=== PATIENT | male | born 1940 | race Caucasian/White ===

== ENCOUNTER 2017-05-19 16:13 | Inpatient (IN) | payer MEDICARE ==
[2017-05-19] MEDS ORDERED: VANCOMYCIN IV PER PHARMACY 1 EACH MISC MISCELLANE PRN (16:39)
[2017-05-19] MEDS ORDERED: VANCOMYCIN 2,000 MG in SODIUM CHLORIDE 0.9% 500 ML IVPB STA (16:46)
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
[2017-05-19 17:14] LABS: Basophils # (A) 0.1 k/uL (0-0.2); Basophils % (A) 0 %; Eosinophils # (A) 0.1 k/uL (0-0.7); Eosinophils % (A) 1 %; HCT 42.2 % (39.0-53.0); HGB 14.3 gm/dL (13.0-17.5); Lymphocytes # (A) 1.4 k/uL (1.0-4.8); Lymphocytes % (A) 8 %; MCHC 33.9 g/dL (31.0-37.0); MCV 91.4 fL (80.0-100.0); Mean Platelet Volume 9.7; Monocytes % (A) 6 %; Neutrophils # (A) 14.5 k/uL (1.3-7.7); Neutrophils % (A) 83 %; Platelet Count 127 k/uL (150-450); RBC 4.62 m/uL (4.30-5.90); RDW 13.5 % (11.5-15.5); WBC 17.4 k/uL (3.8-10.6)
[2017-05-19 17:28] LABS: Albumin 3.3 g/dL (3.5-5.0); Potassium 4.4 mmol/L (3.5-5.1); Total Bilirubin 0.9 mg/dL (0.2-1.3); Total Protein 6.7 g/dL (6.3-8.2)
[2017-05-19 18:05] LABS: INR 1.1 (<1.2); Partial Thromboplastin Time 28.4 sec (22.0-30.0); Prothrombin Time 10.8 sec (9.0-12.0)
--- NOTE | 2017-05-19 18:26 | US ---
EXAMINATION TYPE: US venous doppler duplex LE LT DATE OF EXAM: 05/19/2017 6:05 PM COMPARISON: NONE CLINICAL HISTORY: Pain. Left leg pain and edema. SIDE PERFORMED: Left TECHNIQUE: The lower extremity deep venous system is examined utilizing real time linear array sonog amelie with graded compression, doppler sonography and color-flow sonography. VESSELS IMAGED: External Iliac Vein (EIV) Common Femoral Vein Deep Femoral Vein Greater Saphenous Vein * Femoral Vein Popliteal Vein Small Saphenous Vein * Proximal Calf Veins (* superficial vessels) Left Leg: Negative for DVT No evidence of DVT left leg. IMPRESSION: Normal exam. No evidence of deep venous thrombosis in the left leg.
[2017-05-19] MEDS ORDERED: NALOXONE 0.4 MG/ML 1 ML VIAL IV PRN (18:29)
[2017-05-19] MEDS ORDERED: ONDANSETRON 4 MG/2 ML VIAL IVP PRN (18:29)
[2017-05-19] MEDS: SODIUM CHLORIDE 0.9% 1,000 ML IV SCH (19:15)
[2017-05-19 20:10] LABS: Glucose,Whole Blood 139 mg/dL (75-99)
[2017-05-19] MEDS: PROPAFENONE 150 MG TAB PO SCH (20:24)
[2017-05-19] MEDS: oxyCODONE-APAP 10-325MG 1 EACH TAB PO PRN (20:24)
[2017-05-19] MEDS: PANTOPRAZOLE 40 MG TABLET PO SCH (20:24)
[2017-05-19] MEDS: FUROSEMIDE 40 MG TAB PO SCH (20:24)
[2017-05-19] MEDS: ASPIRIN 325 MG TAB PO SCH (20:25)
[2017-05-19] MEDS ORDERED: INSULIN DETEMIR 100 UNIT/ML 10 ML VIAL SQ SCH (21:00)
[2017-05-19] MEDS: INSULIN ASPART 100 UNIT/ML 1 ML 10 ML VIAL SQ SCH (21:16)
[2017-05-20 01:18] LABS: Hemoglobin A1C 6.5 % (4.0-6.0)
[2017-05-20 05:17] LABS: Glucose,Whole Blood 31 mg/dL (75-99)
[2017-05-20] MEDS ORDERED: DEXTROSE 50%-WATER 50 ML SYRINGE IVP ONE (05:17)
[2017-05-20 05:33] LABS: Glucose,Whole Blood 107 mg/dL (75-99)
[2017-05-20 06:34] LABS: Glucose,Whole Blood 70 mg/dL (75-99)
[2017-05-20 07:14] LABS: Glucose,Whole Blood 60 mg/dL (75-99)
[2017-05-20] MEDS: SODIUM CHLORIDE 0.9% 1,000 ML IV SCH ×2 (07:25→12:37)
[2017-05-20 07:36] LABS: Glucose,Whole Blood 82 mg/dL (75-99)
[2017-05-20] MEDS: INSULIN ASPART 100 UNIT/ML 1 ML 10 ML VIAL SQ SCH ×4 (07:42→20:47)
[2017-05-20 07:50] LABS: Basophils % (A) 0 %; Eosinophils % (A) 0 %; HCT 41.5 % (39.0-53.0); HGB 13.6 gm/dL (13.0-17.5); Lymphocytes # (A) 0.8 k/uL (1.0-4.8); Lymphocytes % (A) 5 %; MCH 30.5 pg (25.0-35.0); MCHC 32.8 g/dL (31.0-37.0); MCV 93.2 fL (80.0-100.0); Mean Platelet Volume 9.7; Monocytes # (A) 0.9 k/uL (0-1.0); Monocytes % (A) 6 %; Neutrophils # (A) 12.6 k/uL (1.3-7.7); Neutrophils % (A) 87 %; Platelet Count 121 k/uL (150-450); RBC 4.46 m/uL (4.30-5.90); RDW 13.4 % (11.5-15.5); WBC 14.5 k/uL (3.8-10.6)
[2017-05-20] MEDS: LATANOPROST 0.005% OPHTH DROPS 2.5 ML BTL RIGHT EYE SCH (07:51)
[2017-05-20] MEDS: MULTIVITAMINS, THERA 1 EACH TAB PO SCH (07:51)
[2017-05-20] MEDS: PROPAFENONE 150 MG TAB PO SCH ×3 (07:52→22:17)
[2017-05-20] MEDS: BRIMONIDINE TARTRATE 0.2% DROPS 5 ML BTL RIGHT EYE SCH (07:52)
[2017-05-20] MEDS: FUROSEMIDE 40 MG TAB PO SCH ×2 (07:52→18:13)
[2017-05-20] MEDS: B COMPLEX-VIT C-VIT E-ZINC 1 EACH TAB PO SCH (07:52)
[2017-05-20] MEDS: hydrALAZINE HCL 50 MG TAB PO SCH (07:52)
[2017-05-20] MEDS: FERROUS SULFATE 325 MG TAB PO SCH (07:53)
[2017-05-20] MEDS: FOLIC ACID 1 MG TAB PO SCH (07:53)
[2017-05-20 07:58] LABS: Albumin 3.1 g/dL (3.5-5.0); Calcium 8.6 mg/dL (8.4-10.2); Potassium 3.3 mmol/L (3.5-5.1); Total Bilirubin 0.7 mg/dL (0.2-1.3); Total Protein 6.2 g/dL (6.3-8.2)
[2017-05-20] MEDS: VANCOMYCIN 2,000 MG in SODIUM CHLORIDE 0.9% 500 ML IVPB SCH (07:58)
[2017-05-20] MEDS: oxyCODONE-APAP 10-325MG 1 EACH TAB PO PRN ×3 (07:58→20:28)
[2017-05-20 08:23] LABS: Glucose,Whole Blood 88 mg/dL (75-99)
[2017-05-20 09:18] LABS: Glucose,Whole Blood 96 mg/dL (75-99)
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
[2017-05-20 11:32] LABS: Glucose,Whole Blood 132 mg/dL (75-99)
[2017-05-20] MEDS ORDERED: Potassium Replacement Protocol 1 EACH MISC MISCELLANE PRN ×2 (12:41→18:12)
[2017-05-20] MEDS: POTASSIUM CHLORIDE ER 20 MEQ TAB.ER PO SCH (14:17)
--- NOTE | 2017-05-20 14:44 | XR ---
EXAMINATION TYPE: XR chest 2V DATE OF EXAM: 05/20/2017 COMPARISON: 04/07/2014 TECHNIQUE: PA and lateral views submitted. HISTORY: Shortness of breath FINDINGS: The lungs are clear and there is no pneumothorax, pleural effusion, or focal pneumonia. There is a interstitial pattern. Arthropathy of the shoulders. Hypertrophic and degenerative change of the spine . IMPRESSION: 1. Interstitial pattern can be seen with interstitial pneumonitis, atypical pneumonia or mild venous congestion. Correlate clinically..
[2017-05-20 17:08] LABS: Glucose,Whole Blood 106 mg/dL (75-99)
[2017-05-20] MEDS ORDERED: POTASSIUM CHLORIDE ER 20 MEQ TAB.ER PO SCH (19:00)
[2017-05-20] MEDS: PANTOPRAZOLE 40 MG TABLET PO SCH (20:28)
[2017-05-20] MEDS: ASPIRIN 325 MG TAB PO SCH (20:28)
[2017-05-20 20:34] LABS: Glucose,Whole Blood 151 mg/dL (75-99)
[2017-05-20] MEDS: INSULIN DETEMIR 100 UNIT/ML 10 ML VIAL SQ SCH (20:48)
[2017-05-20] MEDS ORDERED: PREGABALIN 100 MG CAP PO SCH (21:00)
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
[2017-05-20] MEDS: AZTREONAM 2 GM in SODIUM CHLORIDE 0.9% 100 ML IVPB SCH (23:48)
[2017-05-21] MEDS: VANCOMYCIN 2,000 MG in SODIUM CHLORIDE 0.9% 500 ML IVPB SCH ×2 (01:12→17:40)
[2017-05-21 01:52] LABS: Glucose,Whole Blood 149 mg/dL (75-99)
[2017-05-21 07:30] LABS: Glucose,Whole Blood 156 mg/dL (75-99)
[2017-05-21 07:59] LABS: HCT 37.3 % (39.0-53.0); HGB 12.6 gm/dL (13.0-17.5); MCH 31.4 pg (25.0-35.0); MCHC 33.8 g/dL (31.0-37.0); Mean Platelet Volume 9.1; Platelet Count 122 k/uL (150-450); RBC 4.02 m/uL (4.30-5.90); RDW 13.3 % (11.5-15.5); WBC 11.9 k/uL (3.8-10.6)
[2017-05-21] MEDS: AZTREONAM 2 GM in SODIUM CHLORIDE 0.9% 100 ML IVPB SCH ×3 (08:06→23:23)
[2017-05-21 08:13] LABS: Calcium 8.6 mg/dL (8.4-10.2); Potassium 3.7 mmol/L (3.5-5.1)
[2017-05-21] MEDS: INSULIN ASPART 100 UNIT/ML 1 ML 10 ML VIAL SQ SCH ×4 (08:18→21:40)
[2017-05-21] MEDS: B COMPLEX-VIT C-VIT E-ZINC 1 EACH TAB PO SCH (10:07)
[2017-05-21] MEDS: FOLIC ACID 1 MG TAB PO SCH (10:08)
[2017-05-21] MEDS: MULTIVITAMINS, THERA 1 EACH TAB PO SCH (10:08)
[2017-05-21] MEDS: FERROUS SULFATE 325 MG TAB PO SCH (10:08)
[2017-05-21 10:20] LABS: Glucose,Whole Blood 192 mg/dL (75-99)
[2017-05-21] MEDS ORDERED: FUROSEMIDE 10 MG/ML 4 ML VIAL IV STA (10:20)
--- NOTE | 2017-05-21 10:38 | P.PN ---
Subjective 77-year-old gentleman admitted for sepsis secondary to left lower limb cellulitis patient is lethargic sitting on the side of the bed. Patient's chest x-ray did show some pulmonary edema along obtain a BNP probably an echocardiogram is alert in the day. I do not see any echo cardiac exam and this hospitalization patient will be the limiting monitored. Patient's pain is presently on Azetrenam and vancomycin. Objective - Vital Signs Vital signs: Vital Signs Temp 98.2 F 05/21/17 07:00 Pulse 75 05/21/17 07:00 Resp 18 05/21/17 07:00 BP 157/82 05/21/17 07:00 Pulse Ox 94 L 05/21/17 07:00 Intake & Output 05/20/17 05/21/17 05/21/17 18:59 06:59 18:59 Intake Total 500 800 Output Total 251 300 Balance 500 549 -300 Intake: Intake, IV Titration 500 680 Amount Aztreonam 2 gm In Sodium 100 Chloride 0.9% 100 ml @ 100 mls/hr IVPB Q8HR [facility] Rx#:[id number] Sodium Chloride 0.9% 1, 80 000 ml @ 100 mls/hr IV . Q10H [facility] Rx#:[id number] Vancomycin 2,000 mg In 500 500 Sodium Chloride 0.9% 500 ml @ 167 mls/hr IVPB Q16H [facility] Rx#:[id number] Oral 120 Output: Urine 251 300 Other: Voiding Method Urinal Urinal # Voids 2 - Exam GENERAL: The patient is alert and oriented x3, not in any acute distress. Well developed, well nourished. Patient is lethargic HEENT: Pupils are round and equally reacting to light. EOMI. No scleral icterus. No conjunctival pallor. Normocephalic, atraumatic. No pharyngeal erythema. No thyromegaly. CARDIOVASCULAR: S1 and S2 present. No murmurs, rubs, or gallops. PULMONARY: Chest is clear to auscultation, no wheezing or crackles. ABDOMEN: Soft, nontender, nondistended, normoactive bowel sounds. No palpable organomegaly. MUSCULOSKELETAL: No joint swelling or deformity. EXTREMITIES: No cyanosis, clubbing, she does have increased swelling of the left leg with local is of temperature redness extending up to the mid leg area circumferential patient does have Charcot foot deformity. 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 SKIN: Mentioned above - Labs CBC & Chem 7: 05/21/17 07:06 05/21/17 07:06 Labs: Abnormal Lab Results - Last 24 Hours (Table) 05/20/17 05/20/17 05/20/17 Range/Units 11:30 17:06 20:32 WBC (3.8-10.6) k/uL RBC (4.30-5.90) m/uL Hgb (13.0-17.5) gm/dL Hct (39.0-53.0) % Plt Count (150-450) k/uL Glucose (74-99) mg/dL POC Glucose (mg/dL) 132 H 106 H 151 H (75-99) mg/dL 05/21/17 05/21/17 05/21/17 Range/Units 01:50 07:05 07:06 WBC (3.8-10.6) k/uL RBC (4.30-5.90) m/uL Hgb (13.0-17.5) gm/dL Hct (39.0-53.0) % Plt Count (150-450) k/uL Glucose 159 H (74-99) mg/dL POC Glucose (mg/dL) 149 H 156 H (75-99) mg/dL 05/21/17 05/21/17 Range/Units 07:06 10:17 WBC 11.9 H (3.8-10.6) k/uL RBC 4.02 L (4.30-5.90) m/uL Hgb 12.6 L (13.0-17.5) gm/dL Hct 37.3 L (39.0-53.0) % Plt Count 122 L (150-450) k/uL Glucose (74-99) mg/dL POC Glucose (mg/dL) 192 H (75-99) mg/dL Microbiology - Last 24 Hours (Table) 05/19/17 16:55 Blood Culture - Preliminary Blood No Growth after 24 hours Assessment and Plan Plan: -Left leg cellulitis, complicated sepsis: Patient on Vanco mycin and Azetrenam to be continued infectious disease will be consulted white blood cell count has come down. -Possible congestive heart failure chronic diastolic dysfunction with acute exacerbation patient will be given a dose of IV Lasix -Leukocytosis: Secondary to cellulitis of the left leg which is improving. -Type 2 diabetes mellitus: Blood sugars are well controlled at home patient blood sugars are low here because of which was cutting down the Lantus to 45 units rest of her regimen will be continued monitor blood sugars titrate accordingly. -Hypertension -Atrial fibrillation: Rate controlled proximal atrial fibrillation not on any anticoagulation. 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
[2017-05-21] MEDS: FUROSEMIDE 40 MG TAB PO SCH ×2 (10:44→16:26)
[2017-05-21] MEDS: PROPAFENONE 150 MG TAB PO SCH ×3 (10:44→21:07)
[2017-05-21] MEDS: BRIMONIDINE TARTRATE 0.2% DROPS 5 ML BTL RIGHT EYE SCH (10:45)
[2017-05-21] MEDS: LATANOPROST 0.005% OPHTH DROPS 2.5 ML BTL RIGHT EYE SCH (10:45)
[2017-05-21] MEDS: hydrALAZINE HCL 50 MG TAB PO SCH (10:46)
[2017-05-21 11:31] LABS: Glucose,Whole Blood 209 mg/dL (75-99)
[2017-05-21 17:11] LABS: Glucose,Whole Blood 159 mg/dL (75-99)
[2017-05-21 20:17] LABS: Glucose,Whole Blood 161 mg/dL (75-99)
[2017-05-21] MEDS: PANTOPRAZOLE 40 MG TABLET PO SCH (21:07)
[2017-05-21] MEDS: ASPIRIN 325 MG TAB PO SCH (21:07)
--- NOTE | 2017-05-21 21:38 | P.PN ---
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 He's had a major improvement of his physical status after his amputation and his relates has been much more compliant with medical therapy. The patient does have known peripheral vascular disease and has now developed significant swelling and erythema the left lower extremity with what appears to be some injury to the pretibial area. He is a chronic Charcot foot and ankle. Has not noticed any significant foot or ankle lesions or ulcerations. Leg swelling however is considerably worse than its baseline. The patient himself feels very poorly. He thinks he's had a bit of fever but no chills or rigors. The patient's family convinced him to come to Hospital, the patient's son who lives out of town threaten to fly to town to bring him to Hospital and constantly he did agree and presented emergency center. There he is not evidence of significant synovitis of the left leg as well as leukocytosis and subsequently has been admitted and has vascular surgery as well as infectious disease consultation was requested. Since admission the patient weight is feeling slightly better at this time has been able to eat some of his dinner and is denying other acute new symptoms. 05/21/2017 patient is deathly more comfortable. He's had some abdominal discomfort today and a poor appetite. Has not had nausea or emesis. The patient's relates is difficult to get him to eat today because he didn't like his dinner. We discussed that there are many other options he needs to use some protein to heal and he relates that he'll accept a tuna sandwich. He is denying fever or chills. Just feels poorly. Objective - Vital Signs Vital signs: Vital Signs Temp 97.3 F L 05/21/17 19:29 Pulse 71 05/21/17 19:29 Resp 18 05/21/17 19:29 BP 177/85 05/21/17 19:29 Pulse Ox 95 05/21/17 16:02 Intake & Output 05/21/17 05/21/17 05/22/17 06:59 18:59 06:59 Intake Total 800 Output Total 251 1875 Balance 549 -1875 Intake: Intake, IV Titration 680 Amount Aztreonam 2 gm In Sodium 100 Chloride 0.9% 100 ml @ 100 mls/hr IVPB Q8HR [facility] Rx#:[id number] Sodium Chloride 0.9% 1, 80 000 ml @ 100 mls/hr IV . Q10H ASH[facility] Rx#:[id number] Vancomycin 2,000 mg In 500 Sodium Chloride 0.9% 500 ml @ 167 mls/hr IVPB Q16H [facility] Rx#:[id number] Oral 120 Output: Urine 251 1875 Other: Voiding Method Urinal Urinal # Voids 2 1 - Exam HEENT: Anicteric conjunctiva are pink and moist nasal mucosa grossly intact without significant lesions, there is no thrush. Neck: The neck is supple without significant lymphadenopathy or thyromegaly. Lungs: Good bilateral air entry few wheezes are scattered There is no significant bronchial sounds. There is no egophony or dullness. Heart: Regular rate and rhythm with an audible S1-S2, no S3 no S4. There is no significant murmur click or rub, PMI was nondisplaced. Abdomen: Positive bowel sounds soft and nontender without palpable masses or organomegaly. There was no guarding or rebound. Extremities: The upper extremities have excellent pulses they are symmetric, no significant petechiae or telangiectasia. No splinter hemorrhages were noted. The right BKA site is intact without erythema or difficulty. The left leg is evidence of some swelling that is present distally. He has the Charcot foot and ankle that is deformed. the dense erythema that goes from the base of the toes to just below the knee is now improved and most evident on the foot today. The patient has some tenderness. There is evidence of some injury to the pretibial area has no purulence. The foot is warm with capillary refill of less than 2 seconds Neuro: Awake alert oriented to person place and time. There are no acute new gross focal sensory motor deficits. - Labs CBC & Chem 7: 05/21/17 07:06 05/21/17 07:06 Labs: Abnormal Lab Results - Last 24 Hours (Table) 05/21/17 05/21/17 05/21/17 Range/Units 01:50 07:05 07:06 WBC (3.8-10.6) k/uL RBC (4.30-5.90) m/uL Hgb (13.0-17.5) gm/dL Hct (39.0-53.0) % Plt Count (150-450) k/uL Glucose 159 H (74-99) mg/dL POC Glucose (mg/dL) 149 H 156 H (75-99) mg/dL 05/21/17 05/21/17 05/21/17 Range/Units 07:06 10:17 11:28 WBC 11.9 H (3.8-10.6) k/uL RBC 4.02 L (4.30-5.90) m/uL Hgb 12.6 L (13.0-17.5) gm/dL Hct 37.3 L (39.0-53.0) % Plt Count 122 L (150-450) k/uL Glucose (74-99) mg/dL POC Glucose (mg/dL) 192 H 209 H (75-99) mg/dL 05/21/17 05/21/17 Range/Units 17:05 20:16 WBC (3.8-10.6) k/uL RBC (4.30-5.90) m/uL Hgb (13.0-17.5) gm/dL Hct (39.0-53.0) % Plt Count (150-450) k/uL Glucose (74-99) mg/dL POC Glucose (mg/dL) 159 H 161 H (75-99) mg/dL Microbiology - Last 24 Hours (Table) 05/19/17 16:55 Blood Culture - Preliminary Blood No Growth after 48 hours Laboratory Results WBC 11.9 k/uL (3.8-10.6) H 05/21/17 07:06 RBC 4.02 m/uL (4.30-5.90) L 05/21/17 07:06 Hgb 12.6 gm/dL (13.0-17.5) L 05/21/17 07:06 Hct 37.3 % (39.0-53.0) L 05/21/17 07:06 MCV 93.0 fL (80.0-100.0) 05/21/17 07:06 MCH 31.4 pg (25.0-35.0) 05/21/17 07:06 MCHC 33.8 g/dL (31.0-37.0) 05/21/17 07:06 RDW 13.3 % (11.5-15.5) 05/21/17 07:06 Plt Count 122 k/uL (150-450) L 05/21/17 07:06 Neutrophils % 87 % 05/20/17 06:59 Lymphocytes % 5 % 05/20/17 06:59 Monocytes % 6 % 05/20/17 06:59 Eosinophils % 0 % 05/20/17 06:59 Basophils % 0 % 05/20/17 06:59 Neutrophils # 12.6 k/uL (1.3-7.7) H 05/20/17 06:59 Lymphocytes # 0.8 k/uL (1.0-4.8) L 05/20/17 06:59 Monocytes # 0.9 k/uL (0-1.0) 05/20/17 06:59 Eosinophils # 0.0 k/uL (0-0.7) 05/20/17 06:59 Basophils # 0.0 k/uL (0-0.2) 05/20/17 06:59 PT 10.8 sec (9.0-12.0) 05/19/17 16:55 INR 1.1 (<1.2) 05/19/17 16:55 APTT 28.4 sec (22.0-30.0) 05/19/17 16:55 Sodium 140 mmol/L (137-145) 05/21/17 07:06 Potassium 3.7 mmol/L (3.5-5.1) 05/21/17 07:06 Chloride 104 mmol/L (98-107) 05/21/17 07:06 Carbon Dioxide 25 mmol/L (22-30) 05/21/17 07:06 Anion Gap 11 mmol/L 05/21/17 07:06 BUN 16 mg/dL (9-20) 05/21/17 07:06 Creatinine 1.01 mg/dL (0.66-1.25) 05/21/17 07:06 Est GFR (CKD-EPI)AfAm 83 (>60 ml/min/1.73 sqM) 05/21/17 07:06 Est GFR (CKD-EPI)NonAf 72 (>60 ml/min/1.73 sqM) 05/21/17 07:06 Glucose 159 mg/dL (74-99) H 05/21/17 07:06 POC Glucose (mg/dL) 161 mg/dL (75-99) H 05/21/17 20:16 POC Glu Retread Supervisor ID Maribel Akhtar 05/21/17 20:[address] Glu mg/dL 140 05/19/17 16:55 Hemoglobin A1c 6.5 % (4.0-6.0) H 05/19/17 16:55 Plasma Lactic Acid Aurelio 1.7 mmol/L (0.7-2.0) 05/19/17 16:55 Calcium 8.6 mg/dL (8.4-10.2) 05/21/17 07:06 Magnesium 2.2 mg/dL (1.6-2.3) 05/20/17 06:59 Total Bilirubin 0.7 mg/dL (0.2-1.3) 05/20/17 06:59 AST 44 U/L (17-59) 05/20/17 06:59 ALT 30 U/L (21-72) 05/20/17 06:59 Alkaline Phosphatase 124 U/L (38-126) 05/20/17 06:59 NT-Pro-B Natriuret Pep 1200 pg/mL 05/21/17 07:06 Total Protein 6.2 g/dL (6.3-8.2) L 05/20/17 06:59 Albumin 3.1 g/dL (3.5-5.0) L 05/20/17 06:59 Microbiology 05/19/17 16:55 Blood Blood Culture - Preliminary No Growth after 48 hours Assessment and Plan (1) Cellulitis of left lower extremity Narrative/Plan: 77 show male who has a history of severe peripheral vascular disease and diabetes mellitus who had a significant right lower extremity diabetic ulceration that became gangrenous resulted in the right below-knee amputation. Now presents with a significant cajoling from his family to emergency center because of the significant sialitis the left leg. The family was concerned that he was having a process similar to that of 3 years ago which resulted in the right lower extremity amputation. The patient this time does have a cellulitis of the left leg it is Complicated by his diabetes and his Charcot foot and ankle. Antibiotic therapy is challenging given his ALLERGIES however vancomycin can be utilized and Azactam will be utilized for gram-negative coverage while awaiting culture data. Multivitamin with zinc is requested to make sure he is getting adequate protein. The joint determine when his last tetanus vaccine was. Silvadene will be applied to the extremity and reset up a bit. Duplexes performed with no evidence of any deep venous thrombosis. Vascular surgery is following. Depending on the response in the next short period of time may need further imaging studies to the limb Ayana there is no deeper infection. Does not appear to have gangrene at this time. 05/21/2017 reveals the patient to be having improvement in the last day. With the antibiotic therapy of vancomycin and Azactam, elevation, and local care with Silvadene there is been improvement especially over the pretibial area down to the ankle. Still has a dense erythema on the foot but overall is improved. He does not feel very well today with some nausea but no emesis. If convinced him to at least try a sandwich, he picks tuna. will let us know how much she is willing to eat. We'll determine his course of antibiotic therapy as he has some further improvement. Current Visit: Yes Status: Acute Code(s): L03.116 - CELLULITIS OF LEFT LOWER LIMB SNOMED Code(s): 205400602 (2) Diabetes Current Visit: Yes Status: Acute Code(s): E11.9 - TYPE 2 DIABETES MELLITUS WITHOUT COMPLICATIONS SNOMED Code(s): 05936647 (3) Leukocytosis Current Visit: Yes Status: Acute Code(s): D72.829 - ELEVATED WHITE BLOOD CELL COUNT, UNSPECIFIED SNOMED Code(s): 477881156
[2017-05-21] MEDS: INSULIN DETEMIR 100 UNIT/ML 10 ML VIAL SQ SCH (21:41)
[2017-05-22 07:20] LABS: HCT 38.9 % (39.0-53.0); HGB 13.5 gm/dL (13.0-17.5); MCHC 34.7 g/dL (31.0-37.0); MCV 92.4 fL (80.0-100.0); Mean Platelet Volume 8.9; Platelet Count 157 k/uL (150-450); RBC 4.21 m/uL (4.30-5.90); RDW 13.3 % (11.5-15.5); WBC 11.6 k/uL (3.8-10.6)
[2017-05-22 07:23] LABS: Glucose,Whole Blood 53 mg/dL (75-99)
[2017-05-22 07:31] LABS: Calcium 8.8 mg/dL (8.4-10.2); Potassium 3.3 mmol/L (3.5-5.1)
[2017-05-22 07:48] LABS: Glucose,Whole Blood 65 mg/dL (75-99)
[2017-05-22 07:58] LABS: Glucose,Whole Blood 86 mg/dL (75-99)
[2017-05-22] MEDS: AZTREONAM 2 GM in SODIUM CHLORIDE 0.9% 100 ML IVPB SCH ×3 (07:59→22:59)
[2017-05-22] MEDS ORDERED: VANCOMYCIN TROUGH DUE 1 EACH MISC MISCELLANE ONE (08:00)
[2017-05-22] MEDS: INSULIN ASPART 100 UNIT/ML 1 ML 10 ML VIAL SQ SCH ×4 (08:21→21:22)
[2017-05-22] MEDS: FOLIC ACID 1 MG TAB PO SCH (08:23)
[2017-05-22] MEDS: B COMPLEX-VIT C-VIT E-ZINC 1 EACH TAB PO SCH (08:23)
[2017-05-22] MEDS: FERROUS SULFATE 325 MG TAB PO SCH (08:23)
[2017-05-22] MEDS: FUROSEMIDE 40 MG TAB PO SCH ×2 (08:24→17:13)
[2017-05-22] MEDS: MULTIVITAMINS, THERA 1 EACH TAB PO SCH (08:24)
[2017-05-22] MEDS: PROPAFENONE 150 MG TAB PO SCH ×3 (08:25→22:59)
[2017-05-22] MEDS: LATANOPROST 0.005% OPHTH DROPS 2.5 ML BTL RIGHT EYE SCH (08:35)
[2017-05-22] MEDS: BRIMONIDINE TARTRATE 0.2% DROPS 5 ML BTL RIGHT EYE SCH (08:35)
[2017-05-22] MEDS: VANCOMYCIN 2,000 MG in SODIUM CHLORIDE 0.9% 500 ML IVPB SCH (09:49)
[2017-05-22 11:38] LABS: Glucose,Whole Blood 123 mg/dL (75-99)
[2017-05-22 17:26] LABS: Glucose,Whole Blood 206 mg/dL (75-99)
[2017-05-22] MEDS ORDERED: FUROSEMIDE 10 MG/ML 4 ML VIAL IV STA (18:11)
[2017-05-22] MEDS ORDERED: Magnesium Replacement Protocol 1 EACH MISC MISCELLANE PRN (18:13)
--- NOTE | 2017-05-22 18:20 | P.PN ---
Subjective Progress Note Date: 05/22/17 Progress note being dictated for Dr. Coughlin. Interval history:77-year-old gentleman admitted for sepsis secondary to left lower limb cellulitis patient is lethargic sitting on the side of the bed. Patient's chest x-ray did show some pulmonary edema along obtain a BNP probably an echocardiogram is alert in the day. I do not see any echo cardiac exam and this hospitalization patient will be the limiting monitored. Patient's pain is presently on Azetrenam and vancomycin. 05/22/2017 no Overnight events. Received a dose of Lasix IV push yesterday and will repeat another dose today with follow-up chest x-ray in a.m. yesterday declined echo, but consented to having one today. T-max 99. Antibiotics as per infectious disease. Preliminary blood cultures negative at 48 hours. Receiving potassium supplements as per potassium replacement protocol. Magnesium level pending. Patient declined physical therapy evaluation both yesterday and today. Objective - Vital Signs Vital signs: Vital Signs Temp 99.0 F 05/22/17 15:00 Pulse 64 05/22/17 15:00 Resp 18 05/22/17 15:00 BP 142/75 05/22/17 15:00 Pulse Ox 95 05/22/17 15:00 Intake & Output 05/21/17 05/22/17 05/22/17 18:59 06:59 18:59 Intake Total 200 Output Total 1875 400 650 Balance -1875 -200 -650 Intake: Oral 200 Output: Urine 1875 400 650 Other: Voiding Method Urinal Urinal # Voids 1 2 1 # Bowel Movements 1 - Exam GENERAL: The patient is alert and oriented x3, lying in bed, no acute distress. Well developed, well nourished. HEENT: Pupils are round and equally reacting to light. EOMI. No scleral icterus. No conjunctival pallor. Normocephalic, atraumatic. CARDIOVASCULAR: S1 and S2 present. No murmurs, rubs, or gallops. PULMONARY: Chest is clear to auscultation, no wheezing or crackles. ABDOMEN: Soft, nontender, nondistended, normoactive bowel sounds. No palpable organomegaly. MUSCULOSKELETAL: No joint swelling or deformity. EXTREMITIES: No cyanosis, clubbing, she does have increased swelling of the left leg with local is of temperature redness extending up to the mid leg area circumferential patient does have Charcot foot deformity. 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 SKIN: Mentioned above - Labs CBC & Chem 7: 05/22/17 07:06 05/22/17 07:06 Labs: Abnormal Lab Results - Last 24 Hours (Table) 05/21/17 05/22/17 05/22/17 Range/Units 20:16 07:06 07:06 WBC 11.6 H (3.8-10.6) k/uL RBC 4.21 L (4.30-5.90) m/uL Hct 38.9 L (39.0-53.0) % Potassium 3.3 L (3.5-5.1) mmol/L Glucose 58 L (74-99) mg/dL POC Glucose (mg/dL) 161 H (75-99) mg/dL 05/22/17 05/22/17 05/22/17 Range/Units 07:21 07:38 11:33 WBC (3.8-10.6) k/uL RBC (4.30-5.90) m/uL Hct (39.0-53.0) % Potassium (3.5-5.1) mmol/L Glucose (74-99) mg/dL POC Glucose (mg/dL) 53 L 65 L 123 H (75-99) mg/dL 05/22/17 Range/Units 17:23 WBC (3.8-10.6) k/uL RBC (4.30-5.90) m/uL Hct (39.0-53.0) % Potassium (3.5-5.1) mmol/L Glucose (74-99) mg/dL POC Glucose (mg/dL) 206 H (75-99) mg/dL Microbiology - Last 24 Hours (Table) 05/19/17 16:55 Blood Culture - Preliminary Blood No Growth after 48 hours Assessment and Plan Assessment: -Left leg cellulitis, complicated sepsis: Patient on Vanco mycin and Azetrenam to be continued infectious disease will be consulted white blood cell count has come down. -Possible congestive heart failure chronic diastolic dysfunction with acute exacerbation patient will be given a dose of IV Lasix -Leukocytosis: Secondary to cellulitis of the left leg which is improving. -Type 2 diabetes mellitus: Blood sugars are well controlled at home patient blood sugars are low here because of which was cutting down the Lantus to 45 units rest of her regimen will be continued monitor blood sugars titrate accordingly. -Hypertension -Atrial fibrillation: Rate controlled proximal atrial fibrillation not on any anticoagulation. 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 Electrolyte supplementation with replacement protocol as ordered.Antibiotics as per infectious disease. Echo pending. Follow-up chest x-ray in a.m. PT/OT. The impression and plan of care has been dictated as directed. : I performed a history and examination of this patient, discussed the same with the dictator. I agree with the dictator's note ,documented as a scribe. Any additional findings or plans will be noted.
[2017-05-22 20:44] LABS: Glucose,Whole Blood 169 mg/dL (75-99)
[2017-05-22] MEDS: ASPIRIN 325 MG TAB PO SCH (21:21)
[2017-05-22] MEDS: PANTOPRAZOLE 40 MG TABLET PO SCH (21:21)
[2017-05-22] MEDS: INSULIN DETEMIR 100 UNIT/ML 10 ML VIAL SQ SCH (21:51)
--- NOTE | 2017-05-22 22:43 | P.PN ---
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 He's had a major improvement of his physical status after his amputation and his relates has been much more compliant with medical therapy. The patient does have known peripheral vascular disease and has now developed significant swelling and erythema the left lower extremity with what appears to be some injury to the pretibial area. He is a chronic Charcot foot and ankle. Has not noticed any significant foot or ankle lesions or ulcerations. Leg swelling however is considerably worse than its baseline. The patient himself feels very poorly. He thinks he's had a bit of fever but no chills or rigors. The patient's family convinced him to come to Hospital, the patient's son who lives out of town threaten to fly to town to bring him to Hospital and constantly he did agree and presented emergency center. There he is not evidence of significant synovitis of the left leg as well as leukocytosis and subsequently has been admitted and has vascular surgery as well as infectious disease consultation was requested. Since admission the patient weight is feeling slightly better at this time has been able to eat some of his dinner and is denying other acute new symptoms. 05/21/2017 patient is deathly more comfortable. He's had some abdominal discomfort today and a poor appetite. Has not had nausea or emesis. The patient's relates is difficult to get him to eat today because he didn't like his dinner. We discussed that there are many other options he needs to use some protein to heal and he relates that he'll accept a tuna sandwich. He is denying fever or chills. Just feels poorly. 05/22/2017 patient feeling slightly better today, eating a bit better. He is declining physical therapy and an echocardiogram. He simply relates he would like to go home. We discussed the significant infection to his left lower extremity and the need for its improvement so does not have limb loss to that site also. Objective - Vital Signs Vital signs: Vital Signs Temp 98.2 F 05/22/17 19:19 Pulse 64 05/22/17 21:11 Resp 18 05/22/17 21:11 BP 153/77 05/22/17 19:19 Pulse Ox 95 05/22/17 15:00 Intake & Output 05/22/17 05/22/17 05/23/17 06:59 18:59 06:59 Intake Total 200 100 Output Total 400 650 Balance -200 -650 100 Intake: Intake, IV Titration 100 Amount Aztreonam 2 gm In Sodium 100 Chloride 0.9% 100 ml @ 100 mls/hr IVPB Q8HR ASHLEY Rx#:[id number] Oral 200 Output: Urine 400 650 Other: Voiding Method Urinal Urinal Urinal # Voids 2 1 # Bowel Movements 1 - Exam HEENT: Anicteric conjunctiva are pink and moist nasal mucosa grossly intact without significant lesions, there is no thrush. Neck: The neck is supple without significant lymphadenopathy or thyromegaly. Lungs: Good bilateral air entry few wheezes are scattered There is no significant bronchial sounds. There is no egophony or dullness. Heart: Regular rate and rhythm with an audible S1-S2, no S3 no S4. There is no significant murmur click or rub, PMI was nondisplaced. Abdomen: Positive bowel sounds soft and nontender without palpable masses or organomegaly. There was no guarding or rebound. Extremities: The upper extremities have excellent pulses they are symmetric, no significant petechiae or telangiectasia. No splinter hemorrhages were noted. The right BKA site is intact without erythema or difficulty. The left leg is evidence of some swelling that is present distally. He has the Charcot foot and ankle that is deformed. the dense erythema that goes from the base of the toes to just below the knee is improved and most evident on the foot today. The patient has some tenderness. There is evidence of some injury to the pretibial area has no purulence. The foot is warm with capillary refill of less than 2 seconds Neuro: Awake alert oriented to person place and time. There are no acute new gross focal sensory motor deficits. - Labs CBC & Chem 7: 05/22/17 07:06 05/22/17 07:06 Labs: Abnormal Lab Results - Last 24 Hours (Table) 05/22/17 05/22/17 05/22/17 Range/Units 07:06 07:06 07:21 WBC 11.6 H (3.8-10.6) k/uL RBC 4.21 L (4.30-5.90) m/uL Hct 38.9 L (39.0-53.0) % Potassium 3.3 L (3.5-5.1) mmol/L Glucose 58 L (74-99) mg/dL POC Glucose (mg/dL) 53 L (75-99) mg/dL 05/22/17 05/22/17 05/22/17 Range/Units 07:38 11:33 17:23 WBC (3.8-10.6) k/uL RBC (4.30-5.90) m/uL Hct (39.0-53.0) % Potassium (3.5-5.1) mmol/L Glucose (74-99) mg/dL POC Glucose (mg/dL) 65 L 123 H 206 H (75-99) mg/dL 05/22/17 Range/Units 20:43 WBC (3.8-10.6) k/uL RBC (4.30-5.90) m/uL Hct (39.0-53.0) % Potassium (3.5-5.1) mmol/L Glucose (74-99) mg/dL POC Glucose (mg/dL) 169 H (75-99) mg/dL Microbiology - Last 24 Hours (Table) 05/19/17 16:55 Blood Culture - Preliminary Blood No Growth after 72 hours Laboratory Results WBC 11.6 k/uL (3.8-10.6) H 05/22/17 07:06 RBC 4.21 m/uL (4.30-5.90) L 05/22/17 07:06 Hgb 13.5 gm/dL (13.0-17.5) 05/22/17 07:06 Hct 38.9 % (39.0-53.0) L 05/22/17 07:06 MCV 92.4 fL (80.0-100.0) 05/22/17 07:06 MCH 32.0 pg (25.0-35.0) 05/22/17 07:06 MCHC 34.7 g/dL (31.0-37.0) 05/22/17 07:06 RDW 13.3 % (11.5-15.5) 05/22/17 07:06 Plt Count 157 k/uL (150-450) 05/22/17 07:06 Neutrophils % 87 % 05/20/17 06:59 Lymphocytes % 5 % 05/20/17 06:59 Monocytes % 6 % 05/20/17 06:59 Eosinophils % 0 % 05/20/17 06:59 Basophils % 0 % 05/20/17 06:59 Neutrophils # 12.6 k/uL (1.3-7.7) H 05/20/17 06:59 Lymphocytes # 0.8 k/uL (1.0-4.8) L 05/20/17 06:59 Monocytes # 0.9 k/uL (0-1.0) 05/20/17 06:59 Eosinophils # 0.0 k/uL (0-0.7) 05/20/17 06:59 Basophils # 0.0 k/uL (0-0.2) 05/20/17 06:59 PT 10.8 sec (9.0-12.0) 05/19/17 16:55 INR 1.1 (<1.2) 05/19/17 16:55 APTT 28.4 sec (22.0-30.0) 05/19/17 16:55 Sodium 142 mmol/L (137-145) 05/22/17 07:06 Potassium 3.3 mmol/L (3.5-5.1) L 05/22/17 07:06 Chloride 102 mmol/L (98-107) 05/22/17 07:06 Carbon Dioxide 29 mmol/L (22-30) 05/22/17 07:06 Anion Gap 11 mmol/L 05/22/17 07:06 BUN 18 mg/dL (9-20) 05/22/17 07:06 Creatinine 1.00 mg/dL (0.66-1.25) 05/22/17 07:06 Est GFR (CKD-EPI)AfAm 84 (>60 ml/min/1.73 sqM) 05/22/17 07:06 Est GFR (CKD-EPI)NonAf 73 (>60 ml/min/1.73 sqM) 05/22/17 07:06 Glucose 58 mg/dL (74-99) L 05/22/17 07:06 POC Glucose (mg/dL) 169 mg/dL (75-99) H 05/22/17 20:43 POC Glu [employer] ID Maribel Akhtar 05/22/17 20:[address] Glu mg/dL 140 05/19/17 16:55 Hemoglobin A1c 6.5 % (4.0-6.0) H 05/19/17 16:55 Plasma Lactic Acid Aurelio 1.7 mmol/L (0.7-2.0) 05/19/17 16:55 Calcium 8.8 mg/dL (8.4-10.2) 05/22/17 07:06 Magnesium 2.0 mg/dL (1.6-2.3) 05/22/17 07:06 Total Bilirubin 0.7 mg/dL (0.2-1.3) 05/20/17 06:59 AST 44 U/L (17-59) 05/20/17 06:59 ALT 30 U/L (21-72) 05/20/17 06:59 Alkaline Phosphatase 124 U/L (38-126) 05/20/17 06:59 NT-Pro-B Natriuret Pep 1200 pg/mL 05/21/17 07:06 Total Protein 6.2 g/dL (6.3-8.2) L 05/20/17 06:59 Albumin 3.1 g/dL (3.5-5.0) L 05/20/17 06:59 Vancomycin Trough 21.4 ug/mL 05/22/17 07:06 Microbiology 05/19/17 16:55 Blood Blood Culture - Preliminary No Growth after 72 hours Assessment and Plan (1) Cellulitis of left lower extremity Narrative/Plan: 77 show male who has a history of severe peripheral vascular disease and diabetes mellitus who had a significant right lower extremity diabetic ulceration that became gangrenous resulted in the right below-knee amputation. Now presents with a significant cajoling from his family to emergency center because of the significant sialitis the left leg. The family was concerned that he was having a process similar to that of 3 years ago which resulted in the right lower extremity amputation. The patient this time does have a cellulitis of the left leg it is Complicated by his diabetes and his Charcot foot and ankle. Antibiotic therapy is challenging given his ALLERGIES however vancomycin can be utilized and Azactam will be utilized for gram-negative coverage while awaiting culture data. Multivitamin with zinc is requested to make sure he is getting adequate protein. The joint determine when his last tetanus vaccine was. Silvadene will be applied to the extremity and reset up a bit. Duplexes performed with no evidence of any deep venous thrombosis. Vascular surgery is following. Depending on the response in the next short period of time may need further imaging studies to the limb Ayana there is no deeper infection. Does not appear to have gangrene at this time. 05/21/2017 reveals the patient to be having improvement in the last day. With the antibiotic therapy of vancomycin and Azactam, elevation, and local care with Silvadene there is been improvement especially over the pretibial area down to the ankle. Still has a dense erythema on the foot but overall is improved. He does not feel very well today with some nausea but no emesis. If convinced him to at least try a sandwich, he picks tuna. will let us know how much she is willing to eat. We'll determine his course of antibiotic therapy as he has some further improvement. 05/22/2017 patient's mentation is somewhat improved again today. 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 He relates his pain is not a significant issue. He is taking in a little more fluid today. He is denying fevers or chills and is tolerating the wrap without discomfort. Leukocytosis is improving and hyperglycemia is well controlled with some hypoglycemia earlier today. There is some improvement with the current intravenous antibiotic therapy of vancomycin and Azactam. This will continue and unclear at this point in time the overall discharge plan, the goal is for leg salvage and may require outpatient antibiotic therapy. Current Visit: Yes Status: Acute Code(s): L03.116 - CELLULITIS OF LEFT LOWER LIMB SNOMED Code(s): 682478498 (2) Diabetes Current Visit: Yes Status: Acute Code(s): E11.9 - TYPE 2 DIABETES MELLITUS WITHOUT COMPLICATIONS SNOMED Code(s): 80479618 (3) Leukocytosis Current Visit: Yes Status: Acute Code(s): D72.829 - ELEVATED WHITE BLOOD CELL COUNT, UNSPECIFIED SNOMED Code(s): 247910098
[2017-05-23] MEDS: AZTREONAM 2 GM in SODIUM CHLORIDE 0.9% 100 ML IVPB SCH ×2 (07:13→17:05)
[2017-05-23 07:22] VITALS: PULSE 64
[2017-05-23 07:33] LABS: Glucose,Whole Blood 190 mg/dL (75-99)
[2017-05-23] MEDS: INSULIN ASPART 100 UNIT/ML 1 ML 10 ML VIAL SQ SCH ×3 (07:41→17:43)
[2017-05-23 08:19] LABS: Calcium 8.6 mg/dL (8.4-10.2); Magnesium 1.8 mg/dL (1.6-2.3); Potassium 3.2 mmol/L (3.5-5.1)
[2017-05-23] MEDS ORDERED: VANCOMYCIN 2,000 MG in SODIUM CHLORIDE 0.9% 500 ML IVPB SCH (09:00)
[2017-05-23] MEDS: B COMPLEX-VIT C-VIT E-ZINC 1 EACH TAB PO SCH (09:02)
[2017-05-23] MEDS: FOLIC ACID 1 MG TAB PO SCH (09:02)
[2017-05-23] MEDS: FERROUS SULFATE 325 MG TAB PO SCH (09:02)
[2017-05-23] MEDS: MULTIVITAMINS, THERA 1 EACH TAB PO SCH (09:03)
[2017-05-23] MEDS: FUROSEMIDE 40 MG TAB PO SCH ×2 (09:03→16:48)
[2017-05-23] MEDS: PROPAFENONE 150 MG TAB PO SCH ×2 (09:03→16:48)
[2017-05-23] MEDS: LATANOPROST 0.005% OPHTH DROPS 2.5 ML BTL RIGHT EYE SCH (09:05)
[2017-05-23] MEDS: BRIMONIDINE TARTRATE 0.2% DROPS 5 ML BTL RIGHT EYE SCH (09:05)
[2017-05-23] MEDS ORDERED: Magnesium Replacement Protocol 1 EACH MISC MISCELLANE PRN (09:49)
--- NOTE | 2017-05-23 11:45 | ECHOF ---
Referral Reason:LV function MEASUREMENTS -------- HEIGHT: 180.3 cm WEIGHT: 122.5 kg BP: 153/77 RVIDd: 3.4 cm (< 3.3) IVSd: 1.2 cm (0.6 - 1.1) LVIDd: 5.7 cm (3.9 - 5.3) LVPWd: 0.9 cm (0.6 - 1.1) IVSs: 1.4 cm LVIDs: 4.2 cm LVPWs: 1.6 cm LA Diam: 3.6 cm (2.7 - 3.8) Ao Diam: 3.5 cm (2.0 - 3.7) AV Cusp: 2.7 cm (1.5 - 2.6) MV EXCURSION: 16.594 mm (> 18.000) MV EF SLOPE: 41 mm/s (70 - 150) EPSS: 0.6 cm MV E Jose: 0.57 m/s MV DecT: 394 ms MV A Jose: 0.66 m/s MV E/A Ratio: 0.85 RAP: 5.00 mmHg RVSP: 33.76 mmHg FINDINGS -------- Sinus rhythm. This was a technically difficult study with suboptimal apical views. The left ventricular size is normal. There is borderline concentric left ventricular hypertrophy. Overall left ventricular systolic function is normal with, an EF between 60 - 65 %. The right ventricle is mildly enlarged. The left atrial size is normal. The right atrium is normal in size. 5 ml of Lumason was utilized for enhancement of images. The aortic valve is trileaflet and appears structurally normal. Mild mitral annular calcification present. Mild tricuspid regurgitation present. Right ventricular systolic pressure is normal at < 35 mmHg. Trace/mild (physiologic) pulmonic regurgitation. The aortic root size is normal. Normal inferior vena cava with normal inspiratory collapse consistent with estimated right atrial pre ssure of 5 mmHg. There is no pericardial effusion. CONCLUSIONS -------- 1. Sinus rhythm. 2. This was a technically difficult study with suboptimal apical views. 3. The left ventricular size is normal. 4. There is borderline concentric left ventricular hypertrophy. 5. Overall left ventricular systolic function is normal with, an EF between 60 - 65 %. 6. The right ventricle is mildly enlarged. 7. The left atrial size is normal. 8. The right atrium is normal in size. 9. 5 ml of Lumason was utilized for enhancement of images. 10. The aortic valve is trileaflet and appears structurally normal. 11. Mild mitral annular calcification present. 12. Mild tricuspid regurgitation present. 13. Right ventricular systolic pressure is normal at < 35 mmHg. 14. Trace/mild (physiologic) pulmonic regurgitation. 15. The aortic root size is normal. 16. Normal inferior vena cava with normal inspiratory collapse consistent with estimated right atrial pressure of 5 mmHg. 17. There is no pericardial effusion. BRAZER RESISTANCE: Kimberly Foss RDCS
[2017-05-23 11:52] LABS: Glucose,Whole Blood 195 mg/dL (75-99)
[2017-05-23 15:54] VITALS: BP 140/75; RESP 16; TEMP 98.3
[2017-05-23] MEDS ORDERED: SILVER sulfADIAZINE Cream 400 GM 1 APPLIC APPLIC TOPICAL SCH (16:49)
--- NOTE | 2017-05-23 16:57 | P.DS ---
Providers Date of admission: 05/19/17 18:39 Expected date of discharge: 05/23/17 Attending physician: Kathy Coughlin Consults: 05/20/17 10:40 Consult Physician Routine Consulting Provider: Rex Govea Reason/Comments: Cellulitis Do you want consulting provider notified?: Yes Primary care physician: Rosemray Gandara Hospital Course: Final DIagnoses: -Left leg cellulitis, complicated sepsis -congestive heart failure chronic diastolic dysfunction with acute exacerbation -Leukocytosis: Secondary to cellulitis of the left leg which is improving. -Type 2 diabetes mellitus: Home Lantus dose decreased -Hypertension -Atrial fibrillation: Rate controlled proximal atrial fibrillation not on any anticoagulation. 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 Maintained on Aztreonam and vancomycin. Chest x- ray did show some pulmonary edema. Received IVP Lasix. Declined follow-up chest x-ray. Echo suboptimal, reporting borderline concentric left ventricular hypertrophy, normal LV function with EF 60-65%. Evaluated by infectious disease. Declined physical therapy evaluation until today. Significant clinical improvement. Patient has been cleared by infectious disease for discharge. Patient is being discharged home in a stable condition with guarded prognosis. Microbiology 05/19/17 16:55 Blood Blood Culture - Preliminary No Growth after 72 hours GENERAL: VSS,alert and oriented x3, lying in bed, no acute distress. CARDIOVASCULAR: S1 and S2 present. No murmurs, rubs, or gallops. PULMONARY: Chest is clear to auscultation, no wheezing or crackles. ABDOMEN: Soft, nontender, nondistended, normoactive bowel sounds. No palpable organomegaly. EXTREMITIES: No cyanosis, clubbing, she does have increased swelling of the left leg with local is of temperature redness extending up to the mid leg area circumferential patient does have Charcot foot deformity. 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 The impression and plan of care has been dictated as directed. : I performed a history and examination of this patient, discussed the same with the dictator. I agree with the dictator's note ,documented as a scribe. Any additional findings or plans will be noted. Time taken: 35 minutes Patient Condition at Discharge: Stable Plan - Discharge Summary Discharge Rx Participant: No New Discharge Prescriptions: New Linezolid [Zyvox] 600 mg PO Q12H #14 tab Potassium Chloride [K-Tab ER] 20 meq PO DAILY #30 tablet.er Continue Propafenone Sr [Rythmol Sr] 225 mg PO Q12HR Omeprazole [PriLOSEC] 20 mg PO HS Garlic 1 tab PO DAILY Folic Acid 1 mg PO DAILY Fish Oil/Dha/Epa [Fish Oil 1,200 mg Fish Oil] 1,000 mg PO DAILY Aspirin 325 mg PO HS Brimonidine Tartrate [Alphagan P 0.1% Ophth Soln] 1 drops RIGHT EYE DAILY Travoprost [Travatan Z 0.004%] 1 drop RIGHT EYE DAILY oxyCODONE HCL/ACETAMINOPHEN [Percocet 10-325 mg] 1 tab PO Q6HR PRN PRN Reason: Pain SILVER sulfADIAZINE Cream [Silvadene 1% Cream] 1 applic TOPICAL DAILY Multivitamins, Thera [Multivitamin (formulary)] 1 tab PO DAILY Ferrous Sulfate [Iron (65 MG Elemental)] 325 mg PO DAILY INSULIN LISPRO (HumaLOG) [humaLOG] See Protocol SQ AC-TID Vitamin B Complex 1 cap PO DAILY Changed Furosemide [Lasix] 40 mg PO DAILY #0 Insulin Glargine [Lantus] 40 unit SQ HS #0 Discontinued Tumeric Root Extract 500 mg PO DAILY Cinnamon 1,000 mg PO DAILY Apple Cider Vinegar 600 mg PO DAILY Discharge Medication List Aspirin 325 mg PO HS 06/17/13 [History] Brimonidine Tartrate [Alphagan P 0.1% Ophth Soln] 1 drops RIGHT EYE DAILY [History] Fish Oil/Dha/Epa [Fish Oil 1,200 mg Fish Oil] 1,000 mg PO DAILY 06/17/13 [ History] Folic Acid 1 mg PO DAILY 06/17/13 [History] Garlic 1 tab PO DAILY 06/17/13 [History] Omeprazole [PriLOSEC] 20 mg PO HS 06/17/13 [History] Propafenone Sr [Rythmol Sr] 225 mg PO Q12HR 06/17/13 [History] Travoprost [Travatan Z 0.004%] 1 drop RIGHT EYE DAILY 06/30/14 [History] Ferrous Sulfate [Iron (65 MG Elemental)] 325 mg PO DAILY 05/19/17 [History] INSULIN LISPRO (HumaLOG) [humaLOG] See Protocol SQ AC-TID 05/19/17 [History] Multivitamins, Thera [Multivitamin (formulary)] 1 tab PO DAILY 05/19/17 [History ] SILVER sulfADIAZINE Cream [Silvadene 1% Cream] 1 applic TOPICAL DAILY 05/19/17 [ History] Vitamin B Complex 1 cap PO DAILY 05/19/17 [History] oxyCODONE HCL/ACETAMINOPHEN [Percocet 10-325 mg] 1 tab PO Q6HR PRN 05/19/17 [ History] Furosemide [Lasix] 40 mg PO DAILY #0 05/23/17 [Rx] Insulin Glargine [Lantus] 40 unit SQ HS #0 05/23/17 [Rx] Linezolid [Zyvox] 600 mg PO Q12H #14 tab 05/23/17 [Rx] Potassium Chloride [K-Tab ER] 20 meq PO DAILY #30 tablet.er 05/23/17 [Rx] Follow up Appointment(s)/Referral(s): Rex Govea MD [STAFF PHYSICIAN] - 2 Weeks (Patient to call Dr. Woo's office Friday to schedule follow up appointment. The office is closed at time of discharge. ) Rosemary Gandara DO [Primary Care Provider] - 3 Days (Patient to call Dr. Gandara's office Friday morning to schedule follow up appointment. The office is closed at time of discharge. ) Ambulatory/Diagnostic Orders: Complete Blood Count w/diff [LAB.AMB] Time Frame: 3 Days, Location: Determined By Patient Patient Instructions/Handouts: Linezolid (By mouth), Cellulitis (DC) Activity/Diet/Wound Care/Special Instructions: [facility]Wound care as per ID
[2017-05-23 17:40] LABS: Glucose,Whole Blood 224 mg/dL (75-99)
--- NOTE | 2017-05-23 23:23 | P.PN ---
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 He's had a major improvement of his physical status after his amputation and his relates has been much more compliant with medical therapy. The patient does have known peripheral vascular disease and has now developed significant swelling and erythema the left lower extremity with what appears to be some injury to the pretibial area. He is a chronic Charcot foot and ankle. Has not noticed any significant foot or ankle lesions or ulcerations. Leg swelling however is considerably worse than its baseline. The patient himself feels very poorly. He thinks he's had a bit of fever but no chills or rigors. The patient's family convinced him to come to Hospital, the patient's son who lives out of town threaten to fly to town to bring him to Hospital and constantly he did agree and presented emergency center. There he is not evidence of significant synovitis of the left leg as well as leukocytosis and subsequently has been admitted and has vascular surgery as well as infectious disease consultation was requested. Since admission the patient weight is feeling slightly better at this time has been able to eat some of his dinner and is denying other acute new symptoms. 05/21/2017 patient is deathly more comfortable. He's had some abdominal discomfort today and a poor appetite. Has not had nausea or emesis. The patient's relates is difficult to get him to eat today because he didn't like his dinner. We discussed that there are many other options he needs to use some protein to heal and he relates that he'll accept a tuna sandwich. He is denying fever or chills. Just feels poorly. 05/22/2017 patient feeling slightly better today, eating a bit better. He is declining physical therapy and an echocardiogram. He simply relates he would like to go home. We discussed the significant infection to his left lower extremity and the need for its improvement so does not have limb loss to that site also. 05/23/2017 patient is feeling better and eating well. He has been somewhat uncooperative but did allow an echocardiogram. He relates he just wants to go home. He is feeling better and is denying fevers or chills. He is no longer concerned about loss of his left limb. In general he has no other new complaints. No nausea or emesis and no fevers. Objective - Vital Signs Vital signs: Vital Signs Temp 98.3 F 05/23/17 15:00 Pulse 64 05/23/17 16:00 Resp 16 05/23/17 16:00 BP 140/75 05/23/17 15:00 Pulse Ox 94 L 05/23/17 15:00 Intake & Output 05/23/17 05/23/17 05/24/17 06:59 18:59 06:59 Intake Total 200 1800 Output Total 1051 203 Balance -851 1597 Intake: Intake, IV Titration 200 600 Amount Aztreonam 2 gm In Sodium 200 100 Chloride 0.9% 100 ml @ 100 mls/hr IVPB Q8HR [facility] Rx#:[id number] Vancomycin 2,000 mg In 500 Sodium Chloride 0.9% 500 ml @ 167 mls/hr IVPB Q24HR [facility] Rx#:[id number] Oral 1200 Output: Urine 1050 200 Stool 1 3 Other: Voiding Method Urinal Urinal # Voids 4 # Bowel Movements 1 - Exam HEENT: Anicteric conjunctiva are pink and moist nasal mucosa grossly intact without significant lesions, there is no thrush. Neck: The neck is supple without significant lymphadenopathy or thyromegaly. Lungs: Good bilateral air entry few wheezes are scattered There is no significant bronchial sounds. There is no egophony or dullness. Heart: Regular rate and rhythm with an audible S1-S2, no S3 no S4. There is no significant murmur click or rub, PMI was nondisplaced. Abdomen: Positive bowel sounds soft and nontender without palpable masses or organomegaly. There was no guarding or rebound. Extremities: The upper extremities have excellent pulses they are symmetric, no significant petechiae or telangiectasia. No splinter hemorrhages were noted. The right BKA site is intact without erythema or difficulty. The left leg is evidence of some swelling that is present distally. He has the Charcot foot and ankle that is deformed. the dense erythema and one from the foot to below the knee is now much improved The patient has little tenderness. There is evidence of some injury to the pretibial area has no purulence and is improving. The foot is warm with capillary refill of less than 2 seconds Neuro: Awake alert oriented to person place and time. There are no acute new gross focal sensory motor deficits. - Labs CBC & Chem 7: 05/22/17 07:06 05/23/17 07:27 Labs: Abnormal Lab Results - Last 24 Hours (Table) 05/23/17 05/23/17 05/23/17 Range/Units 07:11 07:27 11:31 Potassium 3.2 L (3.5-5.1) mmol/L Glucose 191 H (74-99) mg/dL POC Glucose (mg/dL) 190 H 195 H (75-99) mg/dL 05/23/17 Range/Units 17:29 Potassium (3.5-5.1) mmol/L Glucose (74-99) mg/dL POC Glucose (mg/dL) 224 H (75-99) mg/dL Microbiology - Last 24 Hours (Table) 05/19/17 16:55 Blood Culture - Preliminary Blood No Growth after 96 hours Laboratory Results WBC 11.6 k/uL (3.8-10.6) H 05/22/17 07:06 RBC 4.21 m/uL (4.30-5.90) L 05/22/17 07:06 Hgb 13.5 gm/dL (13.0-17.5) 05/22/17 07:06 Hct 38.9 % (39.0-53.0) L 05/22/17 07:06 MCV 92.4 fL (80.0-100.0) 05/22/17 07:06 MCH 32.0 pg (25.0-35.0) 05/22/17 07:06 MCHC 34.7 g/dL (31.0-37.0) 05/22/17 07:06 RDW 13.3 % (11.5-15.5) 05/22/17 07:06 Plt Count 157 k/uL (150-450) 05/22/17 07:06 Neutrophils % 87 % 05/20/17 06:59 Lymphocytes % 5 % 05/20/17 06:59 Monocytes % 6 % 05/20/17 06:59 Eosinophils % 0 % 05/20/17 06:59 Basophils % 0 % 05/20/17 06:59 Neutrophils # 12.6 k/uL (1.3-7.7) H 05/20/17 06:59 Lymphocytes # 0.8 k/uL (1.0-4.8) L 05/20/17 06:59 Monocytes # 0.9 k/uL (0-1.0) 05/20/17 06:59 Eosinophils # 0.0 k/uL (0-0.7) 05/20/17 06:59 Basophils # 0.0 k/uL (0-0.2) 05/20/17 06:59 PT 10.8 sec (9.0-12.0) 05/19/17 16:55 INR 1.1 (<1.2) 05/19/17 16:55 APTT 28.4 sec (22.0-30.0) 05/19/17 16:55 Sodium 141 mmol/L (137-145) 05/23/17 07:27 Potassium 3.2 mmol/L (3.5-5.1) L 05/23/17 07:27 Chloride 102 mmol/L (98-107) 05/23/17 07:27 Carbon Dioxide 28 mmol/L (22-30) 05/23/17 07:27 Anion Gap 11 mmol/L 05/23/17 07:27 BUN 17 mg/dL (9-20) 05/23/17 07:27 Creatinine 1.01 mg/dL (0.66-1.25) 05/23/17 07:27 Est GFR (CKD-EPI)AfAm 83 (>60 ml/min/1.73 sqM) 05/23/17 07:27 Est GFR (CKD-EPI)NonAf 72 (>60 ml/min/1.73 sqM) 05/23/17 07:27 Glucose 191 mg/dL (74-99) H 05/23/17 07:27 POC Glucose (mg/dL) 224 mg/dL (75-99) H 05/23/17 17:29 POC Glu Clam Shucker NAT Ileana Upton 05/23/17 17:[address] Glu mg/dL 140 05/19/17 16:55 Hemoglobin A1c 6.5 % (4.0-6.0) H 05/19/17 16:55 Plasma Lactic Acid Aurelio 1.7 mmol/L (0.7-2.0) 05/19/17 16:55 Calcium 8.6 mg/dL (8.4-10.2) 05/23/17 07:27 Magnesium 1.8 mg/dL (1.6-2.3) 05/23/17 07:27 Total Bilirubin 0.7 mg/dL (0.2-1.3) 05/20/17 06:59 AST 44 U/L (17-59) 05/20/17 06:59 ALT 30 U/L (21-72) 05/20/17 06:59 Alkaline Phosphatase 124 U/L (38-126) 05/20/17 06:59 NT-Pro-B Natriuret Pep 1200 pg/mL 05/21/17 07:06 Total Protein 6.2 g/dL (6.3-8.2) L 05/20/17 06:59 Albumin 3.1 g/dL (3.5-5.0) L 05/20/17 06:59 Vancomycin Trough 21.4 ug/mL 05/22/17 07:06 Microbiology 05/19/17 16:55 Blood Blood Culture - Preliminary No Growth after 96 hours Assessment and Plan (1) Cellulitis of left lower extremity Narrative/Plan: 77 show male who has a history of severe peripheral vascular disease and diabetes mellitus who had a significant right lower extremity diabetic ulceration that became gangrenous resulted in the right below-knee amputation. Now presents with a significant cajoling from his family to emergency center because of the significant sialitis the left leg. The family was concerned that he was having a process similar to that of 3 years ago which resulted in the right lower extremity amputation. The patient this time does have a cellulitis of the left leg it is Complicated by his diabetes and his Charcot foot and ankle. Antibiotic therapy is challenging given his ALLERGIES however vancomycin can be utilized and Azactam will be utilized for gram-negative coverage while awaiting culture data. Multivitamin with zinc is requested to make sure he is getting adequate protein. The joint determine when his last tetanus vaccine was. Silvadene will be applied to the extremity and reset up a bit. Duplexes performed with no evidence of any deep venous thrombosis. Vascular surgery is following. Depending on the response in the next short period of time may need further imaging studies to the limb Ayana there is no deeper infection. Does not appear to have gangrene at this time. 05/21/2017 reveals the patient to be having improvement in the last day. With the antibiotic therapy of vancomycin and Azactam, elevation, and local care with Silvadene there is been improvement especially over the pretibial area down to the ankle. Still has a dense erythema on the foot but overall is improved. He does not feel very well today with some nausea but no emesis. If convinced him to at least try a sandwich, he picks tuna. will let us know how much she is willing to eat. We'll determine his course of antibiotic therapy as he has some further improvement. 05/22/2017 patient's mentation is somewhat improved again today. 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 He relates his pain is not a significant issue. He is taking in a little more fluid today. He is denying fevers or chills and is tolerating the wrap without discomfort. Leukocytosis is improving and hyperglycemia is well controlled with some hypoglycemia earlier today. There is some improvement with the current intravenous antibiotic therapy of vancomycin and Azactam. This will continue and unclear at this point in time the overall discharge plan, the goal is for leg salvage and may require outpatient antibiotic therapy. 05/23/2017 reveals the patient is now improved. His mentation is at his baseline. He is anxious and quite adamant about going home. It is noted the patient has a prior history of gangrene to the right lower extremity with resultant [id number] amputation. It this time does not appear to be having significant gangrenous changes in the cellulitis is showing marked improvement as the swelling to the foot. The patient will be transitioned to oral Zyvox 600 mg early every 12 hours for the next 7 days for the significant cellulitis of the left leg. It is reinforced on multiple occasions that when he gets to home he needs to elevate his lower extremities until his edema has resolved. He is aware of his edema and that is easily visualized in the left leg but also because the prosthesis the right leg is not fitting well because of the edema. He'll need to wear his test borer and very cautiously restart wearing his prosthesis when the edema is improved. The inability to get the prosthesis on readily has because of the lower extremity edema. Patient is treated with diuretic therapy this should continue. The patient understands that he should limit his fluid intake so that is not excessive and elevate his limbs which will help reduce the edema to the lower extremities and assist in his recovery and allow him to get up and moving again. He may follow the office if he desires. Status: Acute Code(s): L03.116 - CELLULITIS OF LEFT LOWER LIMB SNOMED Code(s ): 390063577 (2) Diabetes Status: Acute Code(s): E11.9 - TYPE 2 DIABETES MELLITUS WITHOUT COMPLICATIONS SNOMED Code(s): 89426420 (3) Leukocytosis Status: Acute Code(s): D72.829 - ELEVATED WHITE BLOOD CELL COUNT, UNSPECIFIED SNOMED Code(s): 030012118
[2017-05-26] MEDS ORDERED: VANCOMYCIN TROUGH DUE 1 EACH MISC MISCELLANE ONE (08:00)
== END 2017-05-23 18:14 | disposition home or self-care (01) | DRG 871 ==
LOC: EC 16:13 → 5MS5E 18:39 → OBSVTOIN 18:39 → INTOOBSV 18:39 → 5MS5E 05-20 22:34
PROVIDERS: ADMIT Internal Medicine; ATTEND Internal Medicine
DX: A41.9 Sepsis, unspecified organism (principal); I50.33 Acute on chronic diastolic (congestive) heart failure; E11.21 Type 2 diabetes mellitus with diabetic nephropathy; E11.42 Type 2 diabetes mellitus with diabetic polyneuropathy; E11.51 Type 2 diabetes mellitus with diabetic peripheral angiopathy without gangrene; E11.649 Type 2 diabetes mellitus with hypoglycemia without coma; E11.65 Type 2 diabetes mellitus with hyperglycemia; I48.91 Unspecified atrial fibrillation; G25.81 Restless legs syndrome; E87.1 Hypo-osmolality and hyponatremia; I13.0 Hypertensive heart and chronic kidney disease with heart failure and stage 1 through stage 4 chronic kidney disease, or unspecified chronic kidney disease; L03.116 Cellulitis of left lower limb; E11.22 Type 2 diabetes mellitus with diabetic chronic kidney disease; E11.610 Type 2 diabetes mellitus with diabetic neuropathic arthropathy; E78.5 Hyperlipidemia, unspecified; E87.6 Hypokalemia; G47.30 Sleep apnea, unspecified; H40.9 Unspecified glaucoma; H54.61 Unqualified visual loss, right eye, normal vision left eye; H91.90 Unspecified hearing loss, unspecified ear; M14.679 Charcot's joint, unspecified ankle and foot; N18.2 Chronic kidney disease, stage 2 (mild); Z79.4 Long term (current) use of insulin; Z79.82 Long term (current) use of aspirin; Z82.49 Family history of ischemic heart disease and other diseases of the circulatory system; Z83.3 Family history of diabetes mellitus; Z87.891 Personal history of nicotine dependence; Z89.511 Acquired absence of right leg below knee; Z79.891 Long term (current) use of opiate analgesic; Z79.899 Other long term (current) drug therapy; Z88.8 Allergy status to other drugs, medicaments and biological substances; Z88.2 Allergy status to sulfonamides; Z91.018 Allergy to other foods; Z98.42 Cataract extraction status, left eye; Z86.14 Personal history of Methicillin resistant Staphylococcus aureus infection; Z83.49 Family history of other endocrine, nutritional and metabolic diseases
CPT/HCPCS: 36415; 71046; 80048; 80053; 80202; 83036; 83605; 83735; 83880; 84132; 85025; 85027; 85610; 85730; 87040; 93306; 96365; 96366; 99284

== ENCOUNTER 2018-04-10 14:56 | Inpatient (IN) | payer MEDICARE ==
[2018-04-10] MEDS ORDERED: VANCOMYCIN IV PER PHARMACY 1 EACH MISC MISCELLANE PRN (15:18)
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
[2018-04-10] MEDS ORDERED: ACETAMINOPHEN TAB 325 MG TAB PO STA (15:38)
[2018-04-10] MEDS ORDERED: RX INFO: IV CONTRAST WAS GIVEN 1 EACH MISC MISCELLANE PRN (15:40)
[2018-04-10] MEDS ORDERED: VANCOMYCIN 1,750 MG in SODIUM CHLORIDE 0.9% 500 ML 500 ML IVPB ONE (16:00)
[2018-04-10 17:10] LABS: Basophils # (A) 0.1 k/uL (0-0.2); Basophils % (A) 1 %; Eosinophils # (A) 0.4 k/uL (0-0.7); Eosinophils % (A) 3 %; HCT 39.8 % (39.0-53.0); Lymphocytes # (A) 2.1 k/uL (1.0-4.8); Lymphocytes % (A) 17 %; MCH 32.2 pg (25.0-35.0); MCHC 32.7 g/dL (31.0-37.0); MCV 98.6 fL (80.0-100.0); Mean Platelet Volume 9.1; Monocytes # (A) 0.7 k/uL (0-1.0); Monocytes % (A) 6 %; Neutrophils # (A) 8.5 k/uL (1.3-7.7); Neutrophils % (A) 71 %; Platelet Count 197 k/uL (150-450); RBC 4.04 m/uL (4.30-5.90); RDW 13.4 % (11.5-15.5); WBC 11.9 k/uL (3.8-10.6)
[2018-04-10 17:18] LABS: Partial Thromboplastin Time 27.1 sec (22.0-30.0); Prothrombin Time 10.5 sec (9.0-12.0)
[2018-04-10 17:19] LABS: Albumin 3.2 g/dL (3.5-5.0); Calcium 8.9 mg/dL (8.4-10.2); Potassium 4.1 mmol/L (3.5-5.1); Total Protein 6.5 g/dL (6.3-8.2)
--- NOTE | 2018-04-10 18:20 | US ---
EXAMINATION TYPE: US venous doppler duplex LE LT DATE OF EXAM: 04/10/2018 6:06 PM COMPARISON: US CLINICAL HISTORY: L leg swelling. Lt leg swelling/ cellulitis SIDE PERFORMED: Left TECHNIQUE: The lower extremity deep venous system is examined utilizing real time linear array sonog amelie with graded compression, doppler sonography and color-flow sonography. VESSELS IMAGED: External Iliac Vein (EIV) Common Femoral Vein Deep Femoral Vein Greater Saphenous Vein * Femoral Vein Popliteal Vein Small Saphenous Vein * Proximal Calf Veins (* superficial vessels) Left Leg: Negative for DVT, probable complex Power's Cyst left pop fossa= 2.7 x 1.9 x 2.1 cm IMPRESSION: No evidence of deep venous thrombosis in the left leg. There is a popliteal cyst. There i s some internal debris.
[2018-04-10] MEDS ORDERED: NALOXONE 0.4 MG/ML 1 ML VIAL IV PRN (18:31)
[2018-04-10] MEDS ORDERED: HYDROcodone/APAP 5-325MG 1 EACH TAB PO PRN (18:31)
[2018-04-10] MEDS ORDERED: oxyCODONE-APAP 10-325MG 1 EACH TAB PO PRN (20:00)
[2018-04-10] MEDS ORDERED: ACETAMINOPHEN TAB 500 MG TAB PO PRN (20:03)
[2018-04-10] MEDS ORDERED: TEMAZEPAM 15 MG CAP PO PRN (20:03)
[2018-04-10] MEDS ORDERED: ALPRAZolam 0.25 MG TAB PO PRN (20:03)
[2018-04-10] MEDS ORDERED: NON-FORMULARY DRUG (Omeprazole 20 MG) PO SCH (21:00)
[2018-04-10 21:11] VITALS: BMI 36.7
[2018-04-10] MEDS: ASPIRIN 325 MG TAB PO SCH (21:16)
[2018-04-10] MEDS: INSULIN DETEMIR (LEVEMIR) 100 UNIT/ML SYR SQ SCH (21:16)
[2018-04-10] MEDS: GABAPENTIN 300 MG CAP PO SCH (21:16)
[2018-04-10] MEDS: PROPAFENONE 150 MG TAB PO SCH (21:16)
[2018-04-10] MEDS: HEPARIN SODIUM,PORCINE 5,000 UNIT/ML 1 ML VIAL SQ SCH (21:17)
[2018-04-10] MEDS: SODIUM CHLORIDE 0.9% 1,000 ML IV SCH (21:17)
[2018-04-10 21:22] LABS: Glucose,Whole Blood 133 mg/dL (75-99)
--- NOTE | 2018-04-10 22:40 | HP ---
HISTORY AND PHYSICAL DATE OF SERVICE: 04/10/2018 CHIEF COMPLAINTS: Pain and swelling of the left foot. HISTORY OF PRESENT ILLNESS: This 78-year-old gentleman with a past medical history of atrial fibrillation, history of diabetes, history GI bleed, hypertension, hyperlipidemia, history of pneumonia, history of past wound MRSA, osteomyelitis of the right leg and amputation, being followed by Dr. Gandara in the outpatient setting, was noted to have pain and swelling of the left leg for the last 2 to 3 days. The patient was started by his PCP on oral antibiotics, and IM Rocephin also was given. Because of lack of improvement, the patient was taken to [facility] and was admitted for further evaluation and treatment. There is no history of any fever, rigor or chills. No history of headache, loss of consciousness, seizures at this time. PAST MEDICAL HISTORY: 1. History of atrial fibrillation. 2. History of GI bleed. 3. Hypertension. 4. Hyperlipidemia. 5. History of musculoskeletal disorder. 6. History of sleep apnea. 7. History of previous MRSA and osteomyelitis. HOME MEDICATIONS: Home medications prior to admission include: 1. Humalog 60 units before meals t.i.d. 2. Lantus 60 units subcutaneously at bedtime. 3. Colace 100 mg p.o. daily. 4. Zestril 2.5 mg daily. 5. Glucagon Emergency Kit. 6. Neurontin 600 mg p.o. t.i.d. 7. Flomax 0.4 daily. 8. Cefdinir 300 mg daily. 9. Lipitor 20 mg p.o. daily. 10.Alphagan eyedrops 1 drop daily. 11.Aspirin 325 mg at bedtime. 12.Garlic 1 p.o. daily. 13.Lasix 40 mg p.o. daily. 14.Folic acid 1 mg daily. 15.Fish oil 1 gram daily. 16.Iron 320 mg p.o. daily. 17.Rythmol 225 mg p.o. b.i.d. 18.K-Tab ER 20 mEq p.o. daily. 19.Prilosec 20 mg at bedtime. 20.Percocet 10/325 one p.o. q.6 p.r.n. 21.Vitamin B complex 1 p.o. daily. 22.Travatan 1 drop right eye daily. 23.Apresoline 100 mg p.o. daily. ALLERGIES: 1. CEFTAROLINE. 2. BACTRIM. 3. PINEAPPLE. FAMILY HISTORY: History of diabetes and neuropathy in the family. SOCIAL HISTORY: Previous history of smoking. No current smoking. No history of alcohol intake. REVIEW OF SYSTEMS: ENT: Diminished hearing. Diminished vision. CARDIOVASCULAR SYSTEM: No angina, palpitations. RESPIRATORY SYSTEM: No cough, hemoptysis. GI: As mentioned earlier. : No dysuria or retention. NERVOUS SYSTEM: No numbness, weakness. ALLERGY/IMMUNOLOGY: No asthma, hayfever. MUSCULOSKELETAL: As mentioned earlier. HEMATOLOGY/ONCOLOGY: No history of anemia. ENDOCRINE: Diabetes mellitus. CONSTITUTIONAL: As mentioned earlier. DERMATOLOGY: Negative. RHEUMATOLOGY: Negative. PSYCHIATRY: As mentioned earlier. PHYSICAL EXAMINATION: Patient is alert, oriented x3. Pulse 58, blood pressure 130/72, respiration 20, temperature 97.6, pulse ox 97% on room air. HEENT: Conjunctivae normal. NECK: No jugular venous distention. CARDIOVASCULAR SYSTEM: S1, S2 muffled. RESPIRATORY SYSTEM: Breath sounds diminished at the bases. A few rhonchi. No crackles. ABDOMEN: Soft, non-tender. No mass palpable. Obese. LEGS: Status post right leg amputation. Otherwise, left leg has significant erythema, swelling and tenderness in the left foot present. Sensation diminished. NERVOUS SYSTEM: Higher functions as mentioned earlier. Moves all 4 limbs. No focal motor or sensory deficit. LYMPHATICS: No lymph node palpable in neck, axillae or groin. SKIN: As mentioned earlier. JOINTS: No active deforming arthropathy. LABS: WBC 11.9, hemoglobin 13. ASSESSMENT: 1. Acute left leg cellulitis with systemic inflammatory response syndrome. 2. History of right leg osteomyelitis and amputation. 3. Diabetes mellitus, type 2. 4. Atrial fibrillation. 5. Gastrointestinal bleeding. 6. Hypertension. 7. Hyperlipidemia. 8. History of degenerative joint disease. 9. History of pneumonia. 10.History of sleep apnea. 11.History of methicillin-resistant Staphylococcus aeruginosa. 12.History of right below-knee amputation. 13.Obesity with a body mass index of 36.6. 14.FULL CODE. RECOMMENDATIONS AND DISCUSSION: In this 78-year-old gentleman who presented with multiple complex medical issues, we will monitor the patient closely, continue the current medications. Will initiate broad- spectrum antibiotics, vancomycin, and consult Dr. Govea. Continue to monitor. Resume the home medications. Prognosis guarded because of multiple complex medical issues.. Further recommendations to follow. A copy of this dictation is being forwarded to Dr. Gandara, who is the primary physician. Will monitor blood sugars closely as well. See orders for further details. DVT prophylaxis. MMODL / IJN: [id number] /
[2018-04-11] MEDS: VANCOMYCIN 2,000 MG in SODIUM CHLORIDE 0.9% 500 ML 500 ML IVPB SCH ×2 (00:53→15:51)
[2018-04-11 05:05] LABS: Appearance,Urine Clear (Clear); Bilirubin,Urine Negative (Negative); Blood,Urine Negative (Negative); Color,Urine Light Yellow; Glucose,Urine (UA) Negative (Negative); Ketones,Urine Negative (Negative); Leukocyte Esterase,Urine Negative (Negative); Nitrite,Urine Negative (Negative); Protein,Urine Negative (Negative); Specific Gravity,Urine 1.006 (1.001-1.035); Urobilinogen,Urine <2.0 mg/dL (<2.0)
[2018-04-11 07:33] LABS: Glucose,Whole Blood 149 mg/dL (75-99)
[2018-04-11 07:35] LABS: Basophils # (A) 0.1 k/uL (0-0.2); Basophils % (A) 1 %; Eosinophils # (A) 0.4 k/uL (0-0.7); Eosinophils % (A) 4 %; HCT 39.1 % (39.0-53.0); HGB 12.8 gm/dL (13.0-17.5); Lymphocytes # (A) 1.7 k/uL (1.0-4.8); Lymphocytes % (A) 17 %; MCH 32.3 pg (25.0-35.0); MCHC 32.6 g/dL (31.0-37.0); MCV 98.9 fL (80.0-100.0); Mean Platelet Volume 8.7; Monocytes # (A) 0.7 k/uL (0-1.0); Monocytes % (A) 7 %; Neutrophils # (A) 6.8 k/uL (1.3-7.7); Neutrophils % (A) 69 %; Platelet Count 194 k/uL (150-450); RBC 3.95 m/uL (4.30-5.90); RDW 13.6 % (11.5-15.5); WBC 9.9 k/uL (3.8-10.6)
[2018-04-11 07:54] LABS: Anion Gap 7 mmol/L; Blood Urea Nitrogen 16 mg/dL (9-20); Calcium 8.6 mg/dL (8.4-10.2); Carbon Dioxide 28 mmol/L (22-30); Chloride 104 mmol/L (98-107); Glucose 149 mg/dL (74-99); Potassium 3.9 mmol/L (3.5-5.1); Sodium 139 mmol/L (137-145)
[2018-04-11] MEDS ORDERED: NON-FORMULARY DRUG (Fish Oil/Dha/Epa [Fish Oil 1,200 Mg Fish Oil] 1,000 MG) PO SCH (09:00)
[2018-04-11] MEDS ORDERED: NON-FORMULARY DRUG (Vitamin B Complex [Vitamin B Complex] 1 CAP) PO SCH (09:00)
[2018-04-11] MEDS: FUROSEMIDE 10 MG/ML 4 ML VIAL IV SCH (09:23)
[2018-04-11] MEDS: PANTOPRAZOLE 40 MG TABLET PO SCH (09:26)
[2018-04-11] MEDS: DOCUSATE 100 MG CAP PO SCH (09:26)
[2018-04-11] MEDS: BRIMONIDINE TARTRATE 0.2% DROPS 5 ML BTL RIGHT EYE SCH (09:26)
[2018-04-11] MEDS: ATORVASTATIN 20 MG TAB PO SCH (09:26)
[2018-04-11] MEDS: GABAPENTIN 300 MG CAP PO SCH ×3 (09:26→20:29)
[2018-04-11] MEDS: LATANOPROST 0.005% OPHTH DROPS 2.5 ML BTL RIGHT EYE SCH (09:27)
[2018-04-11] MEDS: POTASSIUM CHLORIDE ER 20 MEQ TAB.ER PO SCH (09:27)
[2018-04-11] MEDS: LISINOPRIL 2.5 MG TAB PO SCH (09:27)
[2018-04-11] MEDS: HEPARIN SODIUM,PORCINE 5,000 UNIT/ML 1 ML VIAL SQ SCH ×2 (09:27→20:17)
[2018-04-11] MEDS: PROPAFENONE 150 MG TAB PO SCH ×3 (09:37→20:18)
[2018-04-11] MEDS: TAMSULOSIN 0.4 MG CAP.ER.24H PO SCH (09:38)
[2018-04-11 12:19] LABS: Glucose,Whole Blood 196 mg/dL (75-99)
[2018-04-11] MEDS: FERROUS SULFATE 325 MG TAB PO SCH (12:28)
[2018-04-11] MEDS: FOLIC ACID 1 MG TAB PO SCH (12:28)
[2018-04-11 16:51] LABS: Glucose,Whole Blood 222 mg/dL (75-99)
--- NOTE | 2018-04-11 17:41 | PN ---
PROGRESS NOTE DATE OF SERVICE: 04/11/2018 This 78-year-old gentleman who was admitted with acute left leg cellulitis and SIRS, is being closely monitored. No chest pain. No palpitations. No fever. The patient also has history of right leg cellulitis and osteomyelitis also. PHYSICAL EXAM: Alert and oriented, pulse 72, blood pressure 160/82, respiration 14, temperature 98.1, pulse ox 98% on room air. HEENT: Conjunctivae normal. Oral mucosa moist. NECK: No jugular venous distention. No lymph node enlargement. CARDIOVASCULAR: S1, S2. RESPIRATORY: Diminished breath sounds at the bases. No rhonchi, no crackles. ABDOMEN: Soft, nontender. LEGS: Status post right below knee amputation. Left leg has significant swelling and tenderness, erythema of the right foot; minimally better compared to yesterday. NERVOUS SYSTEM: No focal deficits. LABS: WBC 9.9, hemoglobin 12.8, platelets 149. Hemoglobin A1c is not available. ASSESSMENT: 1. Acute left leg cellulitis with systemic inflammatory response syndrome, present on admission. 2. History of right leg osteomyelitis and as well as right below-knee amputation. 3. Diabetes mellitus type 2. 4. Atrial fibrillation, paroxysmal. 5. History of gastrointestinal bleed. 6. Hypertension. 7. History of hyperlipidemia. 8. History of degenerative joint disease. 9. History of pneumonia. 10.History of sleep apnea. 11.History of MRSA. 12.History of right below-knee amputation. 13.Obesity with body mass index of 36.6. 14.FULL CODE. RECOMMENDATIONS AND DISCUSSION: I recommend to continue current medications, continue to monitor and symptomatic treatment. Otherwise at this time I recommend continue with current medications. Continue with antibiotics. Infectious disease evaluation with Dr. Govea and will follow the cultures. Prognosis guarded. Further recommendations to follow. Will monitor blood sugars closely. Blood sugars appear to be under fair control currently. MMODL / IJN: [id number] /
[2018-04-11] MEDS: INSULIN DETEMIR (LEVEMIR) 100 UNIT/ML SYR SQ SCH (20:18)
[2018-04-11 20:25] LABS: Glucose,Whole Blood 251 mg/dL (75-99)
[2018-04-11] MEDS: ASPIRIN 325 MG TAB PO SCH (20:29)
[2018-04-11] MEDS: SODIUM CHLORIDE 0.9% 1,000 ML IV SCH (20:29)
--- NOTE | 2018-04-12 06:33 | CONS ---
CONSULTATION DATE OF SERVICE: 04/11/2018 REASON FOR CONSULTATION: Left lower extremity cellulitis. HISTORY OF PRESENT ILLNESS: The patient is a 78-year-old male with past medical history significant for left . The patient did have a history of recurrent left lower extremity cellulitis. The patient recently did develop left leg swelling and redness with no history of any trauma. The patient did have mild dull aching pain to the left leg area. Intensity about 2-3 out of 10 and no radiation. The swelling and redness has been mostly diffuse with no skin breakdown or any drainage. The patient has been evaluated in the outpatient setting by his primary care physician the patient being started on oral for 2 days. The patient was reevaluated in the office yesterday when he was noticed to have further worsening of his cellulitis. Hence, the patient has been sent to the ER for further evaluation of the same. The patient did have lower extremity Dopplers that were negative for DVT. The patient was afebrile on presentation. His white count was significantly elevated. The patient was started on vancomycin, pharmacy to dose and admitted to the hospital. Infectious disease was consulted for further recommendations of antibiotic therapy, because of his multiple antibiotic allergies. REVIEW OF SYSTEMS: Positive points have been mentioned in HPI. Review of systems has been negative. PAST MEDICAL HISTORY: Atrial fibrillation, diabetes mellitus, hyperlipidemia, hypertension, Charcot joint, cellulitis, PAD. PAST SURGICAL HISTORY: PTCA and stenting, right BKA, polypectomy, rotator cuff repair. SOCIAL HISTORY: Remote history of smoking. No drinking or drug use. FAMILY HISTORY: Mother with history of diabetes. Daughter with history of hypertension and thyroid disorder. ALLERGIES: TO . However, the patient tolerates Ceftin without any problem. MEDICATION: Medications include the patient is currently on Tylenol, Xanax, aspirin, Lipitor, Colace, iron sulfate, folic acid, Lasix, Neurontin, heparin, Levemir, Zestril, Narcan, Percocet, Protonix, Rythmol, vancomycin 2 g to 16 hours. PHYSICAL EXAMINATION: Blood pressure 155/80 with a pulse of 67, temperature 98.3. He is 95% on room air. General description is an elderly male lying in bed in no distress. No tachypnea or accessory muscles of respiration use. HEENT: Shows slight pallor. No scleral icterus. Oral mucous membranes dry. No pharyngeal erythema or thrush. Neck trachea central. No thyromegaly. Lungs unlabored breathing. Clear to auscultation anteriorly. No wheeze or crackles. Heart S1, S2. Regular rate and rhythm. ABDOMEN: Soft. No tenderness. No guarding or rigidity. Left leg is swollen and red, mildly warm to touch. No blister formation. No skin breakdown or any drainage. Neurological: Patient is awake, alert, oriented times three. Mood and affect normal. LABS: Hemoglobin is 12.8, white count 9.9, BUN of 16, creatinine 0.94. Blood culture so far pending. DIAGNOSTIC IMPRESSION AND PLAN: 1. Patient with acute left lower extremity cellulitis that has failed to respond to the outpatient therapy with concern for possible MRSA infection. 2. The patient does have multiple antibiotic allergies limiting the number of antibiotics that can be safely used. PLAN: 1. The patient has been advised to stay in the hospital 48 hours and to continue with IV vancomycin, pharmacy to dose while watching the vanco trough and kidney function closely. If the patient did show overall improvement in the next 24 to 48 hours, he may be transitioned to oral Amoxicillin twice a day for another week. 2. We will follow up on clinical condition and culture to further adjust medication if needed. Thank you for this consultation. We will follow this patient along with you. MMODL / IJN: [id number] /
[2018-04-12 06:57] LABS: Basophils # (A) 0.1 k/uL (0-0.2); Basophils % (A) 1 %; Eosinophils # (A) 0.4 k/uL (0-0.7); Eosinophils % (A) 5 %; HCT 39.4 % (39.0-53.0); Lymphocytes % (A) 23 %; MCH 31.9 pg (25.0-35.0); MCV 96.6 fL (80.0-100.0); Mean Platelet Volume 7.7; Monocytes # (A) 0.6 k/uL (0-1.0); Monocytes % (A) 7 %; Neutrophils # (A) 5.5 k/uL (1.3-7.7); Neutrophils % (A) 63 %; Platelet Count 244 k/uL (150-450); RBC 4.08 m/uL (4.30-5.90); RDW 13.3 % (11.5-15.5); WBC 8.7 k/uL (3.8-10.6)
[2018-04-12] MEDS: PROPAFENONE 150 MG TAB PO SCH ×3 (07:17→20:35)
[2018-04-12 07:18] LABS: Anion Gap 7 mmol/L; Blood Urea Nitrogen 14 mg/dL (9-20); Calcium 9.1 mg/dL (8.4-10.2); Carbon Dioxide 29 mmol/L (22-30); Chloride 103 mmol/L (98-107); Glucose 112 mg/dL (74-99); Potassium 3.9 mmol/L (3.5-5.1); Sodium 139 mmol/L (137-145)
[2018-04-12] MEDS: VANCOMYCIN 2,000 MG in SODIUM CHLORIDE 0.9% 500 ML 500 ML IVPB SCH (07:18)
[2018-04-12] MEDS: HEPARIN SODIUM,PORCINE 5,000 UNIT/ML 1 ML VIAL SQ SCH ×2 (07:23→20:35)
[2018-04-12 07:24] LABS: Glucose,Whole Blood 105 mg/dL (75-99)
[2018-04-12] MEDS: DOCUSATE 100 MG CAP PO SCH (07:27)
[2018-04-12] MEDS: BRIMONIDINE TARTRATE 0.2% DROPS 5 ML BTL RIGHT EYE SCH (07:27)
[2018-04-12] MEDS: ATORVASTATIN 20 MG TAB PO SCH (07:27)
[2018-04-12] MEDS: PANTOPRAZOLE 40 MG TABLET PO SCH (07:27)
[2018-04-12] MEDS: FUROSEMIDE 10 MG/ML 4 ML VIAL IV SCH (07:28)
[2018-04-12] MEDS: LISINOPRIL 2.5 MG TAB PO SCH (07:28)
[2018-04-12] MEDS: TAMSULOSIN 0.4 MG CAP.ER.24H PO SCH (07:28)
[2018-04-12] MEDS: POTASSIUM CHLORIDE ER 20 MEQ TAB.ER PO SCH (07:28)
[2018-04-12] MEDS: LATANOPROST 0.005% OPHTH DROPS 2.5 ML BTL RIGHT EYE SCH (07:28)
[2018-04-12] MEDS: GABAPENTIN 300 MG CAP PO SCH ×3 (07:28→20:36)
[2018-04-12] MEDS: FERROUS SULFATE 325 MG TAB PO SCH (11:36)
[2018-04-12] MEDS: FOLIC ACID 1 MG TAB PO SCH (11:36)
[2018-04-12 11:58] LABS: Glucose,Whole Blood 121 mg/dL (75-99)
[2018-04-12] MEDS ORDERED: VANCOMYCIN TROUGH DUE 1 EACH MISC MISCELLANE ONE (15:00)
[2018-04-12 17:18] LABS: Glucose,Whole Blood 156 mg/dL (75-99)
--- NOTE | 2018-04-12 18:06 | PN ---
PROGRESS NOTE DATE OF SERVICE: 04/12/2018 This 78-year-old gentleman who was admitted with acute left leg cellulitis and SIRS is on IV antibiotics. Dr. Rivera is following the patient. Blood cultures are negative so far. No chest pain. No palpitations. No fever. EXAM: Alert and oriented. Pulse 70, blood pressure is 163/84, respiration 18, temperature 97.4, pulse ox 97% on room air. HEENT: Conjunctivae normal. Oral mucosa moist. NECK: No jugular venous distention. No lymph node enlargement. CARDIOVASCULAR: S1, S2. RESPIRATORY: Diminished breath sounds at the bases. Scattered rhonchi, no crackles. ABDOMEN: Soft, nontender. LEGS: Left leg swelling and cellulitis present. NERVOUS SYSTEM: No focal deficits. LABS: WBC 8.2, hemoglobin 13, and glucose 121. ASSESSMENT: 1. Acute left leg cellulitis with systemic inflammatory response syndrome, present on admission. 2. History of right leg osteomyelitis as well as right below-knee amputation. 3. Diabetes type 2. 4. Atrial fibrillation, paroxysmal. 5. History of gastrointestinal bleed. 6. History of hypertension. 7. History hyperlipidemia. 8. History of degenerative joint disease. 9. History of pneumonia. 10.Obstructive sleep apnea. 11.History of MRSA. 12.History of right below-knee amputation. 13.Obesity, body mass index of 36.6. 14.FULL CODE. RECOMMENDATIONS AND DISCUSSION: In this 78-year-old gentleman who presented with multiple complex medical issues, we will monitor the patient closely, continue the current management and symptomatic treatment. I would recommend continue with current medications. Continue with the antibiotics. Otherwise, follow closely with Dr. Rivera. Further recommendations to follow. MMODL / IJN: [id number] /
[2018-04-12 20:20] LABS: Glucose,Whole Blood 221 mg/dL (75-99)
[2018-04-12] MEDS: ASPIRIN 325 MG TAB PO SCH (20:36)
[2018-04-12 21:29] VITALS: RESP 16
[2018-04-12] MEDS: INSULIN DETEMIR (LEVEMIR) 100 UNIT/ML SYR SQ SCH (21:47)
[2018-04-13] MEDS ORDERED: VANCOMYCIN 2,000 MG in SODIUM CHLORIDE 0.9% 500 ML 500 ML IVPB SCH (02:00)
[2018-04-13] MEDS: SODIUM CHLORIDE 0.9% 1,000 ML IV SCH (02:09)
--- NOTE | 2018-04-13 06:49 | PN ---
PROGRESS NOTE DATE OF SERVICE: 04/12/2018 REASON FOR FOLLOWUP: Left leg cellulitis. INTERVAL HISTORY: The patient is currently afebrile. The patient is breathing comfortably. Denies having any chest pain, shortness of breath, or cough. No abdominal pain, no diarrhea. The left leg swelling and redness is slightly currently with no drainage. PHYSICAL EXAMINATION: On examination, blood pressure 171/89 with a pulse of 72, temperature 97.6. He is 98% on room air. General description is an elderly male lying in bed in no distress. RESPIRATORY SYSTEM: Unlabored breathing, clear to auscultation anteriorly. HEART: S1, S2. Regular rate and rhythm. ABDOMEN: Soft, no tenderness. Left leg swelling and redness have slightly decreased. LABS: Hemoglobin 13, white count 8.7, BUN 14, creatinine 0.85. DIAGNOSTIC IMPRESSION AND PLAN: Patient with acute left lower extremity cellulitis. The patient did have diffuse swelling of on therapy. Currently showing improvement on vancomycin to continue for now. getting oral Zyvox for for a week tomorrow. Continue supportive care. MMODL / IJN: [id number] /
[2018-04-13 06:51] LABS: Glucose,Whole Blood 50 mg/dL (75-99)
[2018-04-13 07:08] LABS: Glucose,Whole Blood 60 mg/dL (75-99)
[2018-04-13 07:11] VITALS: BP 157/78; PULSE 64; TEMP 97.5
[2018-04-13] MEDS: PROPAFENONE 150 MG TAB PO SCH (07:12)
[2018-04-13] MEDS: FUROSEMIDE 10 MG/ML 4 ML VIAL IV SCH (07:14)
[2018-04-13] MEDS: TAMSULOSIN 0.4 MG CAP.ER.24H PO SCH (07:14)
[2018-04-13] MEDS: LISINOPRIL 2.5 MG TAB PO SCH (07:14)
[2018-04-13] MEDS: GABAPENTIN 300 MG CAP PO SCH (07:14)
[2018-04-13] MEDS: HEPARIN SODIUM,PORCINE 5,000 UNIT/ML 1 ML VIAL SQ SCH (07:14)
[2018-04-13] MEDS: LATANOPROST 0.005% OPHTH DROPS 2.5 ML BTL RIGHT EYE SCH (07:14)
[2018-04-13] MEDS: POTASSIUM CHLORIDE ER 20 MEQ TAB.ER PO SCH (07:14)
[2018-04-13] MEDS: BRIMONIDINE TARTRATE 0.2% DROPS 5 ML BTL RIGHT EYE SCH (07:15)
[2018-04-13] MEDS: DOCUSATE 100 MG CAP PO SCH (07:15)
[2018-04-13] MEDS: PANTOPRAZOLE 40 MG TABLET PO SCH (07:15)
[2018-04-13] MEDS: ATORVASTATIN 20 MG TAB PO SCH (07:15)
[2018-04-13 07:21] LABS: Glucose,Whole Blood 78 mg/dL (75-99)
[2018-04-13 08:01] LABS: Anion Gap 8 mmol/L; Blood Urea Nitrogen 13 mg/dL (9-20); Calcium 9.2 mg/dL (8.4-10.2); Carbon Dioxide 26 mmol/L (22-30); Chloride 106 mmol/L (98-107); Potassium 4.3 mmol/L (3.5-5.1); Sodium 140 mmol/L (137-145)
[2018-04-13 08:09] LABS: Basophils # (A) 0.1 k/uL (0-0.2); Basophils % (A) 1 %; Eosinophils # (A) 0.4 k/uL (0-0.7); Eosinophils % (A) 4 %; HCT 39.5 % (39.0-53.0); HGB 13.3 gm/dL (13.0-17.5); Lymphocytes # (A) 2.8 k/uL (1.0-4.8); Lymphocytes % (A) 27 %; MCH 32.9 pg (25.0-35.0); MCHC 33.6 g/dL (31.0-37.0); MCV 97.8 fL (80.0-100.0); Mean Platelet Volume 8.2; Monocytes # (A) 0.9 k/uL (0-1.0); Monocytes % (A) 9 %; Neutrophils # (A) 6.2 k/uL (1.3-7.7); Neutrophils % (A) 59 %; Platelet Count 281 k/uL (150-450); RBC 4.03 m/uL (4.30-5.90); RDW 13.3 % (11.5-15.5); WBC 10.6 k/uL (3.8-10.6)
[2018-04-13 08:22] LABS: Glucose 42 mg/dL (74-99)
[2018-04-13] MEDS: FERROUS SULFATE 325 MG TAB PO SCH (10:29)
[2018-04-13] MEDS: FOLIC ACID 1 MG TAB PO SCH (10:29)
[2018-04-13 12:28] LABS: Glucose,Whole Blood 103 mg/dL (75-99)
--- NOTE | 2018-04-13 15:24 | PN ---
PROGRESS NOTE DATE OF SERVICE: 04/13/2018 REASON FOR FOLLOWUP: Left leg cellulitis. INTERVAL HISTORY: The patient is currently afebrile. The patient denies having any chest pain. No shortness of breath. No cough. No abdominal pain. The patient is currently dressed up and is insisting on going home. PHYSICAL EXAMINATION: Blood pressure is 157/78 with a pulse of 84, temperature 97.5. he is 96% on room air. General description is an elderly male, up in the bed in no distress. RESPIRATORY SYSTEM: Unlabored breathing, clear to auscultation anteriorly. HEART: S1, S2. Regular rate and rhythm. ABDOMEN: Soft, no tenderness. Left leg swelling and redness has much improved. Did have recent outpatient wound on the lateral side with no slough tissue. No redness. LAB: B hemoglobin is 13.8/10.3, BUN of 13, creatinine 0.6. DIAGNOSTIC IMPRESSION AND PLAN: Patient with acute left leg cellulitis. Patient seemed to have shown clinical improvement on IV Vanco and failed to respond to outpatient setting on therapy. Plan at this time for Zyvox 1.6 mg twice a day for a week. Prescription to be sent to the pharmacy. Continue supportive care. Follow wound on the left leg with no evidence of any slough tissue. Local care with Aquacel Silver dressing and benefit from a mild compression dressing. Continue supportive care. MMODL / IJN: [id number] /
[2018-04-13] MEDS ORDERED: INSULIN DETEMIR (LEVEMIR) 100 UNIT/ML SYR SQ SCH (21:00)
--- NOTE | 2018-04-14 09:09 | DS ---
DISCHARGE SUMMARY DATE OF SERVICE: 04/13/2018 FINAL DIAGNOSES: 1. Acute left leg cellulitis with SARS, present on admission. 2. History of right leg osteomyelitis as well as right below-knee amputation previously. 3. Diabetes mellitus type 2. 4. Atrial fibrillation, paroxysmal. 5. History of gastrointestinal bleed. 6. Hypertension. 7. Hyperlipidemia. 8. Degenerative joint disease. 9. History of pneumonia. 10.Sleep apnea. 11.History of MRSA. 12.History of right below-knee amputation. 13.Obesity, body mass of 36.6. 14.FULL CODE. DISCHARGE DISPOSITION: The patient will be discharged in a stable condition with guarded prognosis. HISTORY OF PRESENT ILLNESS: This is a 78-year-old gentleman with a past medical history of multiple medical problems, admitted with cellulitis infection of the left foot. Patient put on antibiotics. Cultures are negative. Dr. Rivera saw the patient. Recommended the patient to be discharged. On exam, vital signs are stable. CARDIOVASCULAR: S1, S2. ABDOMEN: Soft. LEGS: Significant swelling and the redness which is improving. The patient will be discharge in a stable condition. The patient is extremely keen on going home at this time. So discharge diet is cardiac diet. FOLLOWUP: Follow up with Dr. Gandara in 2-3 days. Follow up with Infectious Disease as recommended. MEDICATIONS: 1. Aspirin 325 mg p.o. q.h.s. 2. Lipitor 20 mg p.o. daily. 3. Alphagan eyedrops 1 daily. 4. Colace 100 mg daily. 5. Iron 320 mg daily. 7. Folic acid 1 mg. 8. Neurontin 600 mg t.i.d. 9. Garlic 1 tablet p.o. daily. 10.Glucagon. 11.Apresoline 100 mg p.o. daily. 12.Lantus 60 units subcu q.h.s. 13.Humalog 60 t.i.d. 14.Zestril 2.5 mg daily. 15.Prilosec 20 mg q.h.s. 16.Oxycodone p.r.n. 17.Rythmol SR 225 mg p.o. b.i.d. 18.Flomax 0.4 daily. 19.Travatan 1 drop daily. 20.Vitamin B complex p.o. daily. 21.Tylenol p.r.n. 22.Lasix 40 mg p.o. daily. 23.Zyvox 600 mg p.o. b.i.d. for 1 week. 24.K-Tab ER 20 mg p.o. daily. Followup labs, CBC, BMP with Dr. Gandara. Once again the patient will be discharged in stable condition with guarded prognosis. Once again the patient is discharge in stable condition with guarded prognosis. MMODL / IJN: [id number] / [facility] CENTERChristy
--- NOTE | 2018-04-15 11:47 | CDI ---
Documentation Clarification Form Date: 04/15/18 From: Sola Nicholas Phone: If you have a question regarding this query, please contact Rocio Castillo at [phone] between 8am and 5pm. Admit Date: 04/10/2018 6:31:00 PM Patient Name: Sanjiv Bull Visit Number: [id number] Discharge Date: 04/13/2018 3:53:00 PM ATTENTION: The Clinical Documentation Specialists (CDI) and [facility] Coding Staff appreciate your assistance in clarifying documentation. Please respond to the clarification below the line at the bottom and electronically sign. The CDI & [facility] Coding staff will review the response and follow-up if needed. Please note: Queries are made part of the Legal Health Record. If you have any questions, please contact the author of this message via ITS. Dr. Harman Nichole The patient presented with cellulitis of the left leg and also has diabetes. History/Risk Factors: The patient was admitted for pain and swelling of the left foot. The patient also has diabetes, hypertension and had a previous right BKA. Clinical Indicators: Pain and swelling Vital Signs: T. 97.6, P. 58, R. 20, Bp 135/72 Treatment: IV Vancomycin In your professional opinion, can you please clarify if the cellulitis was? Associated with Diabetes Mellitus Not associated with Diabetes Mellitus Other, please specify Unable to determine Associated with Diabetes Mellitus MTDD
== END 2018-04-13 15:53 | disposition home or self-care (01) | DRG 638 ==
LOC: EC 14:56 → 4SSUR 18:31
PROVIDERS: ADMIT Hospitalist; ATTEND Hospitalist
DX: E11.628 Type 2 diabetes mellitus with other skin complications (principal); L03.116 Cellulitis of left lower limb; R65.10 Systemic inflammatory response syndrome (SIRS) of non-infectious origin without acute organ dysfunction; I48.0 Paroxysmal atrial fibrillation; E11.9 Type 2 diabetes mellitus without complications; E66.9 Obesity, unspecified; E78.5 Hyperlipidemia, unspecified; G25.81 Restless legs syndrome; G47.33 Obstructive sleep apnea (adult) (pediatric); H40.9 Unspecified glaucoma; H54.61 Unqualified visual loss, right eye, normal vision left eye; H91.90 Unspecified hearing loss, unspecified ear; I10 Essential (primary) hypertension; M19.90 Unspecified osteoarthritis, unspecified site; K57.90 Diverticulosis of intestine, part unspecified, without perforation or abscess without bleeding; Z68.36 Body mass index [BMI] 36.0-36.9, adult; Z79.4 Long term (current) use of insulin; Z79.82 Long term (current) use of aspirin; Z79.899 Other long term (current) drug therapy; Z86.14 Personal history of Methicillin resistant Staphylococcus aureus infection; Z87.01 Personal history of pneumonia (recurrent); Z87.891 Personal history of nicotine dependence; Z89.511 Acquired absence of right leg below knee; Z88.1 Allergy status to other antibiotic agents; Z88.2 Allergy status to sulfonamides; Z88.8 Allergy status to other drugs, medicaments and biological substances; Z91.018 Allergy to other foods; Z98.42 Cataract extraction status, left eye; Z82.49 Family history of ischemic heart disease and other diseases of the circulatory system; Z83.3 Family history of diabetes mellitus; Z83.49 Family history of other endocrine, nutritional and metabolic diseases
CPT/HCPCS: 36415; 80048; 80053; 81003; 83605; 85025; 85610; 85730; 86850; 86900; 86901; 87040; 96365; 96366; 99284

== ENCOUNTER 2019-10-01 01:28 | Inpatient (IN) | payer MEDICARE ==
[2019-10-01] MEDS ORDERED: DEXTROSE 50% SYRINGE 50 ML IVP STA (01:51)
[2019-10-01 01:53] LABS: Glucose,Whole Blood 77 mg/dL (75-99)
[2019-10-01 01:58] LABS: Glucose,Whole Blood 54 mg/dL (75-99)
[2019-10-01] MEDS ORDERED: HYDROmorphone 0.5 MG/0.5 ML SYRINGE IVP STA (02:00)
[2019-10-01] MEDS ORDERED: KETOROLAC 15 MG/ML 1 ML VIAL IVP STA (02:00)
[2019-10-01 02:03] LABS: Basophils # (A) 0.1 k/uL (0-0.2); Basophils % (A) 0 %; Eosinophils # (A) 0.7 k/uL (0-0.7); Eosinophils % (A) 4 %; HCT 41.9 % (39.0-53.0); HGB 13.7 gm/dL (13.0-17.5); Lymphocytes # (A) 3.7 k/uL (1.0-4.8); Lymphocytes % (A) 22 %; MCHC 32.8 g/dL (31.0-37.0); MCV 97.4 fL (80.0-100.0); Mean Platelet Volume 9.2; Monocytes # (A) 1.4 k/uL (0-1.0); Monocytes % (A) 8 %; Neutrophils # (A) 10.5 k/uL (1.3-7.7); Neutrophils % (A) 63 %; Platelet Count 201 k/uL (150-450); WBC 16.7 k/uL (3.8-10.6)
[2019-10-01 02:13] LABS: Glucose,Whole Blood 117 mg/dL (75-99)
[2019-10-01 02:14] LABS: Partial Thromboplastin Time 26.6 sec (22.0-30.0); Prothrombin Time 10.7 sec (9.0-12.0)
[2019-10-01 02:17] LABS: Potassium 3.7 mmol/L (3.5-5.1); Total Bilirubin 0.7 mg/dL (0.2-1.3)
[2019-10-01] MEDS ORDERED: HYDROmorphone 1 MG/ML 1 ML SYRINGE IVP STA (02:42)
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
[2019-10-01] MEDS ORDERED: MORPHINE SULFATE 4 MG/ML SYRINGE IVP STA (03:41)
[2019-10-01] MEDS ORDERED: fentaNYL (PF) 50 MCG/ML 2 ML AMP IVP STA (03:42)
[2019-10-01 04:20] LABS: Glucose,Whole Blood 77 mg/dL (75-99)
[2019-10-01 05:21] LABS: Glucose,Whole Blood 97 mg/dL (75-99)
[2019-10-01 06:14] LABS: Glucose,Whole Blood 83 mg/dL (75-99)
[2019-10-01] MEDS ORDERED: NALOXONE 0.4 MG/ML 1 ML VIAL IV PRN (07:41)
[2019-10-01] MEDS ORDERED: DEXTROSE 5%-0.45% NACL 1,000 ML IV ONE ×3 (07:44→21:18)
[2019-10-01 07:45] LABS: Glucose,Whole Blood 66 mg/dL (75-99)
[2019-10-01] MEDS: HYDROmorphone 0.5 MG/0.5 ML SYRINGE IVP PRN ×2 (08:28→11:25)
[2019-10-01 09:17] LABS: Glucose,Whole Blood 96 mg/dL (75-99)
[2019-10-01 11:27] LABS: Glucose,Whole Blood 98 mg/dL (75-99)
[2019-10-01] MEDS ORDERED: VANCOMYCIN IV PER PHARMACY 1 EACH MISC MISCELLANE PRN (12:04)
[2019-10-01] MEDS ORDERED: VANCOMYCIN 2,000 MG in SODIUM CHLORIDE 0.9% 500 ML 500 ML IVPB SCH ×2 (12:30→22:30)
[2019-10-01 13:10] LABS: Glucose,Whole Blood 82 mg/dL (75-99)
[2019-10-01] MEDS ORDERED: IV FLUID CONTINUATION 1,000 ML IV ONE (13:12)
[2019-10-01] MEDS ORDERED: LACTATED RINGERS 1,000 ML IV ONE ×2 (13:37→18:20)
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
[2019-10-01] MEDS ORDERED: MIDAZOLAM 2 MG/2 ML VIAL IV ONE (14:04)
[2019-10-01] MEDS ORDERED: PHENYLEPHRINE-0.9% NACL SYG 1 MG/10 ML SYRINGE ONE (14:14)
[2019-10-01] MEDS ORDERED: PROPOFOL 10 MG/ML 20 ML VIAL IV ONE (14:14)
[2019-10-01] MEDS ORDERED: NEOSTIGMINE 1 MG/ML 10 ML VIAL ONE (14:14)
[2019-10-01] MEDS ORDERED: ePHEDrine SULFATE/0.9% NACL/PF 50 MG/5 ML SYRINGE IV ONE (14:14)
[2019-10-01] MEDS ORDERED: ROCURONIUM 10 MG/ML (5 ML VIAL) IV ONE (14:14)
[2019-10-01] MEDS ORDERED: SUCCINYLCHOLINE CHLORIDE 100 MG/5 ML SYR IV ONE (14:14)
[2019-10-01] MEDS ORDERED: ROPIVACAINE 5 MG/ML 30 ML VIAL ONE (14:14)
[2019-10-01] MEDS ORDERED: GLYCOPYRROLATE 0.2 MG/ML 2 ML VIAL ONE (14:14)
[2019-10-01 16:33] LABS: Glucose,Whole Blood 86 mg/dL (75-99)
[2019-10-01 19:45] LABS: Glucose,Whole Blood 34 mg/dL (75-99)
[2019-10-01 19:45] LABS: Glucose,Whole Blood 33 mg/dL (75-99)
[2019-10-01 20:02] LABS: Glucose,Whole Blood 100 mg/dL (75-99)
[2019-10-01] MEDS ORDERED: LIDOCAINE 2%-EPI 1:100,000 20 ML VIAL SQ ONE (20:32)
[2019-10-01 21:02] LABS: Glucose,Whole Blood 55 mg/dL (75-99)
[2019-10-01 21:41] LABS: Glucose,Whole Blood 91 mg/dL (75-99)
[2019-10-01] MEDS ORDERED: MORPHINE SULFATE 4 MG/ML SYRINGE IV PRN (22:03)
[2019-10-01] MEDS ORDERED: ONDANSETRON 4 MG/2 ML VIAL IVP PRN (22:03)
[2019-10-01] MEDS ORDERED: oxyCODONE ER 20 MG TAB.ER.12H PO PRN (22:11)
[2019-10-02] MEDS: hydrALAZINE HCL 50 MG TAB PO SCH ×2 (00:49→07:55)
[2019-10-02] MEDS ORDERED: VANCOMYCIN 1,000 MG in SODIUM CHLORIDE 0.9% 250 ML IVPB ONE (02:00)
[2019-10-02] MEDS: PROPAFENONE PO SCH ×2 (03:19→07:51)
[2019-10-02] MEDS: HYDROmorphone 0.5 MG/0.5 ML SYRINGE IVP PRN (03:22)
[2019-10-02 05:03] LABS: Color,Urine Yellow
[2019-10-02 05:04] LABS: Appearance,Urine Clear (Clear); Bilirubin,Urine Negative (Negative); Blood,Urine Negative (Negative); Glucose,Urine (UA) Negative (Negative); Ketones,Urine Negative (Negative); Leukocyte Esterase,Urine Negative (Negative); Nitrite,Urine Negative (Negative); Protein,Urine Negative (Negative); Specific Gravity,Urine 1.005 (1.001-1.035)
--- NOTE | 2019-10-02 05:53 | FL ---
EXAMINATION TYPE: FL fluoroscopy <1hr, XR wrist limited LT DATE OF EXAM: 10/01/2019 CLINICAL HISTORY: Left wrist fracture. TECHNIQUE: Fluoroscopy. Limited intraoperative views left wrist. COMPARISON: Outside left wrist x-ray September 30, 2019. FINDINGS: Fluoroscopic guidance was provided during open reduction internal fixation procedure perfo rmed by Dr. Gaffney. A total of 85 seconds of fluoroscopic time was utilized during the procedure and four spot intraoperative images are acquired. Intraoperative images obtained show placement of the liver fixating plate and 2 external K wires thro ugh severely comminuted displaced fracture distal radial metaphysis. Improved alignment is seen on in traoperative images obtained after reduction and fixation. IMPRESSION: As Above.
[2019-10-02 07:26] LABS: Glucose,Whole Blood 104 mg/dL (75-99)
[2019-10-02] MEDS: INSULIN ASPART (NovoLOG) 100 UNIT/ML VIAL SQ SCH ×4 (07:27→22:20)
--- NOTE | 2019-10-02 11:37 | P.PN ---
Subjective Progress Note Date: 10/02/19 Seen and examined in the bedside. Interval events discussed with RN. The patient states that the pain is well-controlled. Denies nausea, vomiting or abdominal pain. No chest pain or shortness of breath. He denies any issues or concerns. Objective - Vital Signs Vital signs: Vital Signs Temp 98.8 F 10/02/19 07:00 Pulse 90 10/02/19 07:00 Resp 18 10/02/19 07:00 BP 121/64 10/02/19 07:00 Pulse Ox 93 L 10/02/19 07:00 Intake & Output 10/01/19 10/02/19 10/02/19 18:59 06:59 18:59 Intake Total 2200 100 Output Total 250 400 Balance 2200 -150 -400 Weight 122.47 kg Intake: IV 2200 100 Output: Urine 200 400 Estimated Blood Loss 50 - Exam Gen.: Lying supine in bed; initially resting comfortably with eyes closed upon entering but awakens easily. Psychiatric: Interacts and answers questions appropriately. Pulmonary: Nonlabored respiratory effort. No use of accessory muscles. Musculoskeletal: The splint is in place and appears well-fitting. Mild, appropriate digital edema. Improved active ROM with digital flexion, extension and abduction. Minimal pain with mid range passive flexion and extension of the thumb and fingers. Light touch sensation is subjectively at baseline. - Labs CBC & Chem 7: 10/01/19 01:55 10/01/19 01:55 Labs: Abnormal Lab Results - Last 24 Hours (Table) 10/01/19 10/01/19 10/01/19 Range/Units 19:40 19:43 19:58 POC Glucose (mg/dL) 34 L 33 L 100 H (75-99) mg/dL 10/01/19 10/02/19 Range/Units 21:00 07:13 POC Glucose (mg/dL) 55 L 104 H (75-99) mg/dL Assessment and Plan Assessment: 1. Postoperative day #1 status post open reduction and internal fixation of comminuted, displaced intra-articular left distal radius fracture with associated ulnar styloid base fracture status post fall on 09/30/19 2. 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 Chronic kidney disease, stage III 4. Chronic back pain with chronic opioid use 5. Morbid obesity Plan: I reviewed the clinical and intraoperative findings with the patient. His pain is currently well controlled on oral medication. Recommend discharge home and outpatient follow-up. Instructed to limit use of the hand only. Light activities of daily living. Continue PRN pain management with Percocet 10 (has at home) one PO q4H PRN pain. Continue ice and elevation. Follow up outpatient in 10 days.
--- NOTE | 2019-10-02 11:58 | P.DS ---
Providers Date of admission: 10/01/19 07:41 Expected date of discharge: 10/02/19 Attending physician: Keny Gaffney DO Consults: 10/01/19 07:30 Consult Physician Urgent Consulting Provider: Duncan Spears Reason/Comments: Distal radius fracture Do you want consulting provider notified?: Already Contacted 10/02/19 11:42 Consult Physician Urgent Consulting Provider: Harman Nichole Consult Reason/Comments: Severe hypoglycemia Do you want consulting provider notified?: Yes Primary care physician: Rosemary Gandara - Discharge Diagnosis(es) (1) Closed fracture of left distal radius and ulna Current Visit: Yes Status: Acute (2) Distal radial fracture Current Visit: Yes Status: Acute (3) Hypoglycemia Current Visit: Yes Status: Acute (4) Morbid obesity Current Visit: Yes Status: Acute Hospital Course: The patient presented to the emergency department with uncontrolled pain secondary to a displaced, comminuted left distal radius fracture sustained in a mechanical fall earlier the day before. He was evaluated in the emergency department and prompt surgical intervention was recommended. He was taken later that day for surgical stabilization of the fracture. Please see operative note for full details of the procedure. He was kept for observation and pain management. Postoperatively, he was noted to have significant hypoglycemia and the internal medicine team was consulted. Assessment: 1. Status post open reduction and internal fixation of comminuted, displaced intra-articular left distal radius fracture with associated ulnar styloid base fracture status post fall on 09/30/19 2. Acute hypoglycemia 3. 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 Chronic kidney disease, stage III 5. 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 Morbid obesity Procedures: Open reduction and internal fixation of comminuted left intra-articular distal radius fracture on 10/01/19 Patient Condition at Discharge: Stable Plan - Discharge Summary Discharge Rx Participant: Yes New Discharge Prescriptions: New Doxycycline [Vibramycin] 100 mg PO BID 7 Days #14 capsule No Action Propafenone Sr [Rythmol Sr] 450 mg PO DAILY Omeprazole [PriLOSEC] 20 mg PO HS Garlic 1 tab PO DAILY Folic Acid 1 mg PO DAILY Fish Oil/Dha/Epa [Fish Oil 1,200 mg Fish Oil] 1,000 mg PO DAILY Aspirin 325 mg PO HS Travoprost [Travatan Z 0.004%] 1 drop RIGHT EYE DAILY oxyCODONE HCL/ACETAMINOPHEN [Percocet 10-325 mg] 1 tab PO Q6HR PRN PRN Reason: Pain Ferrous Sulfate [Iron (65 MG Elemental)] 325 mg PO DAILY Vitamin B Complex 1 cap PO DAILY Potassium Chloride [K-Tab ER] 20 meq PO DAILY #30 tablet.er Insulin Glargine [Lantus] 60 - 68 unit SQ HS Docusate [Colace] 100 mg PO DAILY PRN PRN Reason: Constipation lisinopriL [Zestril] 2.5 mg PO DAILY Glucagon Emergency Kit 1 mg SQ DIRECTED PRN PRN Reason: HYPOGLYCEMIC Gabapentin [Neurontin] 600 mg PO TID Tamsulosin HCl [Flomax] 0.4 mg PO DAILY Atorvastatin [Lipitor] 20 mg PO DAILY hydrALAZINE HCL [Apresoline] 100 mg PO DAILY Ascorbic Acid [Vitamin C] 500 mg PO DAILY Furosemide [Lasix] 80 mg PO BID Insulin Aspart [NovoLOG Flexpen] 12 units SQ TID-W/MEALS Unknown Sleep Aid (Unknown Strength) 1 tab PO HS PRN PRN Reason: Insomnia Brimonidine Tartrate [Alphagan P 0.2% Ophth Soln] 1 drops RIGHT EYE BID Discharge Medication List Aspirin 325 mg PO HS 06/17/13 [History] Fish Oil/Dha/Epa [Fish Oil 1,200 mg Fish Oil] 1,000 mg PO DAILY 06/17/13 [History] Folic Acid 1 mg PO DAILY 06/17/13 [History] Garlic 1 tab PO DAILY 06/17/13 [History] Omeprazole [PriLOSEC] 20 mg PO HS 06/17/13 [History] Propafenone Sr [Rythmol Sr] 450 mg PO DAILY 06/17/13 [History] Travoprost [Travatan Z 0.004%] 1 drop RIGHT EYE DAILY 08/16/13 [History] Ferrous Sulfate [Iron (65 MG Elemental)] 325 mg PO DAILY 05/19/17 [History] Vitamin B Complex 1 cap PO DAILY 05/19/17 [History] oxyCODONE HCL/ACETAMINOPHEN [Percocet 10-325 mg] 1 tab PO Q6HR PRN 05/19/17 [History] Potassium Chloride [K-Tab ER] 20 meq PO DAILY #30 tablet.er 05/23/17 [Rx] Atorvastatin [Lipitor] 20 mg PO DAILY 04/10/18 [History] Docusate [Colace] 100 mg PO DAILY PRN 04/10/18 [History] Gabapentin [Neurontin] 600 mg PO TID 04/10/18 [History] Glucagon Emergency Kit 1 mg SQ DIRECTED PRN 04/10/18 [History] Insulin Glargine [Lantus] 60 - 68 unit SQ HS 04/10/18 [History] Tamsulosin HCl [Flomax] 0.4 mg PO DAILY 04/10/18 [History] hydrALAZINE HCL [Apresoline] 100 mg PO DAILY 04/10/18 [History] lisinopriL [Zestril] 2.5 mg PO DAILY 04/10/18 [History] Ascorbic Acid [Vitamin C] 500 mg PO DAILY 10/01/19 [History] Brimonidine Tartrate [Alphagan P 0.2% Ophth Soln] 1 drops RIGHT EYE BID 10/01/19 [History] Furosemide [Lasix] 80 mg PO BID 10/01/19 [History] Insulin Aspart [NovoLOG Flexpen] 12 units SQ TID-W/MEALS 10/01/19 [History] Unknown Sleep Aid (Unknown Strength) 1 tab PO HS PRN 10/01/19 [History] Doxycycline [Vibramycin] 100 mg PO BID 7 Days #14 capsule 10/02/19 [Rx] Follow up Appointment(s)/Referral(s): Rosemary Gandara DO [Primary Care Provider] - 1-2 days Keny Gaffney DO [Medical Doctor] - 10 Days Activity/Diet/Wound Care/Special Instructions: Orthopedic Postoperative Discharge Instructions Ice & elevate the left hand & wrist. Use percocet (has at home) or [id number] pain medication as directed. May take percocet 10 mg tablets up to 1 every 4 hours as needed for pain. An antibiotic has been prescribed to prevent infection after surgery. The hand should ONLY be used for light assistanct with necessary daily activities (eating/dressing/etc). No strenuous/forceful use of the hand. No lifting/gripping/pushing/pulling. Do not remove the splint/dressing. Keep it dry - cover with a plastic bag to shower. Perform finger & thumb [id number] exercises several times daily. No squeeze balls. Ok to use the other hand to move the fingers if necessary. Call as soon as possible to schedule a follow-up appointment with Dr. Gaffney to be seen in approximately 10-14 days. Discharge Disposition: HOME SELF-CARE
[2019-10-02 12:05] LABS: Glucose,Whole Blood 160 mg/dL (75-99)
--- NOTE | 2019-10-02 12:14 | P.ANPRN ---
Procedure Note - Anesthesia - Nerve Block Performed Left Supraclavicular Single Time Out Performed: Yes Date of Procedure: 10/01/19 Procedure Start Time: 14:01 Procedure Stop Time: 14:06 Location of Patient: PreOp Indication: Acute Post-Operative Pain, Requested by Surgeon Sedation Type: Sedate with meaningful contact maintained Preparation: Sterile Prep, Sterile Dressing Position: Supine Catheter: Indwelling Needle Types: Pajunk Needle Gauge: 21 Ultrasound used to visualize needle placement: Yes Ultrasound used to observe medication spread: Yes Blood Aspirated: No Pain Paresthesia on Injection Noted: No Resistance on Injection: Normal Image Stored and Saved: Yes Events: Uneventful and Well Tolerated (ropi .5% 20cc)
[2019-10-02] MEDS ORDERED: VANCOMYCIN 2,000 MG in SODIUM CHLORIDE 0.9% 500 ML 500 ML IVPB SCH ×4 (13:00)
[2019-10-02] MEDS: oxyCODONE-APAP 10-325MG 1 EACH TAB PO PRN ×2 (16:37→22:18)
[2019-10-02] MEDS ORDERED: DOCUSATE 100 MG CAP PO PRN (17:08)
[2019-10-02] MEDS ORDERED: LORazepam 0.5 MG TAB PO PRN (17:11)
[2019-10-02] MEDS ORDERED: IPRATROPIUM-ALBUTEROL 3 ML NEB INHALATION PRN (17:11)
--- NOTE | 2019-10-02 17:13 | XR ---
EXAMINATION TYPE: XR chest 1V DATE OF EXAM: 10/02/2019 COMPARISON: 05/20/2017 HISTORY: Short of breath Cough TECHNIQUE: FINDINGS: There is no heart failure nor confluent pneumonic infiltrate. There is some coarsening of i nterstitial markings. There is no pleural effusion. There are no hilar masses. IMPRESSION: No acute lung disease. Mild pulmonary fibrotic changes. Overall no adverse change compare d to old exam.
[2019-10-02] MEDS: SODIUM CHLORIDE 0.9% 1,000 ML IV SCH (17:29)
[2019-10-02 17:35] LABS: Glucose,Whole Blood 270 mg/dL (75-99)
[2019-10-02] MEDS: FUROSEMIDE 40 MG TAB PO SCH (17:53)
--- NOTE | 2019-10-02 18:26 | CT ---
EXAMINATION TYPE: CT brain wo con DATE OF EXAM: 10/02/2019 COMPARISON: None HISTORY: tremors CT DLP: 1099.4 mGycm Automated exposure control for dose reduction was used. There is cerebral cortical atrophy. There is no mass effect nor midline shift. There is no sign of in tracranial hemorrhage. Skull base is intact. There is some mild white matter hypodensity right pariet al lobe. IMPRESSION: Cerebral atrophy. There is some chronic small vessel ischemia right parietal lobe. No hemorrhage.
--- NOTE | 2019-10-02 19:40 | CONS ---
CONSULTATION DATE OF SERVICE: 10/02/2019 REASON FOR CONSULTATION: Change in mental status also severe hypoglycemia requested by Dr. Gaffney. HISTORY OF PRESENT ILLNESS: This 79-year-old gentleman with a past medical history of multiple medical problems including atrial fibrillation, diabetes, history of iron deficiency, hypertension, history of DJD, history of pneumonia, being followed by Dr. Gandara in the outpatient setting, had a fall and as well as wrist fracture. The patient underwent ORIF of the comminuted displaced intra-articular left distal radius fracture. The blood sugar was found to be 30 at night and throughout night the patient is to be given 5% dextrosedrip. The patient is receiving Lantus at 60-68 units at night with insulin in between meals at home. Currently the patient is complaining of some shortness of breath, chest pains, and tired and weak and the patient was extremely tremulous also. There is no history of fever, rigors. No headache, loss of consciousness, seizures. PAST MEDICAL HISTORY: History of atrial fibrillation, diabetes, hypertension, hyperlipidemia, history of DJD, history of cardiac catheterization. MEDICATIONS: Medications prior to admission include home medications are: 1. Travatan 1 drop right eye daily. 2. Lantus 60 units subcu q.h.s. 3. Alphagan eye drops. 4. Glucagon p.r.n. 5. NovoLog. 6. Vitamin C. 7. Vitamin B complex. 8. Flomax 0.4 daily. 9. Rythmol 450 daily. 10.Oxycodone. 11.Zestril 2.5 daily. 12.Prilosec 20 mg q.h.s. 13.Apresoline 100 mg p.o. daily. 14.Garlic 1 tablet. 15.Neurontin 600 mg t.i.d. 16.Lasix 80 mg p.o. b.i.d. 17.Folic acid. 18.Iron sulfate. 19.Colace. 20.Lipitor. 21.Aspirin. 22.Vibramycin. ALLERGIES: BACTRIM AND PINEAPPLE. FAMILY HISTORY: History of diabetes, peripheral neuropathy in the family. SOCIAL HISTORY: Previous history of smoking. No history of current smoking or alcohol intake. REVIEW OF SYSTEMS: ENT: Diminished hearing, diminished vision. CARDIOVASCULAR: No angina or palpitations. RESPIRATION: No cough. GI mentioned earlier. no dysuria. NERVOUS SYSTEM: As mentioned earlier. ALLERGY/IMMUNOLOGY: No asthma or hayfever. MUSCULOSKELETAL as mentioned earlier. HEMATOLOGY/ONCOLOGY: No history of anemia. ENDOCRINE: Diabetes. CONSTITUTIONAL: As mentioned earlier. DERMATOLOGY: Negative. RHEUMATOLOGY: Negative. PSYCHIATRY: As mentioned earlier. PHYSICAL EXAMINATION: Alert and oriented x2. Pulse 90. Blood pressure 124/60, respiration 18, temperature 98.8, pulse ox 98% on 2 L. HEENT: Oral mucosa moist. NECK is no jugular venous distention. No carotid bruit. No lymph node enlargement. CARDIOVASCULAR: S1, S2 muffled. RESPIRATORY: Breath sounds diminished in the bases. No crackles. ABDOMEN: Soft, obese, nontender. No mass palpable. LEGS status post right below-knee amputation NERVOUS SYSTEM: Higher functions as mentioned earlier. LYMPHATICS: No lymph nodes palpable in the neck, axillae or groin. SKIN: No ulcer, no rash and no bleeding. JOINTS: No active deforming arthropathy. Examination of the left hand status post surgery. LAB: Investigations: UA unremarkable. WBC 16.7, sodium 136, glucose 35, creatinine is 1.56. ASSESSMENT: 1. Distal comminuted displaced intra-articular left distal radius fracture status post ORIF. 2. Change in mental status acute metabolic encephalopathy. 3. Syncope for evaluation. 4. Chest pain for evaluation, rule out coronary artery disease. 5. Severe hypoglycemia. 6. Fall for evaluation. 7. Increased creatinine with mild acute renal failure. 8. Hyponatremia. 9. Increased WBC possibly reactive in nature. 10.History of atrial fibrillation, chronic. 11.Diabetes mellitus type 2. 12.Hyperlipidemia. 13.Hypertension. 14.History of degenerative joint disease. 15.History of pneumonia. 16.History of sleep apnea. 17.Diabetic peripheral neuropathy. 18.History of peripheral vascular disease. 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 20.Degenerative joint disease. 21.Restless legs syndrome. 22.Diffuse tremors. 23.Remote history of nicotine dependence. 24.Obesity with body mass of 38.7. RECOMMENDATIONS AND DISCUSSION: In this 79-year-old gentleman who presented with multiple medical issues, at this time I recommend to recommend hold all the insulin and Levemir 30 units subcu q.h.s. if sugars more than 250. Otherwise, monitor blood sugars closely. I would also recommend baseline labs and as well as EKG and chest x-ray for the chest pain. I would also recommend a course of troponin evaluation also. Otherwise remote telemetry. I would also recommend orthostatic vitals. IV fluids for renal failure. Continue the rest of medications. Avoid nephrotoxic medications. Prognosis guarded because of multiple complex medical issues. Further recommendations to follow. A copy of dictation being forwarded to Dr. Gandara, who is the primary physician. Thank you, Dr. Gaffney for letting us participate in the care of this gentleman. MMODL / IJN: [id number] / MTDD
[2019-10-02] MEDS ORDERED: HYDROmorphone 0.5 MG/0.5 ML SYRINGE IVP PRN (19:48)
[2019-10-02] MEDS: IPRATROPIUM-ALBUTEROL 3 ML NEB INHALATION SCH (20:11)
[2019-10-02 20:53] LABS: Glucose,Whole Blood 181 mg/dL (75-99)
[2019-10-02] MEDS: INSULIN DETEMIR (LEVEMIR) 100 UNIT/ML SYR SQ SCH (22:09)
[2019-10-02] MEDS: ASPIRIN 325 MG TAB PO SCH (22:19)
[2019-10-02] MEDS: BRIMONIDINE TARTRATE 0.2% DROPS 5 ML BTL RIGHT EYE SCH (22:19)
[2019-10-02] MEDS: GABAPENTIN 300 MG CAP PO SCH (22:19)
[2019-10-02] MEDS: HEPARIN SODIUM,PORCINE 5,000 UNIT/ML 1 ML VIAL SQ SCH (22:19)
[2019-10-02] MEDS: LATANOPROST 0.005% OPHTH DROPS 2.5 ML BTL RIGHT EYE SCH (22:19)
[2019-10-02] MEDS: PANTOPRAZOLE 40 MG TABLET PO SCH (22:20)
[2019-10-03 07:23] LABS: Basophils % (A) 0 %; Eosinophils # (A) 0.1 k/uL (0-0.7); Eosinophils % (A) 1 %; HGB 11.4 gm/dL (13.0-17.5); Lymphocytes # (A) 1.3 k/uL (1.0-4.8); Lymphocytes % (A) 12 %; MCH 32.1 pg (25.0-35.0); MCHC 32.6 g/dL (31.0-37.0); MCV 98.6 fL (80.0-100.0); Mean Platelet Volume 9.3; Monocytes % (A) 9 %; Neutrophils # (A) 8.4 k/uL (1.3-7.7); Neutrophils % (A) 76 %; Platelet Count 138 k/uL (150-450); RBC 3.55 m/uL (4.30-5.90)
[2019-10-03 07:25] LABS: Glucose,Whole Blood 160 mg/dL (75-99)
[2019-10-03 07:34] LABS: African American GFR (CKD) >90 (>60 ml/min/1.73 sqM); Anion Gap 6 mmol/L; Blood Urea Nitrogen 15 mg/dL (9-20); Carbon Dioxide 24 mmol/L (22-30); Chloride 106 mmol/L (98-107); Glucose 166 mg/dL (74-99); Non-African American GFR(CKD) 83 (>60 ml/min/1.73 sqM); Potassium 3.4 mmol/L (3.5-5.1); Sodium 136 mmol/L (137-145)
[2019-10-03] MEDS: HEPARIN SODIUM,PORCINE 5,000 UNIT/ML 1 ML VIAL SQ SCH ×2 (08:23→21:41)
[2019-10-03] MEDS: INSULIN ASPART (NovoLOG) 100 UNIT/ML VIAL SQ SCH ×4 (08:23→21:40)
[2019-10-03] MEDS: ATORVASTATIN 20 MG TAB PO SCH (08:24)
[2019-10-03] MEDS: FUROSEMIDE 40 MG TAB PO SCH ×2 (08:24→17:05)
[2019-10-03] MEDS: GABAPENTIN 300 MG CAP PO SCH ×3 (08:24→21:40)
[2019-10-03] MEDS: ASCORBIC ACID 500 MG TAB PO SCH (08:24)
[2019-10-03] MEDS: hydrALAZINE HCL 50 MG TAB PO SCH (08:24)
[2019-10-03] MEDS: oxyCODONE-APAP 10-325MG 1 EACH TAB PO PRN ×2 (08:25→14:01)
[2019-10-03] MEDS: MULTIVITAMINS, THERA 1 EACH TAB PO SCH (08:25)
[2019-10-03] MEDS: TAMSULOSIN 0.4 MG CAP.ER.24H PO SCH (08:25)
[2019-10-03] MEDS: BRIMONIDINE TARTRATE 0.2% DROPS 5 ML BTL RIGHT EYE SCH ×2 (08:33→21:39)
[2019-10-03] MEDS: THIAMINE 100 MG TAB PO SCH (08:36)
[2019-10-03] MEDS: SODIUM CHLORIDE 0.9% 1,000 ML IV SCH ×2 (08:37→10:47)
[2019-10-03] MEDS: IPRATROPIUM-ALBUTEROL 3 ML NEB INHALATION SCH ×3 (08:59→20:10)
[2019-10-03] MEDS ORDERED: NON FORMULARY DRUG (Vitamin B Complex [Vitamin B Complex] 1 CAP) PO SCH (09:00)
[2019-10-03] MEDS ORDERED: [UNRECOGNIZED DRUG - OTHER] PO SCH (09:00)
[2019-10-03] MEDS ORDERED: FISH OIL PO SCH (09:00)
[2019-10-03] MEDS: PROPAFENONE PO SCH (09:13)
[2019-10-03] MEDS: FOLIC ACID 1 MG TAB PO SCH (10:49)
[2019-10-03 11:27] LABS: Glucose,Whole Blood 226 mg/dL (75-99)
[2019-10-03] MEDS: 0.9% NACL WITH KCL 40 MEQ/L 1,000 ML IV SCH (13:06)
--- NOTE | 2019-10-03 13:42 | P.PN ---
Subjective Progress Note Date: 10/03/19 Principal diagnosis: Status post ORIF left distal radius fracture Patient is a 79-year-old male seen at bedside this morning. He is postop day #2 from ORIF of left distal radius fracture per Dr. Gaffney. He was discharged yesterday however internal medicine felt best that he remain inpatient due to his fluctuating and low blood glucose. He has no new complaints today. He denies numbness or tingling. Objective - Vital Signs Vital signs: Vital Signs Temp 98.0 F 10/03/19 08:14 Pulse 65 10/03/19 08:14 Resp 17 10/03/19 08:14 BP 152/71 10/03/19 08:14 Pulse Ox 97 10/03/19 08:14 Intake & Output 10/02/19 10/03/19 10/03/19 18:59 06:59 18:59 Output Total 400 1950 Balance -400 -1950 Output: Urine 400 1950 Other: Voiding Method Indwelling Catheter # Voids 400 - Exam Inspection of the left upper extremity shows a well fitting splint in place. There is no evidence of active bleeding or drainage. All digits are visualized. Active motor is intact in all digits. Sensation to touch is intact in all digits. There is less than 2 second capillary refill present in all digits. There are no signs of skin breakdown or wounds at the proximal or distal portions of the splint. - Constitutional General appearance: Present: no acute distress - Labs CBC & Chem 7: 10/03/19 06:34 10/03/19 06:34 Labs: Abnormal Lab Results - Last 24 Hours (Table) 10/02/19 10/02/19 10/03/19 Range/Units 17:34 20:52 06:34 WBC 11.0 H (3.8-10.6) k/uL RBC 3.55 L (4.30-5.90) m/uL Hgb 11.4 L (13.0-17.5) gm/dL Hct 35.0 L (39.0-53.0) % Plt Count 138 L (150-450) k/uL Neutrophils # 8.4 H (1.3-7.7) k/uL Sodium (137-145) mmol/L Potassium (3.5-5.1) mmol/L Glucose (74-99) mg/dL POC Glucose (mg/dL) 270 H 181 H (75-99) mg/dL Calcium (8.4-10.2) mg/dL 10/03/19 10/03/19 10/03/19 Range/Units 06:34 07:23 11:25 WBC (3.8-10.6) k/uL RBC (4.30-5.90) m/uL Hgb (13.0-17.5) gm/dL Hct (39.0-53.0) % Plt Count (150-450) k/uL Neutrophils # (1.3-7.7) k/uL Sodium 136 L (137-145) mmol/L Potassium 3.4 L (3.5-5.1) mmol/L Glucose 166 H (74-99) mg/dL POC Glucose (mg/dL) 160 H 226 H (75-99) mg/dL Calcium 8.0 L (8.4-10.2) mg/dL Assessment and Plan (1) Distal radial fracture Narrative/Plan: Patient has been discussed with Dr. Nichole. He is offered to accept transfer of care. He'll continue wound care, splint care, pain management, elevation and medical management. He may be discharged from an orthopedic standpoint when okay with internal medicine. We will follow peripherally at this point. Current Visit: Yes Status: Acute Priority: Medium Code(s): S52.509A - UNSP FRACTURE OF THE LOWER END OF UNSP RADIUS, INIT SNOMED Code(s): 980260544 Time with Patient: Less than 30
[2019-10-03] MEDS ORDERED: Magnesium Replacement Protocol 1 EACH MISC MISCELLANE PRN (15:30)
[2019-10-03] MEDS ORDERED: Potassium Replacement Protocol 1 EACH MISC MISCELLANE PRN (15:30)
--- NOTE | 2019-10-03 16:27 | P.OP ---
Date of Procedure: 10/01/19 Preoperative Diagnosis: 1. Complex, comminuted extra-articular left distal radius fracture with associated ulnar styloid base fracture 2. Morbid obesity Postoperative Diagnosis: 1. Complex, comminuted intra-articular left distal radius fracture with associated ulnar styloid base fracture 2. Morbid obesity Procedure(s) Performed: Open reduction and internal fixation of complex, intra-articular left distal radius fracture (>3 fragments: CPT 83906) Implants: Acumed Acu-Loc 2 volar distal radius plate (left, long/standard width) with locking and cortical screws; 0.062 K wires (2) Anesthesia: GETA, regional Surgeon: Keny Gaffney Estimated Blood Loss (ml): 50 Condition: stable Disposition: PACU Indications for Procedure: The patient is a pleasant 79-year-old male who experienced a ground-level fall which resulted in a comminuted left distal radius fracture. Treatment options (and associated risks and benefits) were discussed with the patient and his . The fracture pattern was inherently unstable and there was a large, displaced volar metaphyseal fragment, concerning for subsequent soft tissue and neurovascular compromise. I recommended prompt open reduction and surgical stabilization. Associated risks and benefits were discussed, including (but not limited to) the risk of infection, bleeding, injury to tendons or neurovascular structures, malunion and possible need for additional surgery. They expressed understanding, willingness to accept these risks and wished to proceed with surgery. Consent forms were signed. The surgical site was confirmed and marked preoperatively. Description of Procedure: The patient was administered a regional nerve block by the anesthesia team and then brought to the operating suite. He was positioned supine with the left arm on an arm board. All bony prominences were well-padded. General anesthesia was administered uneventfully, along with prophylactic IV antibiotics. A tourniquet was placed on the left arm, which was then prepped and draped in standard, sterile fashion. A timeout was performed, confirming patient identifiers, the operative side, the site and the procedure to be performed: all team members expressed agreement. The fracture was evaluated with intraoperative fluoroscopy. Of note, the patient had significantly restricted external rotation of both the shoulder and forearm, making it extremely difficult to obtain the necessary radiographic views. The limb was exsanguinated with an Esmarch and the tourniquet was inflated. A standard volar FCR approach was utilized. The skin was sharply incised. The subcutaneous tissues were spread, coagulating superficial vessels as needed. The radial artery was identified and protected throughout the case. The FCR sheath was released and the tendon was mobilized. The floor of the sheath was incised: the underlying musculature was already markedly edematous. Blunt finger dissection was used to develop Paronas space. The bony spike of volar metaphysis (seen on preop imaging) was identified protruding through the substantially traumatized pronator quadratus muscle belly. Extending from the traumatic region, the muscle was sharply incised and elevated off the volar radius to expose the rest of the fracture site. The large volar metaphyseal fragment comprised approximately a third of the circumference of the metaphysis. There was also marked dorsal metaphyseal comminution. There was a comminuted radial styloid component. Non-displaced fracture lines were identified, extending into the radiocarpal joint along the scaphoid and lunate fossae. The fracture also extended into the DRUJ. The fracture site was opened and cleaned of hematoma. A Erie elevator was inserted into the fracture site to release the impacted dorsal fragments and dorsal capsule. Care was taken to avoid injury to the extensor tendons. The volar metaphyseal fragment reduced well but was not amenable provisional fixation with clamps or wires due to the orientation of the fracture lines and associated dorsal comminution. A manual reduction was attempted, but there was substantial residual shortening and radial translation of the distal fragments. Efforts to achieve reduction through manual maneuvers and ligamentotaxis proved difficult due to the patients large and obese body habitus. Sterile finger traps were placed and 10lbs of skeletal traction was applied. The brachioradialis tendon insertion was released to alleviate this as a deforming force, taking care to protect the first dorsal compartment tendons. A 0.062 K wire was inserted percutaneously into the radial styloid. While applying manual axial traction and ulnar deviation, the wire was advanced into the metaphysis. A second wire was inserted in a similar fashion for additional provisional stabilization. Using a dental pick and Sebastian-Kleinert elevator, the volarly and dorsal metaphyseal fragments with mobilized and reduced. Factoring in the patients anatomy and specific fracture pattern, a plate was selected and provisionally pinned in place with K-wires. Plate position and fracture reduction were assessed on orthogonal imaging: interval subluxation of the radial styloid fragments was noted, along with loss of volar tilt (secondary to the metaphyseal comminution). The distal K wires securing the plate were removed. The K wire in the styloid was backed out and the fracture was remanipulated, using the plate as a reduction tool. The percutaneous K wires were driven back into the metaphysis and the distal K wires were reinserted through the plate. Repeat imaging showed improved alignment on orthogonal images. Locking screws were then sequentially drilled, measured and inserted distally, confirming length and trajectory with fluoroscopy. The most proximal ulnar screw hole in the distal aspect of the plate was left empty, as it was situated directly over a fracture line. The provisional K-wires were removed. A locking screw was inserted through the plate to provide additional control of the volar metaphyseal fragment. The initial shaft cortical screw did not gain very good purchase and was exchanged for a locking screw. An additional cortical screw was drilled and inserted to further secure the plate to the metaphysis. The percutaneous K wires were removed. X-rays were obtained, including a 20 inclined lateral view, confirming extra- articular screw placement. The wrist was then ranged under live fluoroscopy: the overall fixation construct was solid but there was residual motion of the radial styloid fragments. With the wrist held in ulnar deviation, two 0.062 K-wires were introduced into the radial styloid and advanced into the proximal metaphysis. This afforded improved stability but, due to the comminution, there was still some subtle motion of these fragments with stress. No further fixation was deemed necessary. Final images were obtained. The tourniquet was released after 108 minutes at 250 mm Hg and was not used for the remainder of the case. Good hemostasis was initially obtained with manual pressure. The viable portions of the pronator were loosely repaired over the plate with interrupted 2-0 Vicryl sutures. A small arterial branch bleeder off the anterior interosseous artery was coagulated with electrocautery, achieving excellent hemostasis. The wound was thoroughly irrigated with normal saline. Due to the amount of edema and expectation of additional postop swelling, 2-0 Prolene retention sutures (using a [id number]-near stitch) were placed at several points along the length of the incision to disperse the tension. This allowed excellent reapproximation of the wound edges, without undue tension. The subcutaneous tissues were closed with interrupted 2-0 Vicryl sutures. The incision was closed with interrupted 3-0 Nylon simple and horizontal mattress sutures. The pins were cut outside the skin and covered with Jurgan balls. Local anesthetic with epinephrine was injected into the perioperative subcutaneous tissues (primarily dorsally and ulnarly) for adjunct postoperative pain control and hemostasis. A sterile dressing was applied followed by a volar short arm plaster splint. All sponge, needle and instrument counts were correct at the end of the case. The patient tolerated the procedure well and was taken to the recovery room in stable condition.
[2019-10-03 16:52] LABS: Glucose,Whole Blood 242 mg/dL (75-99)
--- NOTE | 2019-10-03 17:13 | PN ---
PROGRESS NOTE DATE OF SERVICE: 10/03/2019 This 79-year-old gentleman underwent ORIF of the left arm after a fall and fracture. The patient has significant hypoglycemia. The patient is undergoing syncope workup. CT scan showed cerebral atrophy and chronic small ischemia in the right parietal lobe. Otherwise, a chest x-ray was personally reviewed by me and showed mild pulmonary fibrotic changes, otherwise other labs showed sodium 137, potassium 3.4. A carotid Doppler and 2D echo also has been requested. Also, insulin dose drastically reduced to 30 units subcu q.h.s. with sugars in the 200s. No chest pain. No palpitations. No fever. Past medical history reviewed. CURRENT MEDICATIONS: Reviewed and include: 1. DuoNeb q.i.d. 2. Vitamin C. 3. Aspirin. 4. Lipitor. 5. Alphagan. 6. Colace. 7. Folic acid. 8. Lasix. 9. Neurontin. 10.Heparin. 11.Dilaudid. 12.Levemir 30 units. 13.Ativan. 14.Multivitamins. 15.Narcan. 16.Propafenone. 17.Zofran. 18.Percocet. 19.Protonix. 20.Vitamin B1. 21.Flomax. PHYSICAL EXAMINATION: Patient is alert, oriented x3. Pulse 80. Blood pressure 130/56, respiration 18, temperature 99 degrees, pulse ox 92% on room air. HEENT: Conjunctivae normal. NECK: No JVD. CARDIOVASCULAR: S1, S2 muffled. RESPIRATORY SYSTEM: Breath sounds diminished at the bases. A few scattered rhonchi and crackles. ABDOMEN: Soft, nontender. LEGS are no edema. No swelling. LABS: WBC 7.3, hemoglobin 11.2, sodium 136, potassium 3.4. ASSESSMENT: 1. Distal comminuted displaced intra-articular left distal radius fracture status post ORIF. 2. Change in mental status acute metabolic encephalopathy. 3. Syncope for evaluation. 4. Chest pain for evaluation, rule out coronary artery disease. 5. Severe hypoglycemia. 6. Fall for evaluation. 7. Increased creatinine with mild acute renal failure present on admission. 8. Hyponatremia. 9. Increased WBC possibly reactive in nature. 10.History of atrial fibrillation chronic. 11.Diabetes mellitus type 2. 12.Hyperlipidemia. 13.Hypertension. 14.History of degenerative joint disease. 15.History of pneumonia. 16.History of sleep apnea. 17.Diabetic peripheral neuropathy. 18.History of peripheral vascular disease. 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 20.Degenerative joint disease. 21.Restless legs syndrome history. 22.Diffuse tremors history. 23.Remote history of nicotine dependence. 24.Obesity with body mass index of 38.7. 25.Hypokalemia. RECOMMENDATIONS AND DISCUSSION: I recommend to continue current medications, continue to monitor, symptomatic treatment. Otherwise at this time continue with insulin. I would recommend potassium and magnesium replacement schedule and monitor blood sugars closely. Increase ambulation. Complete the syncope workup. Closely follow with Orthopedic surgery. Further recommendations to follow. MMLILYL / IJN: [id number] /
--- NOTE | 2019-10-03 17:49 | US ---
EXAMINATION TYPE: US carotid duplex BILAT DATE OF EXAM: 10/03/2019 COMPARISON: NONE CLINICAL HISTORY: syncope. Syncope EXAM MEASUREMENTS: RIGHT: Peak Systolic Velocity (PSV) cm/sec ----- Right CCA: 130.0 ----- Right ICA: 214.0 ----- Right ECA: 138.0 ICA/CCA ratio: 1.7 RIGHT: End Diastole cm/sec ----- Right CCA: 16.9 ----- Right ICA: 49.1 ----- Right ECA: 17.9 LEFT: Peak Systolic Velocity (PSV) cm/sec ----- Left CCA: 177.0 ----- Left ICA: 109.0 ----- Left ECA: 127.0 ICA/CCA ratio: 0.6 LEFT: End Diastole cm/sec ----- Left CCA: 20.7 ----- Left ICA: 8.9 ----- Left ECA: 0.0 VERTEBRALS (direction of flow): Right Vertebral: Antegrade Left Vertebral: Antegrade Rhythm: Normal Difficult and limited study due to patient's body habitus Bilateral intimal thickening, elevated velocities: right prox and distal CCA, right prox mid and dist al ICA, right prox ECA, left prox and distal CCA and left bulb, no significant stenosis. IMPRESSION: There is antegrade flow in the vertebral arteries. Exam was somewhat limited. There is bilateral elevated common carotid artery velocity suggestive of 50-70% stenosis. There is el evated right internal carotid artery velocities suggestive of 70% stenosis. Criteria for Assigning % of Stenosis / Diameter reduction (Estimation based on the indirect measurements of the internal carotid artery velocities (ICA PSV). 1. Normal (no stenosis)=ICA PSV < 125 cm/s: ratio < 2.0: ICA EDV<40 cm/s. 2. Less than 50% stenosis=ICA PSV < 125 cm/s: ratio < 2.0: ICA EDV<40 cm/s. 3. 50 to 69% stenosis=ICA PSV of 125 to 230 cm/s: ration 2.0 ? 4.0: ICA EDV 40-100 cm/s. 4. Greater than 70% stenosis to near occlusion= ICA PSV > 230 cm/s: ratio > 4.0: ICA EDV > 100 cm/s. 5. Near occlusion= ICA PSV velocities may be low or undetectable: variable ratio and ICA EDV. 6. Total occlusion=unable to detect flow.
[2019-10-03 20:44] LABS: Glucose,Whole Blood 246 mg/dL (75-99)
[2019-10-03] MEDS: INSULIN DETEMIR (LEVEMIR) 100 UNIT/ML SYR SQ SCH (21:32)
[2019-10-03] MEDS: LATANOPROST 0.005% OPHTH DROPS 2.5 ML BTL RIGHT EYE SCH (21:38)
[2019-10-03] MEDS: DOXYCYCLINE 100 MG CAP PO SCH (21:39)
[2019-10-03] MEDS: PANTOPRAZOLE 40 MG TABLET PO SCH (21:40)
[2019-10-03] MEDS: ASPIRIN 325 MG TAB PO SCH (21:40)
[2019-10-04] MEDS: 0.9% NACL WITH KCL 40 MEQ/L 1,000 ML IV SCH (02:49)
[2019-10-04 06:47] LABS: Glucose,Whole Blood 204 mg/dL (75-99)
[2019-10-04 07:47] VITALS: BP 96/46; PULSE 70; RESP 18; TEMP 99.5
[2019-10-04] MEDS: HEPARIN SODIUM,PORCINE 5,000 UNIT/ML 1 ML VIAL SQ SCH (08:06)
[2019-10-04] MEDS: PROPAFENONE PO SCH (08:07)
[2019-10-04] MEDS: INSULIN ASPART (NovoLOG) 100 UNIT/ML VIAL SQ SCH ×2 (08:11→12:48)
[2019-10-04] MEDS: hydrALAZINE HCL 50 MG TAB PO SCH (08:11)
[2019-10-04] MEDS: ATORVASTATIN 20 MG TAB PO SCH (08:11)
[2019-10-04] MEDS: FOLIC ACID 1 MG TAB PO SCH (08:11)
[2019-10-04] MEDS: DOXYCYCLINE 100 MG CAP PO SCH (08:11)
[2019-10-04] MEDS: TAMSULOSIN 0.4 MG CAP.ER.24H PO SCH (08:11)
[2019-10-04] MEDS: FUROSEMIDE 40 MG TAB PO SCH (08:11)
[2019-10-04] MEDS: GABAPENTIN 300 MG CAP PO SCH (08:11)
[2019-10-04] MEDS: MULTIVITAMINS, THERA 1 EACH TAB PO SCH (08:12)
[2019-10-04] MEDS: ASCORBIC ACID 500 MG TAB PO SCH (08:12)
[2019-10-04] MEDS: THIAMINE 100 MG TAB PO SCH (08:12)
[2019-10-04] MEDS: BRIMONIDINE TARTRATE 0.2% DROPS 5 ML BTL RIGHT EYE SCH (08:12)
[2019-10-04] MEDS: IPRATROPIUM-ALBUTEROL 3 ML NEB INHALATION SCH ×2 (08:34→12:12)
[2019-10-04 11:28] LABS: Glucose,Whole Blood 230 mg/dL (75-99)
--- NOTE | 2019-10-04 15:37 | PN ---
PROGRESS NOTE DATE OF SERVICE: 10/04/2019 This 79-year-old gentleman who was admitted after a fall as well as distal radial fracture also had syncope workup. Carotid arteries showed bilateral carotid stenosis of about 50% to 70% stenosis. The patient is being closely monitored at this time. The blood sugar is also elevated, but please note the patient's CBC showed significant hypoglycemia. The patient apparently is not checking blood sugars very often. Past medical reviewed. REVIEW OF SYSTEMS: CARDIOVASCULAR SYSTEM: No angina, palpitations. RESPIRATORY SYSTEM: As mentioned earlier. GI: As mentioned earlier. : No dysuria or retention. NERVOUS SYSTEM: No numbness, weakness. CURRENT MEDICATIONS: Reviewed. They include: 1. DuoNeb q.i.d. and p.r.n. 2. Vitamin C. 3. Aspirin. 4. Lipitor. 5. Colace. 6. Vibramycin. 7. Folic acid. 8. Lasix. 9. Neurontin. 10.Heparin. 11.Apresoline. 12.Dilaudid. 13.Levemir. 14.Xalatan. 15.Zestril. 16.Ativan. 17.Replacement protocol. 18.Zofran. 19.Percocet. 20.Protonix. 21.Flomax. 22.Vitamin B1. PHYSICAL EXAMINATION: Patient is alert, oriented x3. Pulse 70, blood pressure 96/46, respiration 18, temperature 99.4, pulse ox 94% on room air. HEENT: Conjunctivae normal. Oral mucosa moist. NECK: No jugular venous distention. CARDIOVASCULAR SYSTEM: S1, S2 muffled. RESPIRATORY SYSTEM: A few scattered rhonchi. ABDOMEN: Soft, non-tender. LEGS: No edema. No swelling. NERVOUS SYSTEM: No focal deficit. EXAMINATION OF THE HAND: Status post surgery on the left . LAB INVESTIGATIONS: Accu-Cheks 204, 230. ASSESSMENT: 1. Distal comminuted displaced intra-articular left-sided radius fracture, status post open reduction internal fixation. 2. Bilateral carotid artery stenosis and change in mental status, acute metabolic encephalopathy. 3. Syncope for evaluation. 4. Chest pain. Myocardial infarction ruled out. 5. Severe hypoglycemia with diabetes mellitus, uncontrolled. 6. Fall for evaluation. 7. Increased creatinine with mild acute renal failure, present on admission. 8. Hyponatremia. 9. Increased white count, possibly reactive in nature. 10.History of atrial fibrillation, chronic. 11.Diabetes mellitus, type 2. 12.Hyperlipidemia. 13.Hypertension. 14.History of degenerative joint disease. 15.History of pneumonia. 16.History of sleep apnea. 17.Diabetic peripheral neuropathy. 18.History of peripheral vascular disease. 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 20.Degenerative joint disease. 21.Restless legs syndrome history. 22.Diffuse tremors history. 23.Remote history of nicotine dependence. 24.Obesity with body mass index of 38.7. 25.Hypokalemia. RECOMMENDATIONS AND DISCUSSION: I recommend to continue current medications, continue with the monitoring, symptomatic treatment. The patient is apparently not using the continuous glucose monitor because he never installed the application on the phone. I would recommend a diabetic education consult and also monitor Accu-Cheks closely before meals and at bedtime with glucometer at home. Continue to follow with Dr. Gandara at home. At this time I recommend reducing the insulin to 40 units subcutaneously at bedtime and continue to monitor. Recommend vascular surgery consultation as an outpatient for carotid artery stenosis. The prognosis is guarded because of the multiple complex medical issues. Further recommendations to follow. MMODL / IJN: [id number] / MTDChristy
--- NOTE | 2019-10-04 18:00 | ECHOF ---
Referral Reason:syncope MEASUREMENTS -------- HEIGHT: 180.3 cm WEIGHT: 122.5 kg BP: 144/62 IVSd: 1.3 cm (0.6 - 1.1) LVIDd: 3.7 cm (3.9 - 5.3) LVPWd: 1.4 cm (0.6 - 1.1) IVSs: 1.8 cm LVIDs: 2.5 cm LVPWs: 1.7 cm Ao Diam: 3.4 cm (2.0 - 3.7) AV Cusp: 2.2 cm (1.5 - 2.6) LA Diam: 3.5 cm (2.7 - 3.8) MV EXCURSION: 20.130 mm (> 18.000) MV EF SLOPE: 77 mm/s (70 - 150) EPSS: 0.7 cm MV E Jose: 0.42 m/s MV DecT: 227 ms MV A Jose: 0.58 m/s MV E/A Ratio: 0.72 RAP: 5.00 mmHg RVSP: 8.92 mmHg FINDINGS -------- This was a technically difficult study with suboptimal views. The left ventricular size is normal. There is moderate concentric left ventricular hypertrophy. O verall left ventricular systolic function is normal with, an EF between 55 - 60 %. The RV was not well visualized. The left atrium was not well visualized. The right atrium was not well visualized. Lumason used The aortic valve was not well visualized. The mitral valve was not well visualized. There is trace mitral regurgitation. The tricuspid valve was not well visualized. Trace tricuspid regurgitation present. Right ventric ular systolic pressure is normal at < 35 mmHg. The pulmonic valve was not well visualized. The aortic root size is normal. IVC Not well visulized. There is no pericardial effusion. CONCLUSIONS -------- 1. The left ventricular size is normal. 2. There is moderate concentric left ventricular hypertrophy. 3. Overall left ventricular systolic function is normal with, an EF between 55 - 60 %. 4. There is trace mitral regurgitation. 5. Trace tricuspid regurgitation present. ELEVATOR CONSTRUCTOR HYDRAULIC: Gianna Rosas [facility]
[2019-10-04] MEDS ORDERED: INSULIN DETEMIR (LEVEMIR) 100 UNIT/ML SYR SQ SCH (21:00)
--- NOTE | 2019-10-05 14:40 | P.DS ---
Providers Date of admission: 10/03/19 15:36 Expected date of discharge: 10/04/19 Attending physician: Harman Nichole Consults: 10/01/19 07:30 Consult Physician Urgent Consulting Provider: Duncan Spears Consult Reason/Comments: Distal radius fracture Do you want consulting provider notified?: Already Contacted 10/02/19 11:42 Consult Physician Urgent Consulting Provider: Harman Nichole Consult Reason/Comments: Severe hypoglycemia Do you want consulting provider notified?: Yes Primary care physician: Rosemary White Hospital Course: Final diagnosis Distal comminuted displaced intra-articular left-sided radius fracture, status post ORIF Bilateral carotid artery stenosis and change in mental status, acute metabolic encephalopathy Syncope for evaluation Chest pain area did myocardial infarction ruled out Severe hypoglycemia with diabetes mellitus, uncontrolled Fall for evaluation Increased creatinine with mild acute renal failure, present on admission Hyponatremia Increased white count, possibly reactive in nature History of atrial fibrillation, chronic diabetes mellitus type 2 Hyperlipidemia Hypertension History of degenerative joint disease history of pneumonia History of sleep apnea Diabetic peripheral neuropathy History of peripheral vascular disease 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 Patient will follow-up with Dr. White upon discharge. Patient will continue with aspirin. Patient will continue on oral antibiotics in the form of doxycycline 100 mg twice daily for the next 7 days to complete the course. p atient instructed to follow-up with orthopedic surgery along with vascular surgery in the outpatient setting. Total time taken is 35 minutes. History of present illness This is a 79-year-old male who was recently admitted after a fall as well as a distal radial fracture and some syncope and was being closely monitored. During hospitalization patient underwent chronic Doppler study showing bilateral carotid artery stenosis of 50-70%. patient will continue on aspirin and will follow-up with vascular surgery in the outpatient setting. During hospitalization patient underwent ORIF of the left distal radius fracture with Dr. Gaffney and will be following up in the outpatient setting in 1 week. During hospitalization patient had some fluctuations in blood sugars as and adjustments have been made to medications. Patient will continue with Lantus 40 units at bed along with pre-meal insulin. Patient instructed to continue to monitor blood sugars before meals at bedtime and keep a diary for primary care follow-up. Currently no reports of chest pain, shortness of breath, or palpitations. Patient is afebrile. No reports of nausea or vomiting and patient is tolerating diet. Guarded prognosis. On exam vital signs are stable. Temp is 99.5F, pulse is 70, respirations are 18, blood pressure is 96/46, oxygen saturation is 94% on room air. Cardio S1, S2 are muffled. Respiratory shows diminished breath sounds at the bases with no wheezing or rhonchi noted. Abdomen is soft and nontender. Nervous system shows no focal deficits. Please refer to medication reconciliation sheet for a list of medications. Assessment: 1. Status post open reduction and internal fixation of comminuted, displaced intra-articular left distal radius fracture with associated ulnar styloid base fracture status post fall on 09/30/19 2. Acute hypoglycemia 3. 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 Chronic kidney disease, stage III 5. 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 Morbid obesity Patient Condition at Discharge: Stable Plan - Discharge Summary Discharge Rx Participant: Yes New Discharge Prescriptions: New Doxycycline [Vibramycin] 100 mg PO BID 7 Days #14 capsule Multivitamins, Thera [Multivitamin (formulary)] 1 each PO DAILY@1200 30 Days #30 tab Thiamine [Vitamin B-1] 100 mg PO DAILY@1200 30 Days #30 tab Continue Propafenone Sr [Rythmol Sr] 450 mg PO DAILY Omeprazole [PriLOSEC] 20 mg PO HS Garlic 1 tab PO DAILY Folic Acid 1 mg PO DAILY Fish Oil/Dha/Epa [Fish Oil 1,200 mg Fish Oil] 1,000 mg PO DAILY Aspirin 325 mg PO HS Travoprost [Travatan Z 0.004%] 1 drop RIGHT EYE DAILY oxyCODONE HCL/ACETAMINOPHEN [Percocet 10-325 mg] 1 tab PO Q6HR PRN PRN Reason: Pain Ferrous Sulfate [Iron (65 MG Elemental)] 325 mg PO DAILY Vitamin B Complex 1 cap PO DAILY Potassium Chloride [K-Tab ER] 20 meq PO DAILY #30 tablet.er Docusate [Colace] 100 mg PO DAILY PRN PRN Reason: Constipation lisinopriL [Zestril] 2.5 mg PO DAILY Glucagon Emergency Kit 1 mg SQ DIRECTED PRN PRN Reason: HYPOGLYCEMIC Gabapentin [Neurontin] 600 mg PO TID Tamsulosin HCl [Flomax] 0.4 mg PO DAILY Atorvastatin [Lipitor] 20 mg PO DAILY hydrALAZINE HCL [Apresoline] 100 mg PO DAILY Ascorbic Acid [Vitamin C] 500 mg PO DAILY Furosemide [Lasix] 80 mg PO BID Insulin Aspart [NovoLOG Flexpen] 12 units SQ TID-W/MEALS Unknown Sleep Aid (Unknown Strength) 1 tab PO HS PRN PRN Reason: Insomnia Brimonidine Tartrate [Alphagan P 0.2% Ophth Soln] 1 drops RIGHT EYE BID Changed Insulin Glargine [Lantus] 40 unit SQ HS #0 Discharge Medication List Aspirin 325 mg PO HS 06/17/13 [History] Fish Oil/Dha/Epa [Fish Oil 1,200 mg Fish Oil] 1,000 mg PO DAILY 06/17/13 [History] Folic Acid 1 mg PO DAILY 06/17/13 [History] Garlic 1 tab PO DAILY 06/17/13 [History] Omeprazole [PriLOSEC] 20 mg PO HS 06/17/13 [History] Propafenone Sr [Rythmol Sr] 450 mg PO DAILY 06/17/13 [History] Travoprost [Travatan Z 0.004%] 1 drop RIGHT EYE DAILY 08/16/13 [History] Ferrous Sulfate [Iron (65 MG Elemental)] 325 mg PO DAILY 05/19/17 [History] Vitamin B Complex 1 cap PO DAILY 05/19/17 [History] oxyCODONE HCL/ACETAMINOPHEN [Percocet 10-325 mg] 1 tab PO Q6HR PRN 05/19/17 [History] Potassium Chloride [K-Tab ER] 20 meq PO DAILY #30 tablet.er 05/23/17 [Rx] Atorvastatin [Lipitor] 20 mg PO DAILY 04/10/18 [History] Docusate [Colace] 100 mg PO DAILY PRN 04/10/18 [History] Gabapentin [Neurontin] 600 mg PO TID 04/10/18 [History] Glucagon Emergency Kit 1 mg SQ DIRECTED PRN 04/10/18 [History] Tamsulosin HCl [Flomax] 0.4 mg PO DAILY 04/10/18 [History] hydrALAZINE HCL [Apresoline] 100 mg PO DAILY 04/10/18 [History] lisinopriL [Zestril] 2.5 mg PO DAILY 04/10/18 [History] Ascorbic Acid [Vitamin C] 500 mg PO DAILY 10/01/19 [History] Brimonidine Tartrate [Alphagan P 0.2% Ophth Soln] 1 drops RIGHT EYE BID 10/01/19 [History] Furosemide [Lasix] 80 mg PO BID 10/01/19 [History] Insulin Aspart [NovoLOG Flexpen] 12 units SQ TID-W/MEALS 10/01/19 [History] Unknown Sleep Aid (Unknown Strength) 1 tab PO HS PRN 10/01/19 [History] Doxycycline [Vibramycin] 100 mg PO BID 7 Days #14 capsule 10/02/19 [Rx] Insulin Glargine [Lantus] 40 unit SQ HS #0 10/04/19 [Rx] Multivitamins, Thera [Multivitamin (formulary)] 1 each PO DAILY@1200 30 Days #30 tab 10/04/19 [Rx] Thiamine [Vitamin B-1] 100 mg PO DAILY@1200 30 Days #30 tab 10/04/19 [Rx] Follow up Appointment(s)/Referral(s): Floyd Yee DO [STAFF PHYSICIAN] - 1 Week (carotid artery stenosis) Rosemary White DO [Primary Care Provider] - 1-2 days Keny Gaffney DO [Medical Doctor] - 10 Days Activity/Diet/Wound Care/Special Instructions: Orthopedic Postoperative Discharge Instructions Ice & elevate the left hand & wrist. Use percocet (has at home) or [id number] pain medication as directed. May take percocet 10 mg tablets up to 1 every 4 hours as needed for pain. An antibiotic has been prescribed to prevent infection after surgery. The hand should ONLY be used for light assistanct with necessary daily activities (eating/dressing/etc). No strenuous/forceful use of the hand. No lifting/gripping/pushing/pulling. Do not remove the splint/dressing. Keep it dry - cover with a plastic bag to shower. Perform finger & thumb [id number] exercises several times daily. No squeeze balls. Ok to use the other hand to move the fingers if necessary. Call as soon as possible to schedule a follow-up appointment with Dr. Gaffney to be seen in approximately 10-14 days. Activity Limited until follow-up Follow-up with primary care provider upon discharge Continue monitoring blood sugars before meals at bedtime and keep a diary for primary care follow-up Continue with long-acting insulin 40 units at bed Follow-up with orthopedic surgery in the outpatient setting Continue with antibiotics until finished ac achs and results to dr white Discharge Disposition: HOME SELF-CARE
== END 2019-10-04 14:35 | disposition home or self-care (01) | DRG 510 ==
LOC: EC 01:28 → INTOOBSV 07:41 → 4SSUR 07:41 → OBSVTOIN 10-03 15:36
PROVIDERS: ADMIT Hospitalist; ATTEND Hospitalist
PROC: 0PSJ04Z Reposition Left Radius with Internal Fixation Device, Open Approach (ICD-10-PCS; principal; 2019-10-01 10:10)
DX: S52.552A Other extraarticular fracture of lower end of left radius, initial encounter for closed fracture (principal); G93.41 Metabolic encephalopathy; I48.20 Chronic atrial fibrillation, unspecified; E87.1 Hypo-osmolality and hyponatremia; N17.9 Acute kidney failure, unspecified; E11.22 Type 2 diabetes mellitus with diabetic chronic kidney disease; E11.42 Type 2 diabetes mellitus with diabetic polyneuropathy; E11.51 Type 2 diabetes mellitus with diabetic peripheral angiopathy without gangrene; E66.01 Morbid (severe) obesity due to excess calories; E78.5 Hyperlipidemia, unspecified; H91.90 Unspecified hearing loss, unspecified ear; H54.61 Unqualified visual loss, right eye, normal vision left eye; M19.90 Unspecified osteoarthritis, unspecified site; I12.9 Hypertensive chronic kidney disease with stage 1 through stage 4 chronic kidney disease, or unspecified chronic kidney disease; N18.3 Chronic kidney disease, stage 3 (moderate); G25.81 Restless legs syndrome; G89.29 Other chronic pain; E87.6 Hypokalemia; I65.23 Occlusion and stenosis of bilateral carotid arteries; W18.30XA Fall on same level, unspecified, initial encounter; E11.649 Type 2 diabetes mellitus with hypoglycemia without coma; Z20.828 Contact with and (suspected) exposure to other viral communicable diseases; Z79.4 Long term (current) use of insulin; Z79.82 Long term (current) use of aspirin; Z79.899 Other long term (current) drug therapy; Z79.891 Long term (current) use of opiate analgesic; Z68.38 Body mass index [BMI] 38.0-38.9, adult; Z88.1 Allergy status to other antibiotic agents; Z88.2 Allergy status to sulfonamides; Z91.018 Allergy to other foods; Z87.01 Personal history of pneumonia (recurrent); Z87.891 Personal history of nicotine dependence; Z89.511 Acquired absence of right leg below knee; Z86.14 Personal history of Methicillin resistant Staphylococcus aureus infection; Z83.3 Family history of diabetes mellitus; Z82.49 Family history of ischemic heart disease and other diseases of the circulatory system; Z98.42 Cataract extraction status, left eye; Z98.890 Other specified postprocedural states; Z83.79 Family history of other diseases of the digestive system; Y92.000 Kitchen of unspecified non-institutional (private) residence as the place of occurrence of the external cause
CPT/HCPCS: 36415; 64999; 70450; 71045; 76000; 76942; 80048; 80053; 81003; 82306; 83735; 84484; 85025; 85610; 85730; 93005; 93306; 93880; 94640; 96361; 96374; 96375; 96376; 99285

== ENCOUNTER → 2020-06-02 | Outpatient (CLI) | payer MEDICARE ==
[2020-06-02 23:53] LABS: HCT 37.9 % (39.6-50.0); HGB 12.2 g/dL (13.0-17.0); MCH 31.9 pg (27.0-32.0); MCHC 32.2 g/dL (32.0-37.0); Mean Platelet Volume 12.1 fL (9.5-12.2); Platelet Count 242 X 10*3/uL (140-440); RBC 3.83 X 10*6/uL (4.40-5.60); RDW 12.9 % (11.5-14.5); WBC 7.63 X 10*3/uL (4.50-10.00)
[2020-06-03 01:59] LABS: Erythrocyte Sedimentation Rate 44 mm/Hr (0-20)
== END | disposition home or self-care (01) ==
LOC: LABWHC1 11:23
PROVIDERS: ATTEND Nurse Practitioner
DX: Z48.89 Encounter for other specified surgical aftercare (principal); M79.644 Pain in right finger(s); M00.9 Pyogenic arthritis, unspecified
CPT/HCPCS: 36415; 85027; 85652; 86140; 87040

== ENCOUNTER 2022-02-05 19:34 | Inpatient (IN) | payer MEDICARE ==
[2022-02-05] MEDS ORDERED: SODIUM CHLORIDE 0.9% 1,000 ML IV STA (19:56)
[2022-02-05] MEDS ORDERED: ONDANSETRON 4 MG/2 ML VIAL IVP STA (19:56)
[2022-02-05] MEDS ORDERED: MORPHINE SULFATE 4 MG/ML SYRINGE IV STA ×2 (19:57→20:49)
[2022-02-05 20:09] LABS: Glucose,Whole Blood 120 mg/dL (70-110)
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
--- NOTE | 2022-02-05 20:36 | XR ---
EXAMINATION TYPE: XR chest 1V portable DATE OF EXAM: 02/05/2022 COMPARISON: Chest x-ray October 02, 2019 HISTORY: Pain after fall injury. TECHNIQUE: Single frontal supine view of the chest is obtained. FINDINGS: There is mild chronic parenchymal change without suspicious focal air space opacity, pleur al effusion, or pneumothorax seen. Cardiomegaly is redemonstrated limits. The osseous structures ar e intact. IMPRESSION: Chronic changes and cardiomegaly without acute pulmonary process.
[2022-02-05 20:38] LABS: Basophils # (A) 0.1 k/uL (0-0.2); Basophils % (A) 1 %; Eosinophils # (A) 0.5 k/uL (0-0.7); Eosinophils % (A) 5 %; HCT 36.5 % (39.0-53.0); HGB 12.2 gm/dL (13.0-17.5); Lymphocytes % (A) 20 %; MCH 32.6 pg (25.0-35.0); MCHC 33.6 g/dL (31.0-37.0); MCV 97.2 fL (80.0-100.0); Mean Platelet Volume 9.5; Monocytes # (A) 0.6 k/uL (0-1.0); Monocytes % (A) 6 %; Neutrophils # (A) 6.6 k/uL (1.3-7.7); Neutrophils % (A) 66 %; Platelet Count 197 k/uL (150-450); RBC 3.75 m/uL (4.30-5.90); RDW 13.1 % (11.5-15.5)
--- NOTE | 2022-02-05 20:38 | XR ---
EXAMINATION TYPE: XR Hip LT and AP Pelvis, XR femur LT DATE OF EXAM: 02/05/2022 COMPARISON: NONE HISTORY: Pain after fall injury. TECHNIQUE: A single AP view of the pelvis is obtained. Two views of the left hip and femur are obtain ed. FINDINGS: There is acute comminuted displaced intertrochanteric fracture of left proximal femur. Th ere is a larger fracture fragment involving the greater trochanter noted. No hip joint dislocation. M oderate axial joint space loss in both hips is present. Osseous structures are somewhat demineralized . No additional acute displaced fracture in the pelvis or in the distal femur. Moderate to severe tri compartment joint space loss in the left knee is noted. Occasional scattered pelvic phleboliths. Ther e is popliteal artery vascular calcification noted IMPRESSION: There is acute comminuted displaced intertrochanteric fracture left proximal femur.
[2022-02-05 20:52] LABS: Albumin 3.1 g/dL (3.5-5.0); Total Bilirubin 0.4 mg/dL (0.2-1.3); Total Protein 6.4 g/dL (6.3-8.2)
[2022-02-05] MEDS ORDERED: MORPHINE SULFATE 4 MG/ML SYRINGE IV PRN (20:59)
[2022-02-05] MEDS ORDERED: ONDANSETRON 4 MG/2 ML VIAL IVP PRN (20:59)
[2022-02-05] MEDS ORDERED: NALOXONE 0.4 MG/ML 1 ML VIAL IV PRN (20:59)
[2022-02-05] MEDS ORDERED: HEPARIN SODIUM,PORCINE/PF 5,000 UNIT/0.5 ML SYRINGE SQ SCH (21:00)
[2022-02-05] MEDS ORDERED: DEXTROSE 50% SYRINGE 50 ML IVP PRN ×2 (21:02)
[2022-02-05] MEDS: INSULIN ASPART (NovoLOG) 100 UNIT/ML VIAL SQ SCH (21:09)
[2022-02-05] MEDS: SODIUM CHLORIDE 0.9% 1,000 ML IV SCH (21:09)
[2022-02-05 21:13] LABS: INR 1.1 (<1.2); Partial Thromboplastin Time 28.5 sec (22.0-30.0)
[2022-02-05] MEDS ORDERED: MORPHINE SULFATE 4 MG/ML SYRINGE IV ONE (21:15)
[2022-02-06] MEDS: HYDROmorphone 1 MG/ML 1 ML SYRINGE IVP PRN ×3 (00:48→15:41)
[2022-02-06] MEDS: MELATONIN 1 MG TAB PO SCH ×2 (00:48→22:39)
[2022-02-06 06:02] LABS: Glucose,Whole Blood 110 mg/dL (70-110)
[2022-02-06] MEDS: INSULIN ASPART (NovoLOG) 100 UNIT/ML VIAL SQ SCH ×4 (06:04→22:30)
[2022-02-06] MEDS: SODIUM CHLORIDE 0.9% 1,000 ML IV SCH (09:26)
--- NOTE | 2022-02-06 11:07 | P.CON ---
Consult Note - . Consult date: 02/06/22 Assessment/Plan:: Reason for consult: Left heel ulcer History chief complaint: This is an 81-year-old gentleman who is status post right BKA. He is admitted with a left hip fracture. He has a long-standing history of diabetic ulcers of the lower extremity. Besides his fracture he currently also has a large necrotic ulcer on the posterior left heel. This patient has numerous comorbidities including diabetes, chronic atrial fibrillation, and renal dysfunction as well as the numerous others listed in his admitting note. Exam: This patient has a right below knee amputation. He has the typical external rotation of the left hip from his fracture. He has no palpable pulses. However, review of his recent Doppler studies suggests adequate circulatory status for healing. He has a large blackened eschar over the left heel. On the medial aspect there is a necrotic area with dramatic undermining and necrotic tissue with purulence. Recommendation: #1: I discussed the issues in regards to the heel ulcer with Dr. Tucker and Dr. Scott. Dr. Tucker we will proceed with hip repair as he feels is indicated under the circumstances. Dr. Scott we'll see the patient tomorrow with decisions regarding debridement further decision making. #2: Until he is seen by Dr. Scott I would simply cover with an absorptive silver dressing.
[2022-02-06] MEDS ORDERED: AMINOPHYLLINE 500 MG/20 ML VIAL IV PRN (11:24)
[2022-02-06] MEDS ORDERED: CAFFEINE CITRATE 60 MG/3 ML VIAL IV PRN (11:24)
[2022-02-06] MEDS ORDERED: REGADENOSON 0.4 MG/5 ML SYRINGE IV PRN (11:24)
[2022-02-06 11:56] LABS: Glucose,Whole Blood 137 mg/dL (70-110)
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
[2022-02-06 12:35] VITALS: BMI 38.2
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
--- NOTE | 2022-02-06 12:57 | XR ---
EXAMINATION TYPE: XR foot complete LT DATE OF EXAM: 02/06/2022 COMPARISON: NONE HISTORY: Pain TECHNIQUE: Three views are submitted. FINDINGS: There is severe diffuse osteopenia. Arthropathy of all DIP joints and severe hypertrophic arthropathy of the first MTP. There is diffuse soft tissue ossification adjacent to the second and third metatar sals. There is a pes planus deformity with marked irregularity of the ankle mortise joint which could be on the basis of a Charcot joint. Vascular calcifications are seen. Soft tissue ossification or fragmentation anterior to the tibia are likely chronic. Calcaneal spur and vascular calcifications noted. No destructive changes of the calc aneus noted. There is what appears to be a linear metallic foreign body within the soft tissues of th e left heel possibly related to an injection needle. IMPRESSION: 1. Soft tissue edema predominantly involving the left heel and plantar surface. Findings are suspicio us for a small metallic foreign body which could be related to a previous needle. No destructive osse ous lesions to confirm osteomyelitis. 2. Suspect Charcot joint of the ankle talocalcaneal joint 3. Diffuse severe osteopenia with arthropathy and soft tissue ossifications as discussed above.
--- NOTE | 2022-02-06 13:30 | CA ---
Transthoracic Echo Report Name: Sanjiv Bull Age: 81 Gender: M : 1940 Exam Date: 02/06/2022 11:39 Exam Location: [facility] Ht (in): 73 Wt (lb): 290 Ordering Physician: Saundra Palacio Attending/Referring Phys: [id number], Hakeem Clipper Counters Shayla Martinez RDCS Procedure CPT: Indications: preop clearance, LVD Cardiac Hx: Technical Quality: Technically difficult study Contrast 1: Lumason Total Dose (mL): 3 Contrast 2: Total Dose (mL): MEASUREMENTS (Male / Female) Normal Values 2D ECHO LV Diastolic Diameter PLAX 4.2 cm 4.2 - 5.9 / 3.9 - 5.3 cm LV Systolic Diameter PLAX 2.4 cm IVS Diastolic Thickness 1.7 cm 0.6 - 1.0 / 0.6 - 0.9 cm LVPW Diastolic Thickness 1.6 cm 0.6 - 1.0 / 0.6 - 0.9 cm LV Relative Wall Thickness 0.8 RV Internal Dim ED PLAX 5.3 cm LA Volume 99.7 cm??? 18 - 58 / 22 - 52 cm??? M-MODE Aortic Root Diameter MM 3.5 cm LA Systolic Diameter MM 4.6 cm LA Ao Ratio MM 1.3 AV Cusp Separation MM 2.6 cm DOPPLER AV Peak Velocity 139.7 cm/s AV Peak Gradient 7.8 mmHg AV Mean Velocity 107.4 cm/s AV Mean Gradient 4.9 mmHg AV Velocity Time Integral 32.7 cm LVOT Peak Velocity 85.8 cm/s LVOT Peak Gradient 2.9 mmHg LVOT Velocity Time Integral 20.1 cm MV Area PHT 3.7 cm??? Mitral E Point Velocity 56.5 cm/s Mitral A Point Velocity 88.4 cm/s Mitral E to A Ratio 0.6 MV Deceleration Time 207.2 ms TR Peak Velocity 307.7 cm/s TR Peak Gradient 37.9 mmHg Right Ventricular Systolic Press 42.9 mmHg FINDINGS Left Ventricle Moderately increased left ventricular wall thickness. Normal left ventricular systolic function with no obvious regional wall motion abnormalities. Left ventricular ejection fraction is estimated at 55 %. Right Ventricle Severe right ventricular dilatation. Mild pulmonary hypertension. Right Atrium Right atrium not well visualized. Left Atrium Severely increased left atrial volume. Mildly increased left atrial area. Mitral Valve Mild mitral annular calcification. Mitral valve thickened. Mild mitral regurgitation. Aortic Valve Trileaflet aortic valve. Aortic valve sclerosis. No aortic valve stenosis or regurgitation. Tricuspid Valve Mild tricuspid regurgitation. Pulmonic Valve Trace pulmonic regurgitation. Pericardium No pericardial effusion. Aorta Normal size aortic root and proximal ascending aorta. CONCLUSIONS Technically difficult study for interpretation Normal left ventricular dimension and systolic function Previewed by: Dr. Karlos Adam MD (Electronically Signed) Final Date: 06 February 2022 13:30
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
[2022-02-06] MEDS ORDERED: LACTATED RINGERS 1,000 ML IV ONE (16:47)
[2022-02-06 17:10] LABS: Glucose,Whole Blood 113 mg/dL (70-110)
[2022-02-06] MEDS ORDERED: ceFAZolin 3 GM in SODIUM CHLORIDE 0.9% 100 ML IVPB PRN (17:11)
[2022-02-06] MEDS ORDERED: MAGNESIUM HYDROXIDE 2,400 MG/10 ML CUP PO PRN (17:24)
[2022-02-06] MEDS ORDERED: ACETAMINOPHEN TAB 325 MG TAB PO PRN (17:24)
[2022-02-06] MEDS ORDERED: NALOXONE 0.4 MG/ML 1 ML VIAL IV PRN (17:24)
[2022-02-06] MEDS ORDERED: HYDROcodone/APAP 5-325MG 1 EACH TAB PO PRN (17:24)
[2022-02-06] MEDS ORDERED: NA PHOS,M-B/NA PHOS,DI-BA 133 ML ENEMA RECTAL PRN (17:24)
[2022-02-06] MEDS ORDERED: bisacodyL 10 MG SUPP RECTAL PRN (17:24)
[2022-02-06] MEDS ORDERED: ONDANSETRON 4 MG/2 ML VIAL IVP PRN (17:24)
[2022-02-06] MEDS ORDERED: HYDROmorphone 0.5 MG/0.5 ML SYRINGE IVP PRN ×3 (17:24)
[2022-02-06] MEDS ORDERED: KETAMINE 10 MG/ML 20 ML VIAL ONE (17:38)
[2022-02-06] MEDS ORDERED: fentaNYL (PF) 50 MCG/ML 2 ML AMP ONE (17:38)
[2022-02-06] MEDS ORDERED: MIDAZOLAM 2 MG/2 ML VIAL ONE (17:38)
[2022-02-06] MEDS ORDERED: PHENYLEPHRINE-0.9% NACL SYG 1,000 MCG/10 ML SYRINGE ONE (17:38)
--- NOTE | 2022-02-06 19:50 | FL ---
Intraoperative/procedural fluoroscopic services were provided. Total fluoroscopy time is 1.34 minutes with a total of 5 submitted images to PACS. Please see the operative/procedural note for further det ails.
--- NOTE | 2022-02-06 20:13 | XR ---
EXAMINATION TYPE: XR Femur LT 1 View DATE OF EXAM: 02/06/2022 7:59 PM INDICATION: Patient age:Male; 81 years old; Reason for study: post op; COMPARISON: Left femur radiograph 02/05/2022 TECHNIQUE: The left femur was examined in frontal projection. FINDINGS: Left intramedullary reilly with fixation screws in place. Hardware appears in appropriate pos ition. Subcutaneous lucencies along the left lateral thigh. No evidence of acute osseous pathology, j oint dislocation, or soft tissue swelling IMPRESSION: Surgical changes with hardware in appropriate position.
[2022-02-06 22:36] LABS: Glucose,Whole Blood 139 mg/dL (70-110)
[2022-02-06] MEDS: HYDROcodone/APAP 10-325MG 1 EACH TAB PO PRN (22:39)
[2022-02-06] MEDS: SENNOSIDES-DOCUSATE SODIUM 1 EACH TAB PO SCH (22:39)
[2022-02-06] MEDS: GABAPENTIN 100 MG CAP PO SCH (22:39)
[2022-02-06] MEDS: PANTOPRAZOLE 40 MG TABLET PO SCH (22:39)
[2022-02-06] MEDS: ASPIRIN 81 MG PO SCH (22:41)
[2022-02-07 00:43] LABS: Glucose,Whole Blood 172 mg/dL (70-110)
--- NOTE | 2022-02-07 01:27 | OP ---
OPERATIVE REPORT PAINTER HELPER SPRAY: Jewel Antonio PA-C PREOPERATIVE DIAGNOSIS: Left subtrochanteric femur fracture. POSTOPERATIVE DIAGNOSIS: Left subtrochanteric femur fracture. PROCEDURE PERFORMED: Closed reduction with long intramedullary hip screw fixation for left subtrochanteric femur fracture. ANESTHESIA: General endotracheal. ESTIMATED BLOOD LOSS: 150 mL. TOURNIQUET: None. DRAINS: None. COMPLICATIONS: None apparent. DISPOSITION: Postanesthesia care unit. INDICATIONS FOR PROCEDURE: Sanjiv is a very pleasant 81-year-old male who injured his left leg yesterday after a fall. He was brought via ambulance to [facility]. Workup including x-rays revealed a left subtrochanteric femur fracture. He was admitted to my service. Sanjiv has significant medical comorbidities, which include right below-knee amputation as well as nonhealing ulcers on the left lower extremity. He lives at home with his and independently ambulates. The risks of the procedure were discussed with him in detail. These risks include, but are not limited to risk of infection, nerve damage, bleeding, pain, and a small risk of deep vein thrombosis which could lead to fatal pulmonary embolism. Further risks include hardware irritation and failure of the fracture to heal. Sanjiv had been cleared by both the Medical Service and the Cardiology Service. He was deemed at very high risk for surgery. From an anesthetic point of view, we did talk with Sanjiv about this before surgery. All of his questions with regard to the risks of procedure were answered to his satisfaction. Appropriate informed consent was obtained. DESCRIPTION OF PROCEDURE: The patient was identified in the preoperative holding area. Surgical site was marked by both the patient and myself. He was given 3 grams of Ancef IV for prophylactic purposes. He was then transported to the operative suite. He was placed supine on the operating room table. A spinal anesthetic was then administered and dosed per the Anesthesia Department without apparent complication. The patient was then placed onto the fracture table, well-padded in preparation for surgery. Fluoroscopy was then brought in. The fracture was reduced with traction and rotation. When the fracture was reduced as anatomically as possible, we proceeded. The patient's left lower extremity was then prepped and draped in the usual sterile fashion. A standard surgical pause was undertaken to ensure that we were operating the correct site and that appropriate preoperative antibiotics were given. All staff were in agreement and we proceeded. Fluoroscopy was brought in. The tip of the greater trochanter was identified. An approximate 3 to 4 cm incision starting until at the tip of the greater trochanter and extending proximally in line with the shaft of the femur was then made with a 10 blade scalpel. Dissection was carried down sharply to the tensor fascia. The tensor fascia was then incised in line with the incision. The threaded guidepin and the starting awl were then utilized to gain entrance of the proximal femur. The guidepin was then advanced. It was placed on the medial aspect of the tip of the greater trochanter. I then advanced distally down the center of the femur to the lesser trochanter. This placement was confirmed with fluoroscopic imaging. We then utilized starting reamer to gain access to the proximal femur. The threaded guidepin was then removed. The ball-tipped guidewire was then placed through the proximal opening hole in the femur. It was then manipulated until it went down the shaft of the femur. Again, this placement was confirmed with fluoroscopic imaging. I then measured for length. Given it was a subtrochanteric fracture of the femur, I did decide to use a long cephalomedullary nail. It measured for a length of 400 mm which was deemed appropriate. I then reamed the diaphysis of the femur. I started with a size 9 mm reamer and incrementally increased up to a 13 mm reamer as to accept an 11 mm nail. I then had the [employer] insurance healthcare representative open an 11 mm x 125 degree x 400 mm long gamma nail. This was assembled onto the director of home health services on the back table. The long gamma nail was then inserted over the ball-tipped guidewire and down the shaft of the femur. The ball-tipped guidewire was removed. The placement of the nail was confirmed with fluoroscopic imaging throughout its placement. I then proceeded with placement of the hip screw. A second small incision was made on the lateral thigh. The threaded guidepin was then advanced through the nail into the center of the femoral head on both AP and lateral views. The tip-apex distance was appropriate. I measured the length of 110 mm, partially-threaded cannulated hip screw was chosen. The reamer was then set at 110 mm. The threaded guidepin was then overreamed under fluoroscopic imaging. The insurance healthcare representative opened a [place] 110 mm cannulated partially-threaded hip screw. This was then inserted over the threaded guidepin deep into the center of the femoral head. His bone quality was very good. The screw had excellent purchase in bone. The tip-apex distance was appropriate after the screw was fully seated. The set screws were then tightened fully as the locked proximal screw. The traction was then let off the femur to compress the fracture site as much as possible. Again I assessed for a rotation of the distal femur. The toes were pointing straight ahead. The rotation was checked and was deemed appropriate. When I was satisfied with the rotation and the compression at the fracture site, we proceeded with locking of the nail distally. I then positioned the image intensifier in such a way as to provide perfect circles of the distal fracture site. I then placed a 5 mm x 60 mm distal locking screw which was placed through the nail and engaged both cortices of the distal femur. Again this was done and confirmed with fluoroscopic imaging. At this point, no further work was deemed necessary. The fracture was reduced nicely and it was compressed as much as possible. I had quite a bit of comminution at the fracture site. The hip screw was placed through the nail and into the center of the femoral head on both AP and lateral views. The tip-apex distance was appropriate. The rotation of the femur was evaluated and deemed appropriate. The distal locking screw was then placed through the distal oblong hole of the nail and was of appropriate length. At this point in time, no further work was deemed necessary. Three wounds were thoroughly irrigated with sterile saline solution with antibiotic added. The tensor fascia was closed with 0 Vicryl interrupted suture. The subcutaneous tissue was closed with 2-0 Vicryl interrupted suture and the skin was closed with stainless steel joel. A sterile compressive dressing was applied. All sponge and needle counts were deemed correct prior to closure. The patient tolerated the procedure without apparent complication. He was transferred to recovery room in stable condition. MMODL / IJN: [id number] /
[2022-02-07] MEDS: ceFAZolin 3 GM in SODIUM CHLORIDE 0.9% 100 ML IVPB SCH ×2 (02:53→09:11)
[2022-02-07] MEDS: SODIUM CHLORIDE 0.9% 1,000 ML IV SCH ×2 (02:53→20:20)
[2022-02-07] MEDS: INSULIN ASPART (NovoLOG) 100 UNIT/ML VIAL SQ SCH ×5 (05:38→21:54)
[2022-02-07 06:26] LABS: Glucose,Whole Blood 209 mg/dL (70-110)
--- NOTE | 2022-02-07 08:50 | P.PN ---
Subjective Progress Note Date: 02/07/22 HISTORY OF PRESENT ILLNESS This is an 81-year-old male with past history significant for hypertension, hyp erlipidemia, diabetes mellitus insulin requiring, peripheral vascular disease. 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 He is ordered to stay off his left foot and was using a walkabout to get around the home and fell. Patient was brought into [facility] emergency center and found to have an intertrochanteric fracture of the left hip and is scheduled for IM screw left hip this afternoon. We have been asked to see the patient for precardiac assessment prior to orthopedic surgery. 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 He states he had a cardiac stent done about 15 years ago. He states he has chest pressure with activity. His activity is very limited as he scoots around on a walkabout in his home only. He states last episode of chest pain/pressure was a couple weeks ago. He also had shortness of breath with minimal activity. Vascular surgery is following for possible infected left heel ulcer. EKG is a sinus rhythm with first-degree AV block, no acute ST changes Chest x-ray reveals chronic changes and cardiomegaly without acute process WBC 10, hemoglobin 12.2, platelet count 197. Electrolytes and renal function are normal with a creatinine of 1.22. Hemoglobin A1c 6.6. 02/07 Patient underwent surgical intervention yesterday. [facility]. He denies chest pain or shortness of breath. Heart rate is running between 60 and 100, blood pressure 109/56. security monitor is sinus rhythm. Echocardiogram reveals difficult study. Normal left ventricular dimension and systolic function PHYSICAL EXAMINATION Gen: This is an obese 81-year-old male, resting in bed and appears to be comfortable. VS: Heart rate in the 70s, blood pressure 120/68, pulse ox 96% on room air HEENT: Head is atraumatic, normocephalic. Pupils equal, round. Sclerae is anicteric. NECK: Supple. No JVD. No lymphadenopathy. No thyromegaly. LUNGS: Clear to auscultation. No wheezes or rhonchi. No intercostal retractions. HEART: Regular rate and rhythm. No murmur. ABDOMEN: Soft. Bowel sounds are present. No masses. No tenderness. EXTREMITIES: Right below the knee amputation. Left foot has large dressing in place. NEUROLOGICAL: Patient is awake, alert and oriented x3. Cranial nerves 2 through 12 are grossly intact. ASSESSMENT Pre-cardiac assessment prior to orthopedic surgery. Patient has multiple risk factors including poor conditioning, chest pain with limited activity, shortness of breath, diabetes Atrial fibrillation on nursing history but no documentation to support this diagnosis Diabetes mellitus Hypertension Hyperlipidemia Chronic kidney disease stage III Peripheral vascular disease with previous right below the knee amputation Obstructive sleep apnea PLAN Continue patient on current cardiac medications Cardiology we will sign off and follow patient on an as-needed basis. Please reconsult cardiology if new concerns develop. Nurse practitioner note has been reviewed, I agree with documented findings and plan of care. Patient was seen and examined. Objective - Vital Signs Vital signs: Vital Signs Temp 99.1 F 02/07/22 02:24 Pulse 69 02/07/22 02:24 Resp 18 02/07/22 02:24 BP 109/56 02/07/22 02:24 Pulse Ox 95 02/07/22 02:24 FiO2 Intake & Output 02/06/22 02/07/22 02/07/22 18:59 06:59 18:59 Intake Total 1300 100 Output Total 800 480 Balance 500 -380 Weight 131.542 kg Intake: IV 400 100 Intake, IV Titration 900 Amount Sodium Chloride 0.9% 1, 900 000 ml @ 75 mls/hr IV . [id number] [facility] Rx#:[id number] Output: Urine 800 330 Estimated Blood Loss 150 Other: Voiding Method Indwelling Catheter # Bowel Movements 0 - Labs CBC & Chem 7: 02/05/22 20:28 02/05/22 20:28 Labs: Abnormal Lab Results - Last 24 Hours (Table) 02/06/22 02/06/22 02/06/22 Range/Units 11:54 17:09 22:25 POC Glucose (mg/dL) 137 H 113 H 139 H (70-110) mg/dL 02/07/22 02/07/22 Range/Units 00:41 06:25 POC Glucose (mg/dL) 172 H 209 H (70-110) mg/dL
[2022-02-07] MEDS: GABAPENTIN 100 MG CAP PO SCH ×2 (09:10→20:21)
[2022-02-07] MEDS: ASCORBIC ACID 500 MG TAB PO SCH (09:10)
[2022-02-07] MEDS: ASPIRIN 81 MG PO SCH ×2 (09:10→20:21)
[2022-02-07] MEDS: ATORVASTATIN 20 MG TAB PO SCH (09:10)
[2022-02-07] MEDS: DULoxetine HCL 60 MG CAPSULE.DR PO SCH (09:10)
[2022-02-07] MEDS: TAMSULOSIN 0.4 MG CAP.ER.24H PO SCH (09:10)
[2022-02-07] MEDS ORDERED: oxyCODONE-APAP 10-325MG 1 EACH TAB PO PRN (09:30)
[2022-02-07] MEDS: HYDROcodone/APAP 10-325MG 1 EACH TAB PO PRN (09:35)
--- NOTE | 2022-02-07 09:58 | P.PN ---
Subjective Progress Note Date: 02/07/22 Principal diagnosis: Diabetic pressure ulcer Sanjiv was seen today as a follow-up. Yesterday he underwent closed reduction with long intramedullary hip screw fixation for left subtrochanteric femur fracture. Today patient states he does have pain in that left hip and leg. Vas cular surgery is seeing for a left heel diabetic pressure ulcer. Patient currently has opticell Silver in place. He did have some purulent drainage reported yesterday. He was given to 8 hours 2 post surgery. Patient remains afebrile. Lower extremity arterial duplex ordered somewhat limited study due to patient's movement in the inability to hold still. CINTHYA on the left 1.07. Objective - Vital Signs Vital signs: Vital Signs Temp 98.2 F 02/07/22 08:00 Pulse 83 02/07/22 08:00 Resp 17 02/07/22 08:00 BP 127/74 02/07/22 08:00 Pulse Ox 96 02/07/22 08:50 FiO2 Intake & Output 02/06/22 02/07/22 02/07/22 18:59 06:59 18:59 Intake Total 1300 100 Output Total 800 480 Balance 500 -380 Weight 131.542 kg Intake: IV 400 100 Intake, IV Titration 900 Amount Sodium Chloride 0.9% 1, 900 000 ml @ 75 mls/hr IV . [id number] [facility] Rx#:[id number] Output: Urine 800 330 Estimated Blood Loss 150 Other: Voiding Method Indwelling Catheter # Bowel Movements 0 - Exam General appearance: The patient is alert, oriented, appears in no acute distress. HET: Head is normocephalic and atraumatic. Pupils are equal and reactive. Neck: Supple. Heart: Regular. Lungs: Equal expansion, normal respiratory effort. Abdomen: Soft, nontender, nondistended. Extremities: Right [id number] amputation. Left lower extremity with Charcot ankle/foot, diabetic pressure ulcer left heel, purulent drainage noted, some nonviable tissue. Neurological: No focal deficits. Alert and oriented 3. - Labs CBC & Chem 7: 02/07/22 06:48 02/05/22 20:28 Labs: Abnormal Lab Results - Last 24 Hours (Table) 02/06/22 02/06/22 02/06/22 Range/Units 11:54 17:09 22:25 POC Glucose (mg/dL) 137 H 113 H 139 H (70-110) mg/dL 02/07/22 02/07/22 Range/Units 00:41 06:25 POC Glucose (mg/dL) 172 H 209 H (70-110) mg/dL Assessment and Plan Assessment: 1. Left heel diabetic pressure ulcer 2. Possible foreign body left heel 3. Acute communited displaced intertrochanteric fracture left proximal femur status post closed reduction with long intramedullary hip screw fixation for left subtrochanteric femur fracture 4. Diabetes mellitus 5. History of peripheral vascular disease 6. Left Charcot ankle 7. Atrial fibrillation Plan: 1. Continue with workup and surgical recommendations from orthopedics 2. Continue with Opticell silver 3. Offload pressure to left heel 4. X-ray left foot ordered and reviewed 5. Arterial duplex left lower extremity ordered and reviewed 6. Further recommendations forthcoming on possible surgical debridement of the left heel Thank you for this consultation, we will continue to follow The impression and plan of care has been dictated as directed. Dr. Yee I performed a history and examination of this patient, discussed the same with the dictator. I agree with the dictator's note ,documented as a scribe. Any additional findings or plans will be noted.
[2022-02-07] MEDS: LATANOPROST 0.005% OPHTH DROPS 2.5 ML BTL RIGHT EYE SCH (10:04)
[2022-02-07] MEDS: MULTIVITAMINS, THERA 1 EACH TAB PO SCH (11:05)
[2022-02-07] MEDS: HYDROmorphone 1 MG/ML 1 ML SYRINGE IVP PRN (11:12)
[2022-02-07 11:30] LABS: Basophils # (A) 0.03 X 10*3/uL (0.00-0.10); Basophils % (A) 0.3 %; Eosinophils # (A) 0.01 X 10*3/uL (0.04-0.35); Eosinophils % (A) 0.1 %; HCT 30.8 % (39.6-50.0); HGB 9.5 g/dL (13.0-17.0); Immature Grans, Automated 0.6 %; Lymphocytes # (A) 1.39 X 10*3/uL (0.90-5.00); Lymphocytes % (A) 11.7 %; MCH 32.2 pg (27.0-32.0); MCHC 30.8 g/dL (32.0-37.0); MCV 104.4 fL (80.0-97.0); Mean Platelet Volume 12.7 fL (9.5-12.2); Monocytes # (A) 1.25 X 10*3/uL (0.20-1.00); Monocytes % (A) 10.5 %; NRBC Per 100 WBC 0 /100 WBCS (0.0-0.0); Neutrophils # (A) 9.14 X 10*3/uL (1.80-7.70); Neutrophils % (A) 76.8 %; Platelet Count 152 X 10*3/uL (140-440); RBC 2.95 X 10*6/uL (4.40-5.60); RDW 13.7 % (11.5-14.5); WBC 11.89 X 10*3/uL (4.50-10.00)
[2022-02-07 11:55] LABS: Glucose,Whole Blood 273 mg/dL (70-110)
--- NOTE | 2022-02-07 12:55 | P.PN ---
Subjective Progress Note Date: 02/07/22 Principal diagnosis: Left hip fracture Patient is seen at bedside this morning. He is postop day #1 from left IM hip screw gamma nail for left IT femur fracture. He has pain at the surgical site as expected but denies any new complaints. He denies new numbness, tingling or calf pain. Review of systems is negative for fever, chills, chest pain, shortness of breath or other Objective - Vital Signs Vital signs: Vital Signs Temp 98.2 F 02/07/22 08:00 Pulse 83 02/07/22 08:00 Resp 17 02/07/22 08:00 BP 127/74 02/07/22 08:00 Pulse Ox 96 02/07/22 08:50 FiO2 Intake & Output 02/06/22 02/07/22 02/07/22 18:59 06:59 18:59 Intake Total 1300 100 Output Total 800 480 Balance 500 -380 Weight 131.542 kg Intake: IV 400 100 Intake, IV Titration 900 Amount Sodium Chloride 0.9% 1, 900 000 ml @ 75 mls/hr IV . [id number] [facility] Rx#:[id number] Output: Urine 800 330 Estimated Blood Loss 150 Other: Voiding Method Indwelling Catheter # Bowel Movements 0 - Exam Inspection reveals a benign surgical wound. There is no active bleeding or drainage. Neurovascular status is intact at the proximal lower extremity with motor and sensation. Distally is baseline and diminished . Calf is soft and nontender. minimal dorsalis pedis pulse and cap refill is present. Chronic wound at foot unchanged - Constitutional General appearance: Present: no acute distress - Labs CBC & Chem 7: 02/07/22 06:48 02/05/22 20:28 Labs: Abnormal Lab Results - Last 24 Hours (Table) 02/06/22 02/06/22 02/06/22 Range/Units 11:54 17:09 22:25 POC Glucose (mg/dL) 137 H 113 H 139 H (70-110) mg/dL 02/07/22 02/07/22 Range/Units 00:41 06:25 POC Glucose (mg/dL) 172 H 209 H (70-110) mg/dL Assessment and Plan (1) Closed intertrochanteric fracture of left hip Narrative/Plan: He will continue with routine postop orthopedic protocol including pain management, wound care, PT, DVT prophylaxis and medical management. Expect that he will transfer to home vs rehab in next few days Current Visit: Yes Status: Acute Priority: High Code(s): S72.142A - DISPLACED INTERTROCHANTERIC FRACTURE OF LEFT FEMUR, INIT SNOMED Code(s): 72982651 Time with Patient: Less than 30
--- NOTE | 2022-02-07 14:37 | P.PN ---
Subjective Progress Note Date: 02/07/22 This is an 81 year old male status post fall at home which has resulted in left intertrochanteric fracture. He has been nonambulatory secondary to non healing wound of the left heel and fell while using his walk about. We are asked to see the patient for medical clearance to undergo surgical repair of fracture. Patient has a medical history significant for atrial fibrillation, cardiac catheteriztion with prior cardiac stenting 15 years ago, Diabetes Mellitus type 2, hypertension, chronic kidney disease, sleep apnea, peripheral vascular disease with right below the knee amputation about 12 years ago. Patient is a former smoker and also has history of alcohol abuse currently sober for many years. He is maintained on lasix 80 mg twice a day as prophylaxis for swelling of his right stump patient does wear prosthetic. 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 and there is what appears as deep tissue injury to the right heel which is boggy and has skin breakdown. The heel does not appear to be infected, there is no surrounding erythema, patient denies any fever. Per at the bedside he is mostly bedbound. He has been seeing wound care for the last 4 weeks and the has been applying a salve. He was evaluated by wound care this admission who recommended vascular to evaluate. Vascular will evaluate the foot further post surgically. He denies seeing any other specialists outpatient, has not seen a scagliola mechanic in years. He denies chest pain and shortness of breath at rest. He does report chest pain/pressure and shortness of breath with activity, intermittent. Denies any nausea, vomiting or diarrhea. Denies dizziness or lightheadedness. Most recent echocardiogram from 2019 shows an ejection fraction of 55 to 60% with mild MR and TR. Cardiology has also been asked to evaluate the patient for surgical clearance. He appears to not be on anticoagulation outpatient. EKG on admission shows sinus rhythm with first degree AV block, heart rate 65 BMP. Atrial fibrillation is likely paroxysmal. No white count on admission, hgb 12.2, chemistry panel shows hgb a1c with blood glucose in the 110s. Calcium 8.0, alk phos 141. Creatinine 1.22. Patient is considered high operative risk given his current age and medical comorbidites, pending final clearance for surgery after cardiac evaluation. 02/07/2022 Patient is evaluated today postoperative day #1 patient underwent closed reduction with long intramedullary hip screw fixation for left subtrochanteric femur fracture. He endorses 8/10 pain to the left lateral thigh today. Sharp in nature. Dressing intact. He has pressure reduction boot in place. He had been worked up by cardiology prior to surgery and was recommended to undergo lexiscan stress test prior to surgery for clearance patient had refused stress test. He had echocardiogram done showing normal left ventricular dimension and systolic function. Mild pulmonary hypertension, mild MR and mild TR. Vascular following with possible debridement of left heel currently local wound care with betty and also had some purulent drainage. He is afebrile, heart rate 80s normal sinus rhythm, blood pressure 127/74, 96% on 3l nasal cannula. Labs reviewed today showing white count 11.89, hemoglobin 9.5, blood glucose 200s. Review of Systems Constitutional: Denied any fatigue denied any fever. Cardio vascular: denied any chest pain, palpitations Gastrointestinal: denied any nausea, vomiting, diarrhea Pulmonary: Denies shortness of breath, denies cough Neurologic denied any new focal deficits All inpatient medications were reviewed and appropriate changes in these medications as dictated in the interval history and assessment and plan. PHYSICAL EXAMINATION: GENERAL: The patient is alert and oriented x3, not in any acute distress. Well developed, well nourished. Drowsy. HEENT: Pupils are round and equally reacting to light. EOMI. No scleral icterus. No conjunctival pallor. Normocephalic, atraumatic. No pharyngeal erythema. No thyromegaly. CARDIOVASCULAR: S1 and S2 present. No murmurs, rubs, or gallops. PULMONARY: Chest is clear to auscultation, no wheezing or crackles. ABDOMEN: Soft, nontender, nondistended, normoactive bowel sounds. No palpable organomegaly. MUSCULOSKELETAL: No joint swelling or deformity. EXTREMITIES: No cyanosis, clubbing, or pedal edema. Status post right BKA. Postsurgical dressing intact to left thigh. NEUROLOGICAL: Gross neurological examination did not reveal any focal deficits. SKIN: No rashes. Left foot charcot foot, with non healing ulcer left heel. Assessment and Plan Assessment Fall with trauma with left intertrochanteric fracture of proximal femur Postoperative day #1 surgical repair with intramedullary hip screw fixation. Acute hypoxic respiratory failure postoperatively under investigation currently on 3 L nasal cannula Diabetic ulcer left heel non healing, evidence of tissues necrosis following with wound care, patient has been currently non weightbearing Diabetes Mellitus insulin dependent Hypertension, Currently normotensive Hyperlipidemia History of cardiac stenting 15 years ago Possible history of atrial fibrillation, patient is not on anticoagulation Chronic kidney disease stage III Peripheral vascular disease with prior right below the knee Obstructive Sleep apnea Medical debility Obesity Former smoker Former alcohol abuse Full code Plan Chest xray ordered Wound care/Vascular consultation Local wound care with absorptive silver to left heel Possible wound debridement Postoperative left hip with PT/OT consultation on place Monitor labs Lasix on hold Will likely need subacute rehab on discharge The impression and plan of care has been dictated by Luana Mcintosh, Nurse Practitioner as directed. Dr. Madyson MD I have performed a history and physical examination and medical decision making of this patient, discussed the same with the dictator, and agree with the dictators assessment and plan as written, documented as a scribe. Based on total visit time, I have performed more than 50% of this visit. Objective - Vital Signs Vital signs: Vital Signs Temp 98.2 F 02/07/22 08:00 Pulse 83 02/07/22 08:00 Resp 17 02/07/22 08:00 BP 127/74 02/07/22 08:00 Pulse Ox 96 02/07/22 08:50 FiO2 Intake & Output 02/06/22 02/07/22 02/07/22 18:59 06:59 18:59 Intake Total 1300 100 Output Total 800 480 Balance 500 -380 Weight 131.542 kg Intake: IV 400 100 Intake, IV Titration 900 Amount Sodium Chloride 0.9% 1, 900 000 ml @ 75 mls/hr IV . [id number] [facility] Rx#:[id number] Output: Urine 800 330 Estimated Blood Loss 150 Other: Voiding Method Indwelling Catheter Indwelling Catheter # Bowel Movements 0 - Labs CBC & Chem 7: 02/07/22 06:48 02/05/22 20:28 Labs: Abnormal Lab Results - Last 24 Hours (Table) 02/06/22 02/06/22 02/07/22 Range/Units 17:09 22:25 00:41 WBC (4.50-10.00) X 10*3/uL RBC (4.40-5.60) X 10*6/uL Hgb (13.0-17.0) g/dL Hct (39.6-50.0) % MCV (80.0-97.0) fL MCH (27.0-32.0) pg MCHC (32.0-37.0) g/dL MPV (9.5-12.2) fL Immature Gran # (0.00-0.04) X 10*3/uL Neutrophils # (1.80-7.70) X 10*3/uL Monocytes # (0.20-1.00) X 10*3/uL Eosinophils # (0.04-0.35) X 10*3/uL POC Glucose (mg/dL) 113 H 139 H 172 H (70-110) mg/dL 02/07/22 02/07/22 02/07/22 Range/Units 06:25 06:48 11:53 WBC 11.89 H (4.50-10.00) X 10*3/uL RBC 2.95 L (4.40-5.60) X 10*6/uL Hgb 9.5 L (13.0-17.0) g/dL Hct 30.8 L (39.6-50.0) % MCV 104.4 H (80.0-97.0) fL MCH 32.2 H (27.0-32.0) pg MCHC 30.8 L (32.0-37.0) g/dL MPV 12.7 H (9.5-12.2) fL Immature Gran # 0.07 H (0.00-0.04) X 10*3/uL Neutrophils # 9.14 H (1.80-7.70) X 10*3/uL Monocytes # 1.25 H (0.20-1.00) X 10*3/uL Eosinophils # 0.01 L (0.04-0.35) X 10*3/uL POC Glucose (mg/dL) 209 H 273 H (70-110) mg/dL Assessment and Plan Time with Patient: Less than 30
--- NOTE | 2022-02-07 15:21 | XR ---
EXAMINATION TYPE: XR chest 1V DATE OF EXAM: 02/07/2022 COMPARISON: 02/05/2022 HISTORY: Hypoxia TECHNIQUE: Single frontal view of the chest is obtained. FINDINGS: Heart is enlarged. Left lower lobe infiltrate. There is no pneumothorax. Arthropathy of th e shoulder diffuse osteopenia no overt failure. Hypertrophic and degenerative change of the spine. IMPRESSION: Cardiomegaly with left lower lobe infiltrate.
[2022-02-07 15:42] LABS: Glucose,Whole Blood 224 mg/dL (70-110)
[2022-02-07] MEDS: oxyCODONE-APAP 10-325MG 1 EACH TAB PO PRN (19:39)
[2022-02-07] MEDS: SENNOSIDES-DOCUSATE SODIUM 1 EACH TAB PO SCH (20:21)
[2022-02-07] MEDS: PANTOPRAZOLE 40 MG TABLET PO SCH (20:21)
[2022-02-07] MEDS: MELATONIN 1 MG TAB PO SCH (20:21)
[2022-02-07 21:53] LABS: Glucose,Whole Blood 153 mg/dL (70-110)
[2022-02-07] MEDS: INSULIN DETEMIR (LEVEMIR) 100 UNIT/ML SYR SQ SCH (22:04)
[2022-02-08] MEDS: oxyCODONE-APAP 10-325MG 1 EACH TAB PO PRN ×3 (01:41→20:24)
[2022-02-08] MEDS: SODIUM CHLORIDE 0.9% 1,000 ML IV SCH ×2 (01:43→16:31)
[2022-02-08] MEDS: traMADol 50 MG TAB PO PRN (05:33)
[2022-02-08 06:13] LABS: Glucose,Whole Blood 144 mg/dL (70-110)
[2022-02-08 07:54] LABS: African American GFR (CKD) >90 (>60 ml/min/1.73 sqM); Anion Gap 2 mmol/L; Blood Urea Nitrogen 18 mg/dL (9-20); Calcium 7.8 mg/dL (8.4-10.2); Carbon Dioxide 26 mmol/L (22-30); Chloride 108 mmol/L (98-107); Glucose 128 mg/dL (74-99); Non-African American GFR(CKD) 83 (>60 ml/min/1.73 sqM); Potassium 4.1 mmol/L (3.5-5.1); Sodium 136 mmol/L (137-145)
[2022-02-08] MEDS: INSULIN ASPART (NovoLOG) 100 UNIT/ML VIAL SQ SCH ×7 (08:16→20:25)
[2022-02-08] MEDS: DULoxetine HCL 60 MG CAPSULE.DR PO SCH (08:33)
[2022-02-08] MEDS: ASCORBIC ACID 500 MG TAB PO SCH (08:34)
[2022-02-08] MEDS: ATORVASTATIN 20 MG TAB PO SCH (08:34)
[2022-02-08] MEDS: GABAPENTIN 100 MG CAP PO SCH ×2 (08:34→20:25)
[2022-02-08] MEDS: MULTIVITAMINS, THERA 1 EACH TAB PO SCH (08:34)
[2022-02-08] MEDS: ASPIRIN 81 MG PO SCH ×2 (08:34→20:24)
[2022-02-08] MEDS: TAMSULOSIN 0.4 MG CAP.ER.24H PO SCH (08:34)
[2022-02-08] MEDS: LATANOPROST 0.005% OPHTH DROPS 2.5 ML BTL RIGHT EYE SCH (08:38)
--- NOTE | 2022-02-08 10:47 | P.PN ---
Subjective Progress Note Date: 02/08/22 Principal diagnosis: Diabetic pressure ulcer Sanjiv was seen today as a follow-up. He underwent closed reduction with long intramedullary hip screw fixation for left subtrochanteric femur fracture. Vascular surgery is seeing for a left heel diabetic pressure ulcer. Patient cu rrently has opticell Silver in place. Patient remains afebrile. Lower extremity arterial duplex ordered somewhat limited study due to patient's movement in the inability to hold still. CINTHYA on the left 1.07. He is reporting significant amount of pain in his left leg related to surgery. He is without any current other complaints at this time. Patient is really refusing to move or work with physical therapy much. Objective - Vital Signs Vital signs: Vital Signs Temp 98.6 F 02/08/22 01:56 Pulse 72 02/08/22 01:56 Resp 19 02/08/22 01:56 BP 131/54 02/08/22 01:56 Pulse Ox 92 L 02/08/22 01:56 FiO2 Intake & Output 02/07/22 02/07/22 02/08/22 06:59 18:59 06:59 Intake Total 860 347 2431 Output Total 480 465 600 Balance -380 -285 1420 Intake: IV 100 Intake, IV Titration 900 Amount Sodium Chloride 0.9% 1, 900 000 ml @ 75 mls/hr IV . [id number] [facility] Rx#:[id number] Oral 180 1120 Output: Urine 330 465 600 Estimated Blood Loss 150 Other: Voiding Method Indwelling Catheter Indwelling Catheter Indwelling Catheter - Exam General appearance: The patient is alert, oriented, appears in no acute distress. HET: Head is normocephalic and atraumatic. Pupils are equal and reactive. Neck: Supple. Extremities: Right [id number] amputation. Left lower extremity with Charcot ankle/foot. Left foot with dressing clean dry and intact with Soft Mediboot in place. Neurological: No focal deficits. Alert and oriented 3. - Labs CBC & Chem 7: 02/07/22 06:48 02/08/22 05:47 Labs: Abnormal Lab Results - Last 24 Hours (Table) 02/07/22 02/07/22 02/07/22 Range/Units 06:48 11:53 15:38 WBC 11.89 H (4.50-10.00) X 10*3/uL RBC 2.95 L (4.40-5.60) X 10*6/uL Hgb 9.5 L (13.0-17.0) g/dL Hct 30.8 L (39.6-50.0) % MCV 104.4 H (80.0-97.0) fL MCH 32.2 H (27.0-32.0) pg MCHC 30.8 L (32.0-37.0) g/dL MPV 12.7 H (9.5-12.2) fL Immature Gran # 0.07 H (0.00-0.04) X 10*3/uL Neutrophils # 9.14 H (1.80-7.70) X 10*3/uL Monocytes # 1.25 H (0.20-1.00) X 10*3/uL Eosinophils # 0.01 L (0.04-0.35) X 10*3/uL POC Glucose (mg/dL) 273 H 224 H (70-110) mg/dL 02/07/22 02/08/22 Range/Units 21:52 06:11 WBC (4.50-10.00) X 10*3/uL RBC (4.40-5.60) X 10*6/uL Hgb (13.0-17.0) g/dL Hct (39.6-50.0) % MCV (80.0-97.0) fL MCH (27.0-32.0) pg MCHC (32.0-37.0) g/dL MPV (9.5-12.2) fL Immature Gran # (0.00-0.04) X 10*3/uL Neutrophils # (1.80-7.70) X 10*3/uL Monocytes # (0.20-1.00) X 10*3/uL Eosinophils # (0.04-0.35) X 10*3/uL POC Glucose (mg/dL) 153 H 144 H (70-110) mg/dL Assessment and Plan Assessment: 1. Left heel diabetic pressure ulcer 2. Possible foreign body left heel 3. Acute communited displaced intertrochanteric fracture left proximal femur status post closed reduction with long intramedullary hip screw fixation for left subtrochanteric femur fracture 4. Diabetes mellitus 5. History of peripheral vascular disease 6. Left Charcot ankle 7. Atrial fibrillation Plan: 1. Continue recommendations from orthopedics 2. Continue with Opticell silver 3. Offload pressure to left heel 4. X-ray left foot ordered and reviewed 5. Arterial duplex left lower extremity ordered and reviewed 6. Further recommendations forthcoming on timing of possible surgical debridement of the left heel Thank you for this consultation, we will continue to follow The impression and plan of care has been dictated as directed. Dr. Scott I performed a history and examination of this patient, discussed the same with the dictator. I agree with the dictator's note ,documented as a scribe. Any additional findings or plans will be noted.
[2022-02-08 11:33] LABS: Glucose,Whole Blood 196 mg/dL (70-110)
--- NOTE | 2022-02-08 11:38 | P.PN ---
Subjective Progress Note Date: 02/08/22 Principal diagnosis: Left hip fracture Patient is seen at bedside this morning. He is postop day #2 from left IM hip screw gamma nail for left IT femur fracture. He has pain at the surgical site as expected but denies any new complaints. He denies new numbness, tingling or calf pain. Review of systems is negative for fever, chills, chest pain, shortness of breath or other Objective - Vital Signs Vital signs: Vital Signs Temp 98.1 F 02/08/22 08:31 Pulse 84 02/08/22 08:31 Resp 19 02/08/22 08:31 BP 108/60 02/08/22 08:31 Pulse Ox 96 02/08/22 09:37 FiO2 Intake & Output 02/07/22 02/08/22 02/08/22 18:59 06:59 18:59 Intake Total 180 2020 Output Total 465 600 Balance -285 1420 Intake: Intake, IV Titration 900 Amount Sodium Chloride 0.9% 1, 900 000 ml @ 75 mls/hr IV . [id number] [facility] Rx#:[id number] Oral 180 1120 Output: Urine 465 600 Other: Voiding Method Indwelling Catheter Indwelling Catheter Indwelling Catheter - Exam Inspection reveals a benign surgical wound. There is no active bleeding or drainage. Neurovascular status is intact at the proximal lower extremity with motor and sensation. Distally is baseline and diminished . Calf is soft and nontender. minimal dorsalis pedis pulse and cap refill is present. Chronic wound at foot unchanged - Constitutional General appearance: Present: no acute distress - Labs CBC & Chem 7: 02/07/22 06:48 02/08/22 05:47 Labs: Abnormal Lab Results - Last 24 Hours (Table) 02/07/22 02/07/22 02/07/22 Range/Units 11:53 15:38 21:52 Sodium (137-145) mmol/L Chloride (98-107) mmol/L Glucose (74-99) mg/dL POC Glucose (mg/dL) 273 H 224 H 153 H (70-110) mg/dL Calcium (8.4-10.2) mg/dL 02/08/22 02/08/22 02/08/22 Range/Units 05:47 06:11 11:31 Sodium 136 L (137-145) mmol/L Chloride 108 H (98-107) mmol/L Glucose 128 H (74-99) mg/dL POC Glucose (mg/dL) 144 H 196 H (70-110) mg/dL Calcium 7.8 L (8.4-10.2) mg/dL Assessment and Plan (1) Closed intertrochanteric fracture of left hip Narrative/Plan: He will continue with routine postop orthopedic protocol including pain management, wound care, PT, DVT prophylaxis and medical management. Oral Pain meds are adjusted for hopefully better pain control. Expect that he will transfer to home vs rehab in next few days Current Visit: Yes Status: Acute Priority: High Code(s): S72.142A - DISPLACED INTERTROCHANTERIC FRACTURE OF LEFT FEMUR, INIT SNOMED Code(s): 50799922 Time with Patient: Less than 30
[2022-02-08] MEDS: oxyCODONE ER 10 MG TAB.ER.12H PO SCH ×2 (12:06→20:25)
[2022-02-08 16:25] LABS: Glucose,Whole Blood 121 mg/dL (70-110)
[2022-02-08 19:33] LABS: Glucose,Whole Blood 122 mg/dL (70-110)
[2022-02-08] MEDS: MELATONIN 1 MG TAB PO SCH (20:24)
[2022-02-08] MEDS: PANTOPRAZOLE 40 MG TABLET PO SCH (20:24)
[2022-02-08] MEDS: SENNOSIDES-DOCUSATE SODIUM 1 EACH TAB PO SCH (20:24)
[2022-02-08] MEDS: INSULIN DETEMIR (LEVEMIR) 100 UNIT/ML SYR SQ SCH (20:47)
[2022-02-09] MEDS: oxyCODONE-APAP 10-325MG 1 EACH TAB PO PRN ×2 (03:32→20:39)
[2022-02-09] MEDS: SODIUM CHLORIDE 0.9% 1,000 ML IV SCH ×2 (05:26→18:08)
[2022-02-09 06:04] LABS: Glucose,Whole Blood 115 mg/dL (70-110)
[2022-02-09] MEDS: INSULIN ASPART (NovoLOG) 100 UNIT/ML VIAL SQ SCH ×7 (06:07→20:40)
--- NOTE | 2022-02-09 06:41 | US ---
EXAMINATION TYPE: US arterial LE multi level DATE OF EXAM: 02/07/2022 9:02 AM CLINICAL HISTORY: infected left heel ulcer. History of: Smoker: Yes Hypertension: Yes Patient poor historian. Patient in immense pain post op left hip. Technically difficult, very limited study. Patient has unco ntrollable movements. Patient unable to lay flat due to pain. Unable to obtain left toe pressure due patient motion. Unable to obtain popliteal waveform on right due to constant uncontrollable motion of leg. Unable to obtain popliteal waveform on left due to patient inability to move leg due to immense pain. Unable to obtain posterior tib due to patient position and immense pain. Doppler Waveforms: Right: Below knee amputation Left: Pulse Volume Recording: Pressure Gradients: Right Brachial Pressure: Below knee amputation Left Brachial Pressure: Ankle-Brachial Indices: Right: Below knee amputation Left: Toe Brachial Indices: Right: Below knee amputation Left: IMPRESSION: Nondiagnostic.
[2022-02-09] MEDS: ATORVASTATIN 20 MG TAB PO SCH (08:33)
[2022-02-09] MEDS: MULTIVITAMINS, THERA 1 EACH TAB PO SCH (08:33)
[2022-02-09] MEDS: TAMSULOSIN 0.4 MG CAP.ER.24H PO SCH (08:33)
[2022-02-09] MEDS: ASPIRIN 81 MG PO SCH ×2 (08:33→20:38)
[2022-02-09] MEDS: DULoxetine HCL 60 MG CAPSULE.DR PO SCH (08:33)
[2022-02-09] MEDS: GABAPENTIN 100 MG CAP PO SCH ×2 (08:33→20:39)
[2022-02-09] MEDS: ASCORBIC ACID 500 MG TAB PO SCH (08:33)
--- NOTE | 2022-02-09 09:35 | P.PN ---
Subjective Progress Note Date: 02/09/22 Principal diagnosis: Status post left hip screw This is a 81 year-old male post left IM long hip screw. This is post-op day 3. The patient was evaluated at the bedside today. The patient denies nausea, vomiting, abdominal pain, shortness of breath, and chest pain this morning. He states his pain is controlled at this time. The patient has not been up with physical therapy much. Objective - Vital Signs Vital signs: Vital Signs Temp 97.5 F L 02/09/22 07:49 Pulse 75 02/09/22 08:04 Resp 12 02/09/22 08:04 BP 154/71 02/09/22 07:49 Pulse Ox 97 02/09/22 08:35 FiO2 Intake & Output 02/08/22 02/09/22 02/09/22 18:59 06:59 18:59 Intake Total 1140 Output Total 200 1000 Balance -200 140 Weight 131.542 kg Intake: Intake, IV Titration 900 Amount Sodium Chloride 0.9% 1, 900 000 ml @ 75 mls/hr IV . [id number] [facility] Rx#:[id number] Oral 240 Output: Urine 200 1000 Condom 500 Stool 0 Other: Voiding Method Indwelling Catheter External Catheter Indwelling Catheter # Voids 1 - Exam The patient does not appear in acute distress. Alert and orientated x3. Dressing is clean dry and intact. Calf is soft and nontender. Ok foot and ankle motion without difficulty. Sensation and circulatory status is intact. - Labs CBC & Chem 7: 02/07/22 06:48 02/08/22 05:47 Labs: Abnormal Lab Results - Last 24 Hours (Table) 02/08/22 02/08/22 02/08/22 Range/Units 11:31 16:24 19:23 POC Glucose (mg/dL) 196 H 121 H 122 H (70-110) mg/dL 02/09/22 Range/Units 06:03 POC Glucose (mg/dL) 115 H (70-110) mg/dL Assessment and Plan (1) Closed intertrochanteric fracture of left hip Current Visit: Yes Status: Acute Priority: High Code(s): S72.142A - DISPLACED INTERTROCHANTERIC FRACTURE OF LEFT FEMUR, INIT SNOMED Code(s): 63821840 (2) Fall Current Visit: Yes Status: Acute Code(s): W19.XXXA - UNSPECIFIED FALL, INITIAL ENCOUNTER SNOMED Code(s): 4862988 Plan: 1. Continue pain control 2. Anticoagulation with Aspirin 81 mg BID 3. Continue physical therapy and ambulation. I encouraged him to get up today. 4. Nursing to change hip dressing today. 5. Anticipate discharge home vs skilled rehab
[2022-02-09] MEDS: LATANOPROST 0.005% OPHTH DROPS 2.5 ML BTL RIGHT EYE SCH (09:37)
[2022-02-09] MEDS: oxyCODONE ER 10 MG TAB.ER.12H PO SCH ×2 (09:37→20:38)
[2022-02-09 11:05] LABS: Glucose,Whole Blood 157 mg/dL (70-110)
[2022-02-09 11:53] LABS: Basophils # (A) 0.07 X 10*3/uL (0.00-0.10); Basophils % (A) 0.7 %; HCT 26.1 % (39.6-50.0); HGB 8.2 g/dL (13.0-17.0); Immature Grans, Automated 0.5 %; Lymphocytes # (A) 1.42 X 10*3/uL (0.90-5.00); Lymphocytes % (A) 14.2 %; MCH 31.9 pg (27.0-32.0); MCHC 31.4 g/dL (32.0-37.0); MCV 101.6 fL (80.0-97.0); Mean Platelet Volume 12.4 fL (9.5-12.2); Monocytes # (A) 1.04 X 10*3/uL (0.20-1.00); Monocytes % (A) 10.4 %; NRBC Per 100 WBC 0 /100 WBCS (0.0-0.0); Neutrophils # (A) 6.95 X 10*3/uL (1.80-7.70); Neutrophils % (A) 69.2 %; Platelet Count 153 X 10*3/uL (140-440); RBC 2.57 X 10*6/uL (4.40-5.60); RDW 13.7 % (11.5-14.5); WBC 10.03 X 10*3/uL (4.50-10.00)
[2022-02-09 16:33] LABS: Glucose,Whole Blood 163 mg/dL (70-110)
[2022-02-09 19:19] LABS: Glucose,Whole Blood 247 mg/dL (70-110)
[2022-02-09] MEDS: INSULIN DETEMIR (LEVEMIR) 100 UNIT/ML SYR SQ SCH (20:38)
[2022-02-09] MEDS: MELATONIN 1 MG TAB PO SCH (20:38)
[2022-02-09] MEDS: PANTOPRAZOLE 40 MG TABLET PO SCH (20:39)
[2022-02-09] MEDS: SENNOSIDES-DOCUSATE SODIUM 1 EACH TAB PO SCH (20:39)
[2022-02-10] MEDS: oxyCODONE-APAP 10-325MG 1 EACH TAB PO PRN (04:52)
[2022-02-10 06:21] LABS: Glucose,Whole Blood 134 mg/dL (70-110)
[2022-02-10] MEDS: INSULIN ASPART (NovoLOG) 100 UNIT/ML VIAL SQ SCH ×7 (06:21→21:05)
[2022-02-10] MEDS: SODIUM CHLORIDE 0.9% 1,000 ML IV SCH ×2 (07:58→21:09)
[2022-02-10] MEDS: ASPIRIN 81 MG PO SCH ×2 (08:02→21:05)
[2022-02-10] MEDS: DULoxetine HCL 60 MG CAPSULE.DR PO SCH (08:02)
[2022-02-10] MEDS: oxyCODONE ER 10 MG TAB.ER.12H PO SCH ×2 (08:02→21:05)
[2022-02-10] MEDS: GABAPENTIN 100 MG CAP PO SCH ×2 (08:02→21:05)
[2022-02-10] MEDS: ASCORBIC ACID 500 MG TAB PO SCH (08:02)
[2022-02-10] MEDS: TAMSULOSIN 0.4 MG CAP.ER.24H PO SCH (08:03)
[2022-02-10] MEDS: LATANOPROST 0.005% OPHTH DROPS 2.5 ML BTL RIGHT EYE SCH (08:03)
[2022-02-10] MEDS: ATORVASTATIN 20 MG TAB PO SCH (08:03)
--- NOTE | 2022-02-10 10:17 | P.PN ---
Subjective Progress Note Date: 02/10/22 Principal diagnosis: Status post left hip screw This is a 81 year-old male post left IM long hip screw. This is post-op day 4. The patient was evaluated at the bedside today. The patient denies nausea, vomiting, abdominal pain, shortness of breath, and chest pain this morning. He states his pain is controlled at this time. The patient has not been up with physical therapy much. Objective - Vital Signs Vital signs: Vital Signs Temp 97.5 F L 02/10/22 07:59 Pulse 76 02/10/22 07:59 Resp 18 02/10/22 07:59 BP 156/73 02/10/22 07:59 Pulse Ox 98 02/10/22 07:59 FiO2 Intake & Output 02/09/22 02/10/22 02/10/22 18:59 06:59 18:59 Intake Total 1000 1380 Output Total 850 400 Balance 150 980 Intake: Intake, IV Titration 900 Amount Sodium Chloride 0.9% 1, 900 000 ml @ 75 mls/hr IV . [id number] [facility] Rx#:[id number] Oral 1000 480 Output: Urine 850 400 Condom 400 Other: Voiding Method Indwelling Catheter External Catheter - Exam The patient does not appear in acute distress. Alert and orientated x3. Dressing is clean dry and intact. Calf is soft and nontender. Ok foot and ankle motion without difficulty. Sensation and circulatory status is intact. - Labs CBC & Chem 7: 02/09/22 06:43 02/08/22 05:47 Labs: Abnormal Lab Results - Last 24 Hours (Table) 02/09/22 02/09/22 02/09/22 Range/Units 06:43 11:03 16:31 WBC 10.03 H (4.50-10.00) X 10*3/uL RBC 2.57 L (4.40-5.60) X 10*6/uL Hgb 8.2 L (13.0-17.0) g/dL Hct 26.1 L (39.6-50.0) % MCV 101.6 H (80.0-97.0) fL MCHC 31.4 L (32.0-37.0) g/dL MPV 12.4 H (9.5-12.2) fL Immature Gran # 0.05 H (0.00-0.04) X 10*3/uL Monocytes # 1.04 H (0.20-1.00) X 10*3/uL Eosinophils # 0.50 H (0.04-0.35) X 10*3/uL POC Glucose (mg/dL) 157 H 163 H (70-110) mg/dL 02/09/22 02/10/22 Range/Units 19:18 06:20 WBC (4.50-10.00) X 10*3/uL RBC (4.40-5.60) X 10*6/uL Hgb (13.0-17.0) g/dL Hct (39.6-50.0) % MCV (80.0-97.0) fL MCHC (32.0-37.0) g/dL MPV (9.5-12.2) fL Immature Gran # (0.00-0.04) X 10*3/uL Monocytes # (0.20-1.00) X 10*3/uL Eosinophils # (0.04-0.35) X 10*3/uL POC Glucose (mg/dL) 247 H 134 H (70-110) mg/dL Assessment and Plan (1) Closed intertrochanteric fracture of left hip Current Visit: Yes Status: Acute Priority: High Code(s): S72.142A - DISPLACED INTERTROCHANTERIC FRACTURE OF LEFT FEMUR, INIT SNOMED Code(s): 33112605 (2) Fall Current Visit: Yes Status: Acute Code(s): W19.XXXA - UNSPECIFIED FALL, INITIAL ENCOUNTER SNOMED Code(s): 0854630 Plan: 1. Continue pain control 2. Anticoagulation with Aspirin 81 mg BID 3. Continue physical therapy and ambulation. I encouraged him to get up today. 4. Nursing to change hip dressing. 5. Anticipate discharge home vs skilled rehab
[2022-02-10 11:25] LABS: Glucose,Whole Blood 138 mg/dL (70-110)
[2022-02-10] MEDS: MULTIVITAMINS, THERA 1 EACH TAB PO SCH (12:25)
[2022-02-10 16:37] LABS: Glucose,Whole Blood 195 mg/dL (70-110)
[2022-02-10 20:13] LABS: Glucose,Whole Blood 172 mg/dL (70-110)
[2022-02-10] MEDS: INSULIN DETEMIR (LEVEMIR) 100 UNIT/ML SYR SQ SCH (21:05)
[2022-02-10] MEDS: PANTOPRAZOLE 40 MG TABLET PO SCH (21:06)
[2022-02-10] MEDS: SENNOSIDES-DOCUSATE SODIUM 1 EACH TAB PO SCH (21:06)
[2022-02-10] MEDS: MELATONIN 1 MG TAB PO SCH (21:06)
--- NOTE | 2022-02-10 23:01 | P.PN ---
Subjective Progress Note Date: 02/08/22 This is an 81 year old male status post fall at home which has resulted in left intertrochanteric fracture. He has been nonambulatory secondary to non healing wound of the left heel and fell while using his walk about. We are asked to see the patient for medical clearance to undergo surgical repair of fracture. Patient has a medical history significant for atrial fibrillation, cardiac catheteriztion with prior cardiac stenting 15 years ago, Diabetes Mellitus type 2, hypertension, chronic kidney disease, sleep apnea, peripheral vascular disease with right below the knee amputation about 12 years ago. Patient is a former smoker and also has history of alcohol abuse currently sober for many years. He is maintained on lasix 80 mg twice a day as prophylaxis for swelling of his right stump patient does wear prosthetic. 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 and there is what appears as deep tissue injury to the right heel which is boggy and has skin breakdown. The heel does not appear to be infected, there is no surrounding erythema, patient denies any fever. Per at the bedside he is mostly bedbound. He has been seeing wound care for the last 4 weeks and the has been applying a salve. He was evaluated by wound care this admission who recommended vascular to evaluate. Vascular will evaluate the foot further post surgically. He denies seeing any other specialists outpatient, has not seen a olericulturist in years. He denies chest pain and shortness of breath at rest. He does report chest pain/pressure and shortness of breath with activity, intermittent. Denies any nausea, vomiting or diarrhea. Denies dizziness or lightheadedness. Most recent echocardiogram from 2019 shows an ejection fraction of 55 to 60% with mild MR and TR. Cardiology has also been asked to evaluate the patient for surgical clearance. He appears to not be on anticoagulation outpatient. EKG on admission shows sinus rhythm with first degree AV block, heart rate 65 BMP. Atrial fibrillation is likely paroxysmal. No white count on admission, hgb 12.2, chemistry panel shows hgb a1c with blood glucose in the 110s. Calcium 8.0, alk phos 141. Creatinine 1.22. Patient is considered high operative risk given his current age and medical comorbidites, pending final clearance for surgery after cardiac evaluation. 02/07/2022 Patient is evaluated today postoperative day #1 patient underwent closed reduction with long intramedullary hip screw fixation for left subtrochanteric femur fracture. He endorses 8/10 pain to the left lateral thigh today. Sharp in nature. Dressing intact. He has pressure reduction boot in place. He had been worked up by cardiology prior to surgery and was recommended to undergo lexiscan stress test prior to surgery for clearance patient had refused stress test. He had echocardiogram done showing normal left ventricular dimension and systolic function. Mild pulmonary hypertension, mild MR and mild TR. Vascular following with possible debridement of left heel currently local wound care with [facility] and also had some purulent drainage. He is afebrile, heart rate 80s normal sinus rhythm, blood pressure 127/74, 96% on 3l nasal cannula. 02/08/2022 Patient is postoperative day 2. S/p IM nailing of left intertrochanteric fracture. Currently patient seems to be drowsy. No complaints of worsening pain. Controlled with medications. Patient has been afebrile. No complaints of chest pain or shortness of breath. Tolerating oral diet. Currently requiring 3 L oxygen via nasal cannula. Laboratory data showed sodium 136 potassium 4.1 chloride 108 bicarb is 26 BUN 18 and creatinine 0.84 and calcium 7.8. Chest x-ray showed cardiomegaly with left lower lobe infiltrate. Current medications reviewed. Review of Systems Constitutional: Denied any fatigue denied any fever. Cardio vascular: denied any chest pain, palpitations Gastrointestinal: denied any nausea, vomiting, diarrhea Pulmonary: Denies shortness of breath, denies cough Neurologic denied any new focal deficits All inpatient medications were reviewed and appropriate changes in these medications as dictated in the interval history and assessment and plan. PHYSICAL EXAMINATION: GENERAL: The patient is alert and oriented x3, not in any acute distress. Well developed, well nourished. Drowsy. HEENT: Pupils are round and equally reacting to light. EOMI. No scleral icterus. No conjunctival pallor. Normocephalic, atraumatic. No pharyngeal erythema. No thyromegaly. CARDIOVASCULAR: S1 and S2 present. No murmurs, rubs, or gallops. PULMONARY: Chest is clear to auscultation, no wheezing or crackles. ABDOMEN: Soft, nontender, nondistended, normoactive bowel sounds. No palpable organomegaly. MUSCULOSKELETAL: No joint swelling or deformity. EXTREMITIES: No cyanosis, clubbing, or pedal edema. Status post right BKA. Postsurgical dressing intact to left thigh. NEUROLOGICAL: Gross neurological examination did not reveal any focal deficits. SKIN: No rashes. Left foot charcot foot, with non healing ulcer left heel. Assessment and Plan Assessment Fall with trauma with left intertrochanteric fracture of proximal femur Postoperative day #2 surgical repair with intramedullary hip screw fixation. Acute hypoxic respiratory failure postoperatively under investigation currently on 3 L nasal cannula Diabetic ulcer left heel non healing, evidence of tissues necrosis following with wound care, patient has been currently non weightbearing Diabetes Mellitus insulin dependent Hypertension, Currently normotensive Hyperlipidemia History of cardiac stenting 15 years ago Possible history of atrial fibrillation, patient is not on anticoagulation Chronic kidney disease stage III Peripheral vascular disease with prior right below the knee Obstructive Sleep apnea Medical debility Obesity Former smoker Former alcohol abuse Full code Plan Chest x-ray showed cardiomegaly with left lower lobe infiltrate. Wound care/Vascular consultation Local wound care with absorptive silver to left heel Possible wound debridement Postoperative left hip with PT/OT consultation on place Monitor labs Lasix on hold Encourage incentive spirometry. Will likely need subacute rehab on discharge Objective - Vital Signs Vital signs: Vital Signs Temp 97.6 F 02/08/22 20:00 Pulse 74 02/08/22 20:00 Resp 16 02/08/22 20:00 BP 137/52 02/08/22 20:00 Pulse Ox 92 L 02/08/22 20:00 FiO2 Intake & Output 02/08/22 02/08/22 02/09/22 06:59 18:59 06:59 Intake Total 2020 Output Total 600 200 Balance 1420 -200 Weight 131.542 kg Intake: Intake, IV Titration 900 Amount Sodium Chloride 0.9% 1, 900 000 ml @ 75 mls/hr IV . [id number] [facility] Rx#:[id number] Oral 1120 Output: Urine 600 200 Stool 0 Other: Voiding Method Indwelling Catheter Indwelling Catheter External Catheter - Labs CBC & Chem 7: 02/09/22 06:43 02/08/22 05:47 Labs: Abnormal Lab Results - Last 24 Hours (Table) 02/08/22 02/08/22 02/08/22 Range/Units 05:47 06:11 11:31 Sodium 136 L (137-145) mmol/L Chloride 108 H (98-107) mmol/L Glucose 128 H (74-99) mg/dL POC Glucose (mg/dL) 144 H 196 H (70-110) mg/dL Calcium 7.8 L (8.4-10.2) mg/dL 02/08/22 02/08/22 Range/Units 16:24 19:23 Sodium (137-145) mmol/L Chloride (98-107) mmol/L Glucose (74-99) mg/dL POC Glucose (mg/dL) 121 H 122 H (70-110) mg/dL Calcium (8.4-10.2) mg/dL
--- NOTE | 2022-02-10 23:03 | P.PN ---
Subjective Progress Note Date: 02/09/22 This is an 81 year old male status post fall at home which has resulted in left intertrochanteric fracture. He has been nonambulatory secondary to non healing wound of the left heel and fell while using his walk about. We are asked to see the patient for medical clearance to undergo surgical repair of fracture. Patient has a medical history significant for atrial fibrillation, cardiac catheteriztion with prior cardiac stenting 15 years ago, Diabetes Mellitus type 2, hypertension, chronic kidney disease, sleep apnea, peripheral vascular disease with right below the knee amputation about 12 years ago. Patient is a former smoker and also has history of alcohol abuse currently sober for many years. He is maintained on lasix 80 mg twice a day as prophylaxis for swelling of his right stump patient does wear prosthetic. 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 and there is what appears as deep tissue injury to the right heel which is boggy and has skin breakdown. The heel does not appear to be infected, there is no surrounding erythema, patient denies any fever. Per at the bedside he is mostly bedbound. He has been seeing wound care for the last 4 weeks and the has been applying a salve. He was evaluated by wound care this admission who recommended vascular to evaluate. Vascular will evaluate the foot further post surgically. He denies seeing any other specialists outpatient, has not seen a gas line repairer in years. He denies chest pain and shortness of breath at rest. He does report chest pain/pressure and shortness of breath with activity, intermittent. Denies any nausea, vomiting or diarrhea. Denies dizziness or lightheadedness. Most recent echocardiogram from 2019 shows an ejection fraction of 55 to 60% with mild MR and TR. Cardiology has also been asked to evaluate the patient for surgical clearance. He appears to not be on anticoagulation outpatient. EKG on admission shows sinus rhythm with first degree AV block, heart rate 65 BMP. Atrial fibrillation is likely paroxysmal. No white count on admission, hgb 12.2, chemistry panel shows hgb a1c with blood glucose in the 110s. Calcium 8.0, alk phos 141. Creatinine 1.22. Patient is considered high operative risk given his current age and medical comorbidites, pending final clearance for surgery after cardiac evaluation. 02/07/2022 Patient is evaluated today postoperative day #1 patient underwent closed reduction with long intramedullary hip screw fixation for left subtrochanteric femur fracture. He endorses 8/10 pain to the left lateral thigh today. Sharp in nature. Dressing intact. He has pressure reduction boot in place. He had been worked up by cardiology prior to surgery and was recommended to undergo lexiscan stress test prior to surgery for clearance patient had refused stress test. He had echocardiogram done showing normal left ventricular dimension and systolic function. Mild pulmonary hypertension, mild MR and mild TR. Vascular following with possible debridement of left heel [facility] and also had some purulent drainage. He is afebrile, heart rate 80s normal sinus rhythm, blood pressure 127/74, 96% on 3l nasal cannula. 02/08/2022 Patient is postoperative day 2. S/p IM nailing of left intertrochanteric fracture. Currently patient seems to be drowsy. No complaints of worsening pain. Controlled with medications. Patient has been afebrile. No complaints of chest pain or shortness of breath. Tolerating oral diet. Currently requiring 3 L oxygen via nasal cannula. Laboratory data showed sodium 136 potassium 4.1 chloride 108 bicarb is 26 BUN 18 and creatinine 0.84 and calcium 7.8. Chest x-ray showed cardiomegaly with left lower lobe infiltrate. 02/09/2022 Patient is postoperative day 3. Resting in bed. Seems to be lethargic and sleepy. No complaints of worsening shortness of breath. No chest pain. No nausea vomiting abdominal pain. Pain is controlled. Currently requiring 2 L oxygen via nasal cannula. Titrate down to room air. Encourage incentive spirometry. Other laboratory test showed WBC 10.0 hemoglobin 8.1 platelets 153 and blood sugar is 115. Patient is tolerating oral diet. Current medications reviewed. Review of Systems Constitutional: Denied any fatigue denied any fever. Cardio vascular: denied any chest pain, palpitations Gastrointestinal: denied any nausea, vomiting, diarrhea Pulmonary: Denies shortness of breath, denies cough Neurologic denied any new focal deficits All inpatient medications were reviewed and appropriate changes in these medications as dictated in the interval history and assessment and plan. PHYSICAL EXAMINATION: GENERAL: The patient is alert and oriented x3, not in any acute distress. Well developed, well nourished. Drowsy. HEENT: Pupils are round and equally reacting to light. EOMI. No scleral icterus. No conjunctival pallor. Normocephalic, atraumatic. No pharyngeal erythema. No thyromegaly. CARDIOVASCULAR: S1 and S2 present. No murmurs, rubs, or gallops. PULMONARY: Chest is clear to auscultation, no wheezing or crackles. ABDOMEN: Soft, nontender, nondistended, normoactive bowel sounds. No palpable organomegaly. MUSCULOSKELETAL: No joint swelling or deformity. EXTREMITIES: No cyanosis, clubbing, or pedal edema. Status post right BKA. Pos tsurgical dressing intact to left thigh. NEUROLOGICAL: Gross neurological examination did not reveal any focal deficits. SKIN: No rashes. Left foot charcot foot, with non healing ulcer left heel. Assessment and Plan Assessment Fall with trauma with left intertrochanteric fracture of proximal femur Postoperative day #3 surgical repair with intramedullary hip screw fixation. Acute hypoxic respiratory failure postoperatively under investigation currently on 3 L nasal cannula Diabetic ulcer left heel non healing, evidence of tissues necrosis following with wound care, patient has been currently non weightbearing Diabetes Mellitus insulin dependent Hypertension, Currently normotensive Hyperlipidemia History of cardiac stenting 15 years ago Possible history of atrial fibrillation, patient is not on anticoagulation Chronic kidney disease stage III Peripheral vascular disease with prior right below the knee Obstructive Sleep apnea Medical debility Obesity Former smoker Former alcohol abuse Full code Plan Chest x-ray showed cardiomegaly with left lower lobe infiltrate. Wound care/Vascular consultation Local wound care with absorptive silver to left heel Possible wound debridement Postoperative left hip with PT/OT consultation on place Monitor labs Lasix on hold Encourage incentive spirometry. Will likely need subacute rehab on discharge Objective - Vital Signs Vital signs: Vital Signs Temp 98.2 F 02/09/22 19:43 Pulse 80 02/09/22 19:43 Resp 18 02/09/22 19:43 BP 131/61 02/09/22 19:43 Pulse Ox 96 02/09/22 19:43 FiO2 Intake & Output 02/09/22 02/09/22 02/10/22 06:59 18:59 06:59 Intake Total 1140 1000 Output Total 1000 850 Balance 140 150 Intake: Intake, IV Titration 900 Amount Sodium Chloride 0.9% 1, 900 000 ml @ 75 mls/hr IV . [id number] [facility] Rx#:[id number] Oral 240 1000 Output: Urine 1000 850 Condom 500 Other: Voiding Method External Catheter Indwelling Catheter External Catheter # Voids 1 - Labs CBC & Chem 7: 02/11/22 03:07 02/11/22 03:07 Labs: Abnormal Lab Results - Last 24 Hours (Table) 02/09/22 02/09/22 02/09/22 Range/Units 06:03 06:43 11:03 WBC 10.03 H (4.50-10.00) X 10*3/uL RBC 2.57 L (4.40-5.60) X 10*6/uL Hgb 8.2 L (13.0-17.0) g/dL Hct 26.1 L (39.6-50.0) % MCV 101.6 H (80.0-97.0) fL MCHC 31.4 L (32.0-37.0) g/dL MPV 12.4 H (9.5-12.2) fL Immature Gran # 0.05 H (0.00-0.04) X 10*3/uL Monocytes # 1.04 H (0.20-1.00) X 10*3/uL Eosinophils # 0.50 H (0.04-0.35) X 10*3/uL POC Glucose (mg/dL) 115 H 157 H (70-110) mg/dL 02/09/22 02/09/22 Range/Units 16:31 19:18 WBC (4.50-10.00) X 10*3/uL RBC (4.40-5.60) X 10*6/uL Hgb (13.0-17.0) g/dL Hct (39.6-50.0) % MCV (80.0-97.0) fL MCHC (32.0-37.0) g/dL MPV (9.5-12.2) fL Immature Gran # (0.00-0.04) X 10*3/uL Monocytes # (0.20-1.00) X 10*3/uL Eosinophils # (0.04-0.35) X 10*3/uL POC Glucose (mg/dL) 163 H 247 H (70-110) mg/dL
--- NOTE | 2022-02-10 23:05 | P.PN ---
Subjective Progress Note Date: 02/10/22 This is an 81 year old male status post fall at home which has resulted in left intertrochanteric fracture. He has been nonambulatory secondary to non healing wound of the left heel and fell while using his walk about. We are asked to see the patient for medical clearance to undergo surgical repair of fracture. Patient has a medical history significant for atrial fibrillation, cardiac catheteriztion with prior cardiac stenting 15 years ago, Diabetes Mellitus type 2, hypertension, chronic kidney disease, sleep apnea, peripheral vascular disease with right below the knee amputation about 12 years ago. Patient is a former smoker and also has history of alcohol abuse currently sober for many years. He is maintained on lasix 80 mg twice a day as prophylaxis for swelling of his right stump patient does wear prosthetic. 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 and there is what appears as deep tissue injury to the right heel which is boggy and has skin breakdown. The heel does not appear to be infected, there is no surrounding erythema, patient denies any fever. Per at the bedside he is mostly bedbound. He has been seeing wound care for the last 4 weeks and the has been applying a salve. He was evaluated by wound care this admission who recommended vascular to evaluate. Vascular will evaluate the foot further post surgically. He denies seeing any other specialists outpatient, has not seen a zoo caretaker in years. He denies chest pain and shortness of breath at rest. He does report chest pain/pressure and shortness of breath with activity, intermittent. Denies any nausea, vomiting or diarrhea. Denies dizziness or lightheadedness. Most recent echocardiogram from 2019 shows an ejection fraction of 55 to 60% with mild MR and TR. Cardiology has also been asked to evaluate the patient for surgical clearance. He appears to not be on anticoagulation outpatient. EKG on admission shows sinus rhythm with first degree AV block, heart rate 65 BMP. Atrial fibrillation is likely paroxysmal. No white count on admission, hgb 12.2, chemistry panel shows hgb a1c with blood glucose in the 110s. Calcium 8.0, alk phos 141. Creatinine 1.22. Patient is considered high operative risk given his current age and medical comorbidites, pending final clearance for surgery after cardiac evaluation. 02/07/2022 Patient is evaluated today postoperative day #1 patient underwent closed reduction with long intramedullary hip screw fixation for left subtrochanteric femur fracture. He endorses 8/10 pain to the left lateral thigh today. Sharp in nature. Dressing intact. He has pressure reduction boot in place. He had been worked up by cardiology prior to surgery and was recommended to undergo lexiscan stress test prior to surgery for clearance patient had refused stress test. He had echocardiogram done showing normal left ventricular dimension and systolic function. Mild pulmonary hypertension, mild MR and mild TR. Vascular following with possible debridement of left heel currently local wound care with [facility] and also had some purulent drainage. He is afebrile, heart rate 80s normal sinus rhythm, blood pressure 127/74, 96% on 3l nasal cannula. 02/08/2022 Patient is postoperative day 2. S/p IM nailing of left intertrochanteric fracture. Currently patient seems to be drowsy. No complaints of worsening pain. Controlled with medications. Patient has been afebrile. No complaints of chest pain or shortness of breath. Tolerating oral diet. Currently requiring 3 L oxygen via nasal cannula. Laboratory data showed sodium 136 potassium 4.1 chloride 108 bicarb is 26 BUN 18 and creatinine 0.84 and calcium 7.8. Chest x-ray showed cardiomegaly with left lower lobe infiltrate. 02/09/2022 Patient is postoperative day 3. Resting in bed. Seems to be lethargic and sleepy. No complaints of worsening shortness of breath. No chest pain. No nausea vomiting abdominal pain. Pain is controlled. Currently requiring 2 L oxygen via nasal cannula. Titrate down to room air. Encourage incentive spirometry. Other laboratory test showed WBC 10.0 hemoglobin 8.1 platelets 153 and blood sugar is 115. Patient is tolerating oral diet. 02/10/2022 Patient is resting in the bed. Awake alert and oriented. Mentation seems to be improved today. Postoperative day 4. Currently requiring 2 L oxygen via nasal cannula. Increase incentive spirometry. Follow-up with PT OT tomorrow. Pain is controlled with medications. No nausea vomiting abdominal pain or diarrhea. No cough or sputum production. Patient has been afebrile. Will be started back on home Lasix dose of 80 mg twice daily once blood pressure is more stable tomorrow. Also on potassium 20 mEq daily at home.. Current medications reviewed. Review of Systems Constitutional: Denied any fatigue denied any fever. Cardio vascular: denied any chest pain, palpitations Gastrointestinal: denied any nausea, vomiting, diarrhea Pulmonary: Denies shortness of breath, denies cough Neurologic denied any new focal deficits All inpatient medications were reviewed and appropriate changes in these med ications as dictated in the interval history and assessment and plan. PHYSICAL EXAMINATION: GENERAL: The patient is alert and oriented x3, not in any acute distress. Well developed, well nourished. Drowsy. HEENT: Pupils are round and equally reacting to light. EOMI. No scleral icterus. No conjunctival pallor. Normocephalic, atraumatic. No pharyngeal erythema. No thyromegaly. CARDIOVASCULAR: S1 and S2 present. No murmurs, rubs, or gallops. PULMONARY: Chest is clear to auscultation, no wheezing or crackles. ABDOMEN: Soft, nontender, nondistended, normoactive bowel sounds. No palpable organomegaly. MUSCULOSKELETAL: No joint swelling or deformity. EXTREMITIES: No cyanosis, clubbing, or pedal edema. Status post right BKA. Postsurgical dressing intact to left thigh. NEUROLOGICAL: Gross neurological examination did not reveal any focal deficits. SKIN: No rashes. Left foot charcot foot, with non healing ulcer left heel. Assessment and Plan Assessment Fall with trauma with left intertrochanteric fracture of proximal femur Postoperative day #2 surgical repair with intramedullary hip screw fixation. Acute hypoxic respiratory failure postoperatively under investigation currently on 3 L nasal cannula Diabetic ulcer left heel non healing, evidence of tissues necrosis following w ith wound care, patient has been currently non weightbearing Diabetes Mellitus insulin dependent Hypertension, Currently normotensive Hyperlipidemia History of cardiac stenting 15 years ago Possible history of atrial fibrillation, patient is not on anticoagulation Chronic kidney disease stage III Peripheral vascular disease with prior right below the knee Obstructive Sleep apnea Medical debility Obesity Former smoker Former alcohol abuse Full code Plan Chest x-ray showed cardiomegaly with left lower lobe infiltrate. Wound care/Vascular consultation Local wound care with absorptive silver to left heel Possible wound debridement Postoperative left hip with PT/OT consultation on place Monitor labs Encourage incentive spirometry. Will likely need subacute rehab on discharge Objective - Vital Signs Vital signs: Vital Signs Temp 98.8 F 02/10/22 19:48 Pulse 76 02/10/22 19:48 Resp 20 02/10/22 19:48 BP 152/71 02/10/22 19:48 Pulse Ox 97 02/10/22 19:48 FiO2 Intake & Output 02/10/22 02/10/22 02/11/22 06:59 18:59 06:59 Intake Total 1380 1565 Output Total 400 300 Balance 980 1265 Intake: Intake, IV Titration 900 825 Amount Sodium Chloride 0.9% 1, 900 825 000 ml @ 75 mls/hr IV . [id number] [facility] Rx#:[id number] Oral 480 740 Output: Urine 400 300 Condom 400 Other: Voiding Method External Catheter External Catheter External Catheter # Voids 2 # Bowel Movements 0 - Labs CBC & Chem 7: 02/09/22 06:43 02/08/22 05:47 Labs: Abnormal Lab Results - Last 24 Hours (Table) 02/10/22 02/10/22 02/10/22 Range/Units 06:20 11:23 16:30 POC Glucose (mg/dL) 134 H 138 H 195 H (70-110) mg/dL 02/10/22 Range/Units 20:11 POC Glucose (mg/dL) 172 H (70-110) mg/dL
[2022-02-11 05:58] LABS: Glucose,Whole Blood 118 mg/dL (70-110)
[2022-02-11] MEDS: INSULIN ASPART (NovoLOG) 100 UNIT/ML VIAL SQ SCH ×7 (06:23→21:50)
[2022-02-11] MEDS: TAMSULOSIN 0.4 MG CAP.ER.24H PO SCH (08:22)
[2022-02-11] MEDS: oxyCODONE ER 10 MG TAB.ER.12H PO SCH ×2 (08:22→21:49)
[2022-02-11] MEDS: DULoxetine HCL 60 MG CAPSULE.DR PO SCH (08:22)
[2022-02-11] MEDS: ATORVASTATIN 20 MG TAB PO SCH (08:22)
[2022-02-11] MEDS: ASCORBIC ACID 500 MG TAB PO SCH (08:22)
[2022-02-11] MEDS: ASPIRIN 81 MG PO SCH ×2 (08:22→21:50)
[2022-02-11] MEDS: GABAPENTIN 100 MG CAP PO SCH ×2 (08:22→21:49)
[2022-02-11 09:29] LABS: African American GFR (CKD) 103.3 (60.0-200.0); Anion Gap 6.9 mmol/L (10.00-18.00); BUN/Creat Ratio 13.71 Ratio (12.00-20.00); Blood Urea Nitrogen 9.6 mg/dL (9.0-27.0); Calcium 8.4 mg/dL (8.7-10.3); Carbon Dioxide 28.1 mmol/L (20.0-27.5); Non-African American GFR(CKD) 89.1 (60.0-200.0); Potassium 3.7 mmol/L (3.5-5.5)
[2022-02-11 10:16] LABS: Basophils # (A) 0.06 X 10*3/uL (0.00-0.10); Basophils % (A) 0.7 %; Eosinophils # (A) 0.54 X 10*3/uL (0.04-0.35); Eosinophils % (A) 6.4 %; HCT 22.4 % (39.6-50.0); HGB 7.4 g/dL (13.0-17.0); Immature Grans, Automated 0.5 %; Lymphocytes # (A) 1.84 X 10*3/uL (0.90-5.00); Lymphocytes % (A) 21.7 %; MCH 31.9 pg (27.0-32.0); MCV 96.6 fL (80.0-97.0); Mean Platelet Volume 11.1 fL (9.5-12.2); Monocytes # (A) 0.92 X 10*3/uL (0.20-1.00); Monocytes % (A) 10.8 %; NRBC Per 100 WBC 0 /100 WBCS (0.0-0.0); Neutrophils # (A) 5.09 X 10*3/uL (1.80-7.70); Neutrophils % (A) 59.9 %; Platelet Count 179 X 10*3/uL (140-440); RBC 2.32 X 10*6/uL (4.40-5.60); RDW 13.8 % (11.5-14.5); WBC 8.49 X 10*3/uL (4.50-10.00)
[2022-02-11] MEDS: LATANOPROST 0.005% OPHTH DROPS 2.5 ML BTL RIGHT EYE SCH (10:33)
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
[2022-02-11 12:04] LABS: Glucose,Whole Blood 195 mg/dL (70-110)
[2022-02-11] MEDS: MULTIVITAMINS, THERA 1 EACH TAB PO SCH (12:08)
[2022-02-11] MEDS: FUROSEMIDE 80 MG TAB PO SCH ×2 (12:11→21:50)
--- NOTE | 2022-02-11 12:25 | P.PN ---
Subjective Progress Note Date: 02/11/22 Principal diagnosis: Status post left hip screw This is a 81 year-old male post left IM long hip screw. This is post-op day 5. The patient was evaluated at the bedside today. The patient denies nausea, vomiting, abdominal pain, shortness of breath, and chest pain this morning. He states his pain is controlled at this time. The patient was sitting on the side of the bed with physical therapy this morning. Objective - Vital Signs Vital signs: Vital Signs Temp 98.3 F 02/11/22 07:19 Pulse 74 02/11/22 07:19 Resp 17 02/11/22 07:19 BP 172/54 02/11/22 07:19 Pulse Ox 97 02/11/22 07:19 FiO2 Intake & Output 02/10/22 02/11/22 02/11/22 18:59 06:59 18:59 Intake Total 1565 Output Total 300 200 Balance 1265 -200 Intake: Intake, IV Titration 825 Amount Sodium Chloride 0.9% 1, 825 000 ml @ 75 mls/hr IV . [id number] [facility] Rx#:[id number] Oral 740 Output: Urine 300 200 Other: Voiding Method External Catheter External Catheter # Voids 2 1 # Bowel Movements 0 - Exam The patient does not appear in acute distress. Alert and orientated x3. Dressing was saturated with serosanginous drainage. Dressing changed today. Calf is soft and nontender. Ok foot and ankle motion without difficulty. Sensation and circulatory status is intact. - Labs CBC & Chem 7: 02/11/22 03:07 02/11/22 03:07 Labs: Abnormal Lab Results - Last 24 Hours (Table) 02/10/22 02/10/22 02/11/22 Range/Units 16:30 20:11 03:07 RBC 2.32 L (4.40-5.60) X 10*6/uL Hgb 7.4 L (13.0-17.0) g/dL Hct 22.4 L (39.6-50.0) % Eosinophils # 0.54 H (0.04-0.35) X 10*3/uL Carbon Dioxide (20.0-27.5) mmol/L Anion Gap (10.00-18.00) mmol/L Glucose (70-110) mg/dL POC Glucose (mg/dL) 195 H 172 H (70-110) mg/dL Calcium (8.7-10.3) mg/dL 02/11/22 02/11/22 02/11/22 Range/Units 03:07 05:56 12:03 RBC (4.40-5.60) X 10*6/uL Hgb (13.0-17.0) g/dL Hct (39.6-50.0) % Eosinophils # (0.04-0.35) X 10*3/uL Carbon Dioxide 28.1 H (20.0-27.5) mmol/L Anion Gap 6.90 L (10.00-18.00) mmol/L Glucose 124 H (70-110) mg/dL POC Glucose (mg/dL) 118 H 195 H (70-110) mg/dL Calcium 8.4 L (8.7-10.3) mg/dL Assessment and Plan (1) Closed intertrochanteric fracture of left hip Current Visit: Yes Status: Acute Priority: High Code(s): S72.142A - DISPLACED INTERTROCHANTERIC FRACTURE OF LEFT FEMUR, INIT SNOMED Code(s): 42541833 (2) Fall Current Visit: Yes Status: Acute Code(s): W19.XXXA - UNSPECIFIED FALL, INITIAL ENCOUNTER SNOMED Code(s): 3767244 Plan: 1. Continue pain control 2. Anticoagulation with Aspirin 81 mg BID 3. Continue physical therapy and ambulation. I encouraged him to get up today. 4. Nursing to change hip dressing daily. 5. Anticipate discharge to skilled rehab tomorrow.
[2022-02-11] MEDS ORDERED: CALCIUM CARBONATE 500 MG CHEWABLE PO PRN (14:04)
[2022-02-11 16:49] LABS: Glucose,Whole Blood 234 mg/dL (70-110)
[2022-02-11 21:19] LABS: Glucose,Whole Blood 237 mg/dL (70-110)
[2022-02-11] MEDS: PANTOPRAZOLE 40 MG TABLET PO SCH (21:50)
[2022-02-11] MEDS: MELATONIN 1 MG TAB PO SCH (21:50)
[2022-02-11] MEDS: INSULIN DETEMIR (LEVEMIR) 100 UNIT/ML SYR SQ SCH (21:50)
[2022-02-11] MEDS: SENNOSIDES-DOCUSATE SODIUM 1 EACH TAB PO SCH (21:53)
[2022-02-12 06:19] LABS: Glucose,Whole Blood 213 mg/dL (70-110)
[2022-02-12] MEDS: INSULIN ASPART (NovoLOG) 100 UNIT/ML VIAL SQ SCH ×7 (06:26→22:04)
[2022-02-12] MEDS: ASCORBIC ACID 500 MG TAB PO SCH (09:00)
[2022-02-12] MEDS: TAMSULOSIN 0.4 MG CAP.ER.24H PO SCH (09:00)
[2022-02-12] MEDS: GABAPENTIN 100 MG CAP PO SCH ×2 (09:00→22:03)
[2022-02-12] MEDS: ATORVASTATIN 20 MG TAB PO SCH (09:00)
[2022-02-12] MEDS: DULoxetine HCL 60 MG CAPSULE.DR PO SCH (09:00)
[2022-02-12] MEDS: ASPIRIN 81 MG PO SCH ×2 (09:00→22:04)
[2022-02-12] MEDS: FUROSEMIDE 80 MG TAB PO SCH ×2 (09:01→22:05)
[2022-02-12] MEDS: oxyCODONE ER 10 MG TAB.ER.12H PO SCH ×2 (09:01→22:04)
[2022-02-12] MEDS: MULTIVITAMINS, THERA 1 EACH TAB PO SCH (09:01)
[2022-02-12] MEDS: LATANOPROST 0.005% OPHTH DROPS 2.5 ML BTL RIGHT EYE SCH (09:03)
[2022-02-12 11:14] LABS: Glucose,Whole Blood 200 mg/dL (70-110)
--- NOTE | 2022-02-12 11:44 | P.PN ---
Subjective Progress Note Date: 02/11/22 This is an 81 year old male status post fall at home which has resulted in left intertrochanteric fracture. He has been nonambulatory secondary to non healing wound of the left heel and fell while using his walk about. We are asked to see the patient for medical clearance to undergo surgical repair of fracture. Patient has a medical history significant for atrial fibrillation, cardiac catheteriztion with prior cardiac stenting 15 years ago, Diabetes Mellitus type 2, hypertension, chronic kidney disease, sleep apnea, peripheral vascular disease with right below the knee amputation about 12 years ago. Patient is a former smoker and also has history of alcohol abuse currently sober for many years. He is maintained on lasix 80 mg twice a day as prophylaxis for swelling of his right stump patient does wear prosthetic. 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 and there is what appears as deep tissue injury to the right heel which is boggy and has skin breakdown. The heel does not appear to be infected, there is no surrounding erythema, patient denies any fever. Per at the bedside he is mostly bedbound. He has been seeing wound care for the last 4 weeks and the has been applying a salve. He was evaluated by wound care this admission who recommended vascular to evaluate. Vascular will evaluate the foot further post surgically. He denies seeing any other specialists outpatient, has not seen a cosmetic dentist in years. He denies chest pain and shortness of breath at rest. He does report chest pain/pressure and shortness of breath with activity, intermittent. Denies any nausea, vomiting or diarrhea. Denies dizziness or lightheadedness. Most recent echocardiogram from 2019 shows an ejection fraction of 55 to 60% with mild MR and TR. Cardiology has also been asked to evaluate the patient for surgical clearance. He appears to not be on anticoagulation outpatient. EKG on admission shows sinus rhythm with first degree AV block, heart rate 65 BMP. Atrial fibrillation is likely paroxysmal. No white count on admission, hgb 12.2, chemistry panel shows hgb a1c with blood glucose in the 110s. Calcium 8.0, alk phos 141. Creatinine 1.22. Patient is considered high operative risk given his current age and medical comorbidites, pending final clearance for surgery after cardiac evaluation. 02/07/2022 Patient is evaluated today postoperative day #1 patient underwent closed reduction with long intramedullary hip screw fixation for left subtrochanteric femur fracture. He endorses 8/10 pain to the left lateral thigh today. Sharp in nature. Dressing intact. He has pressure reduction boot in place. He had been worked up by cardiology prior to surgery and was recommended to undergo lexiscan stress test prior to surgery for clearance patient had refused stress test. He had echocardiogram done showing normal left ventricular dimension and systolic function. Mild pulmonary hypertension, mild MR and mild TR. Vascular following with possible debridement of left heel currently local wound care with betty and also had some purulent drainage. He is afebrile, heart rate 80s normal sinus rhythm, blood pressure 127/74, 96% on 3l nasal cannula. 02/08/2022 Patient is postoperative day 2. S/p IM nailing of left intertrochanteric fracture. Currently patient seems to be drowsy. No complaints of worsening pain. Controlled with medications. Patient has been afebrile. No complaints of chest pain or shortness of breath. Tolerating oral diet. Currently requiring 3 L oxygen via nasal cannula. Laboratory data showed sodium 136 potassium 4.1 chloride 108 bicarb is 26 BUN 18 and creatinine 0.84 and calcium 7.8. Chest x-ray showed cardiomegaly with left lower lobe infiltrate. 02/09/2022 Patient is postoperative day 3. Resting in bed. Seems to be lethargic and sleepy. No complaints of worsening shortness of breath. No chest pain. No nausea vomiting abdominal pain. Pain is controlled. Currently requiring 2 L oxygen via nasal cannula. Titrate down to room air. Encourage incentive spirometry. Other laboratory test showed WBC 10.0 hemoglobin 8.1 platelets 153 and blood sugar is 115. Patient is tolerating oral diet. 02/10/2022 Patient is resting in the bed. Awake alert and oriented. Mentation seems to be improved today. Postoperative day 4. Currently requiring 2 L oxygen via nasal cannula. Increase incentive spirometry. Follow-up with PT OT tomorrow. Pain is controlled with medications. No nausea vomiting abdominal pain or diarrhea. No cough or sputum production. Patient has been afebrile. Will be started back on home Lasix dose of 80 mg twice daily once blood pressure is more stable tomorrow. Also on potassium 20 mEq daily at home.. 02/11/2022 Patient is resting in the bed. Awake alert and oriented. No complaints of chest pain or worsening shortness of breath. Foot pain is better. Wound care has seen the patient. Patient has been afebrile. No nausea vomiting or abdominal pain or diarrhea. Blood pressure is elevated today. Patient was started back on Lasix and home dose of lisinopril. Titrate oxygen to room air. Able to tolerate oral diet. No cough or sputum production. Laboratory data showed WBC 8.4 hemoglobin 7.4 and platelets 179 sodium 140 potassium 3.7 chloride 105 bicarb is 28.1 BUN 9.6 and creatinine 0.7 and blood sugar is 124. Anticipate discharge to rehab. Current medications reviewed. Review of Systems Constitutional: Denied any fatigue denied any fever. Cardio vascular: denied any chest pain, palpitations Gastrointestinal: denied any nausea, vomiting, diarrhea Pulmonary: Denies shortness of breath, denies cough Neurologic denied any new focal deficits All inpatient medications were reviewed and appropriate changes in these medications as dictated in the interval history and assessment and plan. PHYSICAL EXAMINATION: GENERAL: The patient is alert and oriented x3, not in any acute distress. Well developed, well nourished. Drowsy. HEENT: Pupils are round and equally reacting to light. EOMI. No scleral icterus. No conjunctival pallor. Normocephalic, atraumatic. No pharyngeal erythema. No thyromegaly. CARDIOVASCULAR: S1 and S2 present. No murmurs, rubs, or gallops. PULMONARY: Chest is clear to auscultation, no wheezing or crackles. ABDOMEN: Soft, nontender, nondistended, normoactive bowel sounds. No palpable organomegaly. MUSCULOSKELETAL: No joint swelling or deformity. EXTREMITIES: No cyanosis, clubbing, or pedal edema. Status post right BKA. Postsurgical dressing intact to left thigh. NEUROLOGICAL: Gross neurological examination did not reveal any focal deficits. SKIN: No rashes. Left foot charcot foot, with non healing ulcer left heel. Assessment and Plan Assessment Fall with trauma with left intertrochanteric fracture of proximal femur Postoperative day #5 surgical repair with intramedullary hip screw fixation. Acute hypoxic respiratory failure postoperatively under investigation currently on 2 L nasal cannula. Titrate down to room air. Diabetic ulcer left heel non healing, evidence of tissues necrosis following with wound care, patient has been currently non weightbearing Diabetes Mellitus insulin dependent Hypertension, blood pressure is elevated today. Start back on home regimen. Hyperlipidemia History of cardiac stenting 15 years ago Possible history of atrial fibrillation, patient is not on anticoagulation Chronic kidney disease stage III Peripheral vascular disease with prior right below the knee Obstructive Sleep apnea Medical debility Obesity Former smoker Former alcohol abuse Full code Plan Chest x-ray showed cardiomegaly with left lower lobe infiltrate. Encourage incentive spirometry. Unlikely pneumonia. Started back on Lasix. Wound care/Vascular consultation is on board. Local wound care with absorptive silver to left heel Possible wound debridement Postoperative left hip with PT/OT consultation on place Monitor labs Will likely need subacute rehab on discharge Objective - Vital Signs Vital signs: Vital Signs Temp 99.3 F 02/11/22 20:00 Pulse 72 02/11/22 20:00 Resp 20 02/11/22 20:00 BP 138/63 02/11/22 20:00 Pulse Ox 96 02/11/22 20:00 FiO2 2 02/11/22 12:57 Intake & Output 02/11/22 02/11/22 02/12/22 06:59 18:59 06:59 Output Total 200 Balance -200 Weight 131.542 kg Output: Urine 200 Other: Voiding Method External Catheter Urinal # Voids 1 4 # Bowel Movements 2 - Labs CBC & Chem 7: 02/11/22 03:07 02/11/22 03:07 Labs: Abnormal Lab Results - Last 24 Hours (Table) 02/11/22 02/11/22 02/11/22 Range/Units 03:07 03:07 05:56 RBC 2.32 L (4.40-5.60) X 10*6/uL Hgb 7.4 L (13.0-17.0) g/dL Hct 22.4 L (39.6-50.0) % Eosinophils # 0.54 H (0.04-0.35) X 10*3/uL Carbon Dioxide 28.1 H (20.0-27.5) mmol/L Anion Gap 6.90 L (10.00-18.00) mmol/L Glucose 124 H (70-110) mg/dL POC Glucose (mg/dL) 118 H (70-110) mg/dL Calcium 8.4 L (8.7-10.3) mg/dL 02/11/22 02/11/22 02/11/22 Range/Units 12:03 16:45 21:18 RBC (4.40-5.60) X 10*6/uL Hgb (13.0-17.0) g/dL Hct (39.6-50.0) % Eosinophils # (0.04-0.35) X 10*3/uL Carbon Dioxide (20.0-27.5) mmol/L Anion Gap (10.00-18.00) mmol/L Glucose (70-110) mg/dL POC Glucose (mg/dL) 195 H 234 H 237 H (70-110) mg/dL Calcium (8.7-10.3) mg/dL Assessment and Plan Time with Patient: Greater than 30
--- NOTE | 2022-02-12 12:33 | P.PN ---
Subjective Progress Note Date: 02/12/22 Principal diagnosis: Left hip fracture Patient is seen at bedside this morning. He is postop day #6 from left IM hip screw gamma nail for left IT femur fracture. He has pain at the surgical site as expected but is improved and denies any new complaints. He denies new numbness, tingling or calf pain. Review of systems is negative for fever, chills, chest pain, shortness of breath or other Objective - Vital Signs Vital signs: Vital Signs Temp 97.7 F 02/12/22 08:00 Pulse 96 02/12/22 08:00 Resp 18 02/12/22 10:27 BP 131/78 02/12/22 08:00 Pulse Ox 96 02/12/22 08:51 FiO2 2 02/11/22 12:57 Intake & Output 02/11/22 02/12/22 02/12/22 18:59 06:59 18:59 Intake Total 32 Output Total 420 Balance -388 Weight 131.542 kg Intake: Other 32 Output: Urine 420 Other: Voiding Method Urinal Urinal # Voids 4 # Bowel Movements 2 - Exam Inspection reveals a benign surgical wound. There is no active bleeding. Neurovascular status is intact at the proximal lower extremity with motor and sensation. Distally is baseline and diminished . Calf is soft and nontender. minimal dorsalis pedis pulse and cap refill is present. Chronic wound at foot unchanged - Constitutional General appearance: Present: no acute distress - Labs CBC & Chem 7: 02/11/22 03:07 02/11/22 03:07 Labs: Abnormal Lab Results - Last 24 Hours (Table) 02/11/22 02/11/22 02/12/22 Range/Units 16:45 21:18 06:18 POC Glucose (mg/dL) 234 H 237 H 213 H (70-110) mg/dL 02/12/22 Range/Units 11:13 POC Glucose (mg/dL) 200 H (70-110) mg/dL Assessment and Plan (1) Closed intertrochanteric fracture of left hip Narrative/Plan: He will continue with routine postop orthopedic protocol including pain management, wound care, PT, DVT prophylaxis and medical management. . Expect that He may transfer to rehab when approved and okay with IM Current Visit: Yes Status: Acute Priority: High Code(s): S72.142A - DISPLACED INTERTROCHANTERIC FRACTURE OF LEFT FEMUR, INIT SNOMED Code(s): 21321673 Time with Patient: Less than 30
[2022-02-12 16:43] LABS: Glucose,Whole Blood 254 mg/dL (70-110)
[2022-02-12 20:52] LABS: Glucose,Whole Blood 241 mg/dL (70-110)
[2022-02-12] MEDS: PANTOPRAZOLE 40 MG TABLET PO SCH (22:04)
[2022-02-12] MEDS: INSULIN DETEMIR (LEVEMIR) 100 UNIT/ML SYR SQ SCH (22:05)
[2022-02-12] MEDS: MELATONIN 1 MG TAB PO SCH (22:05)
[2022-02-12] MEDS: SENNOSIDES-DOCUSATE SODIUM 1 EACH TAB PO SCH (22:05)
[2022-02-13 06:16] LABS: Glucose,Whole Blood 185 mg/dL (70-110)
[2022-02-13] MEDS: INSULIN ASPART (NovoLOG) 100 UNIT/ML VIAL SQ SCH ×7 (06:37→21:37)
[2022-02-13] MEDS: oxyCODONE ER 10 MG TAB.ER.12H PO SCH ×2 (08:45→21:37)
[2022-02-13] MEDS: DULoxetine HCL 60 MG CAPSULE.DR PO SCH (08:46)
[2022-02-13] MEDS: ASCORBIC ACID 500 MG TAB PO SCH (08:46)
[2022-02-13] MEDS: ASPIRIN 81 MG PO SCH ×2 (08:46→21:37)
[2022-02-13] MEDS: GABAPENTIN 100 MG CAP PO SCH ×2 (08:46→21:38)
[2022-02-13] MEDS: MULTIVITAMINS, THERA 1 EACH TAB PO SCH (08:46)
[2022-02-13] MEDS: TAMSULOSIN 0.4 MG CAP.ER.24H PO SCH (08:46)
[2022-02-13] MEDS: ATORVASTATIN 20 MG TAB PO SCH (08:46)
[2022-02-13] MEDS: FUROSEMIDE 80 MG TAB PO SCH ×2 (08:46→21:38)
[2022-02-13] MEDS: LATANOPROST 0.005% OPHTH DROPS 2.5 ML BTL RIGHT EYE SCH (08:53)
[2022-02-13 11:56] LABS: Glucose,Whole Blood 183 mg/dL (70-110)
[2022-02-13 16:25] LABS: Glucose,Whole Blood 223 mg/dL (70-110)
--- NOTE | 2022-02-13 19:56 | P.PN ---
Subjective Progress Note Date: 02/13/22 Principal diagnosis: Left hip fracture Patient is seen at bedside this morning. He is postop day #7 from left IM hip screw gamma nail for left IT femur fracture. He has pain at the surgical site as expected but is improved and denies any new complaints. He has agreed to rehab and pending auth. He denies new numbness, tingling or calf pain. Review of systems is negative for fever, chills, chest pain, shortness of breath or other Objective - Vital Signs Vital signs: Vital Signs Temp 98.1 F 02/13/22 13:31 Pulse 94 02/13/22 13:31 Resp 16 02/13/22 13:31 BP 120/64 02/13/22 13:31 Pulse Ox 90 L 02/13/22 13:31 FiO2 2 02/11/22 12:57 Intake & Output 02/13/22 02/13/22 02/14/22 06:59 18:59 06:59 Intake Total 32 350 Output Total 1000 802 Balance -968 -452 Intake: Oral 350 Other 32 Output: Urine 1000 800 Stool 2 Other: Voiding Method Urinal Urinal - Exam Inspection reveals a benign surgical wound. There is no active bleeding. Neurovascular status is intact at the proximal lower extremity with motor and sensation. Distally is baseline and diminished . Calf is soft and nontender. minimal dorsalis pedis pulse and cap refill is present. Chronic wound at foot unchanged - Constitutional General appearance: Present: no acute distress - Labs CBC & Chem 7: 02/11/22 03:07 02/11/22 03:07 Labs: Abnormal Lab Results - Last 24 Hours (Table) 02/12/22 02/13/22 02/13/22 Range/Units 20:50 06:14 11:54 POC Glucose (mg/dL) 241 H 185 H 183 H (70-110) mg/dL 02/13/22 Range/Units 16:24 POC Glucose (mg/dL) 223 H (70-110) mg/dL Assessment and Plan (1) Closed intertrochanteric fracture of left hip Narrative/Plan: He will continue with routine postop orthopedic protocol including pain management, wound care, PT, DVT prophylaxis and medical management. .He may transfer to rehab when approved and okay with IM Current Visit: Yes Status: Acute Priority: High Code(s): S72.142A - DISPLACED INTERTROCHANTERIC FRACTURE OF LEFT FEMUR, INIT SNOMED Code(s): 21527572 Time with Patient: Less than 30
[2022-02-13 21:03] LABS: Glucose,Whole Blood 160 mg/dL (70-110)
[2022-02-13] MEDS: INSULIN DETEMIR (LEVEMIR) 100 UNIT/ML SYR SQ SCH (21:36)
[2022-02-13] MEDS: MELATONIN 1 MG TAB PO SCH (21:37)
[2022-02-13] MEDS: SENNOSIDES-DOCUSATE SODIUM 1 EACH TAB PO SCH (21:37)
[2022-02-13] MEDS: PANTOPRAZOLE 40 MG TABLET PO SCH (21:38)
[2022-02-14 06:46] LABS: Glucose,Whole Blood 148 mg/dL (70-110)
[2022-02-14] MEDS: INSULIN ASPART (NovoLOG) 100 UNIT/ML VIAL SQ SCH ×7 (06:52→21:26)
[2022-02-14] MEDS: MULTIVITAMINS, THERA 1 EACH TAB PO SCH (07:26)
[2022-02-14] MEDS: TAMSULOSIN 0.4 MG CAP.ER.24H PO SCH (07:26)
[2022-02-14] MEDS: GABAPENTIN 100 MG CAP PO SCH ×2 (07:26→21:25)
[2022-02-14] MEDS: ASPIRIN 81 MG PO SCH ×2 (07:26→21:26)
[2022-02-14] MEDS: DULoxetine HCL 60 MG CAPSULE.DR PO SCH (07:26)
[2022-02-14] MEDS: LATANOPROST 0.005% OPHTH DROPS 2.5 ML BTL RIGHT EYE SCH (07:27)
[2022-02-14] MEDS: ATORVASTATIN 20 MG TAB PO SCH (07:27)
[2022-02-14] MEDS: oxyCODONE ER 10 MG TAB.ER.12H PO SCH ×2 (07:27→21:26)
[2022-02-14] MEDS: ASCORBIC ACID 500 MG TAB PO SCH (07:27)
[2022-02-14] MEDS: FUROSEMIDE 80 MG TAB PO SCH ×2 (07:43→21:27)
[2022-02-14 11:39] LABS: Glucose,Whole Blood 198 mg/dL (70-110)
[2022-02-14 16:18] LABS: Glucose,Whole Blood 255 mg/dL (70-110)
--- NOTE | 2022-02-14 16:24 | P.DS ---
Providers Date of admission: 02/05/22 21:02 Expected date of discharge: 02/13/22 Attending physician: Raza Tucker Consults: 02/05/22 20:59 Consult Physician Stat Consulting Provider: Kathy Coughlin Consult Reason/Comments: Medical management, surgical clearance Do you want consulting provider notified?: Already Contacted 02/06/22 09:08 Consult Physician Urgent Consulting Provider: Jak Cee Consult Reason/Comments: left hip fx, cardiac clearance for surgery Do you want consulting provider notified?: Yes Primary care physician: Rosemary Gandara - Discharge Diagnosis(es) (1) Closed intertrochanteric fracture of left hip Patient was admitted to the OR on 02/06/22 to undergo IM hip screw long gamma nail for left IT femur fracture. He had suffered a fall at home resulting in left hip fracture and desired to proceed with elective surgery after given informed consent. He underwent the above procedure which he tolerated well without complication. Postoperative hospital course has remained without complication. On day of discharge he is afebrile, vital signs stable, labs within acceptable ranges, tolerating by mouth meds and diet, voiding without difficulty, positive flatus, denies abdominal pain or calf pain, pain is controlled on oral pain medication and has no new complaints. Surgical Wound is benign, neurovascular status is intact proximally, calf is soft and nontender, abdomen soft and nontender. Review of systems is negative for new numbness or tingling, fever, chills, chest pain, shortness of breath, nausea, vomiting, dizziness, headaches, slurred speech or other. Current Visit: Yes Status: Acute Priority: High Procedures: Gamma nail left IT femur fracture Patient Condition at Discharge: Fair Plan - Discharge Summary Discharge Rx Participant: No New Discharge Prescriptions: New oxyCODONE-APAP 10-325MG [Percocet 10-325 mg] 1 tab PO Q4HR PRN #42 tab PRN Reason: Pain Aspirin [Adult Low Dose Aspirin EC] 81 mg PO BID #60 tab Docusate [Colace] 100 mg PO BID #60 capsule Continue Propafenone Sr [Rythmol Sr] 450 mg PO DAILY Omeprazole [PriLOSEC] 20 mg PO HS Folic Acid 1 mg PO DAILY Fish Oil/Dha/Epa [Fish Oil 1,200 mg Fish Oil] 1,000 mg PO DAILY Travoprost [Travatan Z 0.004%] 1 drop RIGHT EYE DAILY Ferrous Sulfate [Iron (65 MG Elemental)] 325 mg PO DAILY Vitamin B Complex 1 cap PO DAILY Potassium Chloride [K-Tab ER] 20 meq PO DAILY #30 tablet.er lisinopriL [Zestril] 2.5 mg PO DAILY Glucagon Emergency Kit 1 mg SQ DIRECTED PRN PRN Reason: HYPOGLYCEMIC Tamsulosin HCl [Flomax] 0.4 mg PO DAILY Atorvastatin [Lipitor] 20 mg PO DAILY hydrALAZINE HCL [Apresoline] 100 mg PO DAILY Ascorbic Acid [Vitamin C] 500 mg PO DAILY Furosemide [Lasix] 80 mg PO BID Insulin Aspart [NovoLOG Flexpen] 4 - 8 units SQ AC-BRKFST Thiamine [Vitamin B-1] 100 mg PO DAILY@1200 30 Days #30 tab Melatonin 1 mg PO HS Insulin Aspart [NovoLOG Flexpen] 4 - 12 units SQ AC-SUPPER DULoxetine HCL [Cymbalta] 60 mg PO DAILY Gabapentin [Neurontin] 800 mg PO TID Changed Insulin Glargine [Lantus Vial] 21 unit SQ HS #0 No Action Aspirin 325 mg PO HS oxyCODONE HCL/ACETAMINOPHEN [Percocet 10-325 mg] 1 tab PO Q6HR PRN PRN Reason: Pain Discharge Medication List Aspirin 325 mg PO HS 06/17/13 [History] Fish Oil/Dha/Epa [Fish Oil 1,200 mg Fish Oil] 1,000 mg PO DAILY 06/17/13 [History] Folic Acid 1 mg PO DAILY 06/17/13 [History] Omeprazole [PriLOSEC] 20 mg PO HS 06/17/13 [History] Propafenone Sr [Rythmol Sr] 450 mg PO DAILY 06/17/13 [History] Travoprost [Travatan Z 0.004%] 1 drop RIGHT EYE DAILY 08/16/13 [History] Ferrous Sulfate [Iron (65 MG Elemental)] 325 mg PO DAILY 05/19/17 [History] Vitamin B Complex 1 cap PO DAILY 05/19/17 [History] oxyCODONE HCL/ACETAMINOPHEN [Percocet 10-325 mg] 1 tab PO Q6HR PRN 05/19/17 [History] Potassium Chloride [K-Tab ER] 20 meq PO DAILY #30 tablet.er 05/23/17 [Rx] Atorvastatin [Lipitor] 20 mg PO DAILY 04/10/18 [History] Glucagon Emergency Kit 1 mg SQ DIRECTED PRN 04/10/18 [History] Tamsulosin HCl [Flomax] 0.4 mg PO DAILY 04/10/18 [History] hydrALAZINE HCL [Apresoline] 100 mg PO DAILY 04/10/18 [History] lisinopriL [Zestril] 2.5 mg PO DAILY 04/10/18 [History] Ascorbic Acid [Vitamin C] 500 mg PO DAILY 10/01/19 [History] Furosemide [Lasix] 80 mg PO BID 10/01/19 [History] Insulin Aspart [NovoLOG Flexpen] 4 - 8 units SQ AC-BRKFST 10/01/19 [History] Thiamine [Vitamin B-1] 100 mg PO DAILY@1200 30 Days #30 tab 10/04/19 [Rx] DULoxetine HCL [Cymbalta] 60 mg PO DAILY 02/05/22 [History] Gabapentin [Neurontin] 800 mg PO TID 02/05/22 [History] Insulin Aspart [NovoLOG Flexpen] 4 - 12 units SQ AC-SUPPER 02/05/22 [History] Melatonin 1 mg PO HS 02/05/22 [History] Aspirin [Adult Low Dose Aspirin EC] 81 mg PO BID #60 tab 02/12/22 [Rx] Docusate [Colace] 100 mg PO BID #60 capsule 02/12/22 [Rx] Insulin Glargine [Lantus Vial] 21 unit SQ HS #0 02/12/22 [Rx] oxyCODONE-APAP 10-325MG [Percocet 10-325 mg] 1 tab PO Q4HR PRN #42 tab 02/12/22 [Rx] Follow up Appointment(s)/Referral(s): Rosemary Gandara DO [Primary Care Provider] - 1-2 days Raza Tucker MD [STAFF PHYSICIAN] - 02/22/22 1:45 pm (with Jewel gresham) Activity/Diet/Wound Care/Special Instructions: touchdown weightbearing keep wound clean and dry take meds as directed f/u in office joel out at post op day #14 Discharge Disposition: TRANSFER TO SNF/ECF
[2022-02-14 20:39] LABS: Glucose,Whole Blood 239 mg/dL (70-110)
[2022-02-14] MEDS: PANTOPRAZOLE 40 MG TABLET PO SCH (21:26)
[2022-02-14] MEDS: SENNOSIDES-DOCUSATE SODIUM 1 EACH TAB PO SCH (21:26)
[2022-02-14] MEDS: MELATONIN 1 MG TAB PO SCH (21:27)
[2022-02-14] MEDS: INSULIN DETEMIR (LEVEMIR) 100 UNIT/ML SYR SQ SCH (22:49)
[2022-02-15 06:26] LABS: Glucose,Whole Blood 189 mg/dL (70-110)
[2022-02-15] MEDS: INSULIN ASPART (NovoLOG) 100 UNIT/ML VIAL SQ SCH ×4 (06:40→13:23)
[2022-02-15] MEDS: FUROSEMIDE 80 MG TAB PO SCH (08:09)
[2022-02-15] MEDS: ASCORBIC ACID 500 MG TAB PO SCH (08:10)
[2022-02-15] MEDS: ASPIRIN 81 MG PO SCH (08:10)
[2022-02-15] MEDS: DULoxetine HCL 60 MG CAPSULE.DR PO SCH (08:10)
[2022-02-15] MEDS: MULTIVITAMINS, THERA 1 EACH TAB PO SCH (08:10)
[2022-02-15] MEDS: oxyCODONE ER 10 MG TAB.ER.12H PO SCH (08:10)
[2022-02-15] MEDS: ATORVASTATIN 20 MG TAB PO SCH (08:10)
[2022-02-15] MEDS: TAMSULOSIN 0.4 MG CAP.ER.24H PO SCH (08:10)
[2022-02-15] MEDS: GABAPENTIN 100 MG CAP PO SCH (08:10)
[2022-02-15] MEDS: LATANOPROST 0.005% OPHTH DROPS 2.5 ML BTL RIGHT EYE SCH (08:11)
[2022-02-15 11:35] LABS: Glucose,Whole Blood 204 mg/dL (70-110)
[2022-02-15] MEDS: traMADol 50 MG TAB PO PRN (13:22)
--- NOTE | 2022-02-15 14:54 | XR ---
EXAMINATION TYPE: XR Hip Limited 2 views LT, XR femur 2 views LT DATE OF EXAM: 02/15/2022 Comparison: 02/06/2022 Clinical History: 81-year-old male increased pain LL Findings: Left hip: Redemonstrated is a comminuted intertrochanteric fracture proximal left femur with lateral cortical d isruption. The current exam is positioned slightly differently making direct comparison difficult. Th ere appears to be a 2 cm osseous gap laterally due to some medial rotation of the greater trochanter fragment. Suspect is 7.6 cm long lateral cortical butterfly fragment. Lateral skin joel. Mild dege nerative change left hip. Antegrade intramedullary nail with screw fixation. Left femur: Small knee joint effusion is nonspecific. Antegrade intramedullary nail extending to the distal femor al metaphysis with single distal interlocking screw. Mild degenerative change medial patellofemoral c ompartments. Possible old fracture fragment from the superior lateral aspect of the patella versus ac cessory ossicle. Combined Impression: Antegrade intramedullary nail with screw fixation across the comminuted intertrochanteric fracture of the proximal left femur with lateral cortical disruption. The current exam is positioned slightly di fferently from the 02/06/2022 postoperative study making direct comparison difficult. There is a 2 cm osseous gap laterally due to some medial rotation of the greater trochanter fragment likely unchange d. A 7 cm butterfly fragment is also suggested involving the lateral cortex. Clearance for weightbear ing should be determined by orthopedic surgery.
[2022-02-15 16:09] VITALS: BP 111/62; PULSE 72; RESP 16; TEMP 97.9
--- NOTE | 2022-02-21 18:00 | CDI ---
Documentation Clarification Form Date: 02/21/2022 5:43:23 PM From: Jina Light Phone: Admit Date: 02/05/2022 9:02:00 PM Patient Name: Sanjiv uBll Visit Number: [id number] Discharge Date: 02/15/2022 5:05:00 PM ATTENTION: The Clinical Documentation Specialists (CDI) and [facility] Coding Staff appreciate your assistance in clarifying documentation. Please respond to the clarification below the line at the bottom and electronically sign. The CDI & [facility] Coding staff will review the response and follow-up if needed. Please note: Queries are made part of the Legal Health Record. If you have any questions, please contact the author of this message via ITS. Dr. Kathy Coughlin Acute hypoxic respiratory failurepostoperatively is documented per your Progress Note 02/07/22. Additional clarification regarding the cause of the post op respiratory failure is requested. Patients Admitting Diagnosis: Displaced subtrochanteric fracture of left femur Post-Operative Diagnosis: Displaced subtrochanteric fracture of left femur Procedure performed: Closedreductionwith long intramedullary hip screwfixationforleft subtrochanteric femur fracture History/Risk Factors: Diabetic ulcerleft heel non healing wnecrosis, HTN, HLD, CAD w stent, A Fib, CKD III, PVD w RBKA, ELLA, Medicaldebility, Obesity, Hx smoking & ETOH abuse Clinical Indicators: 02/06/22pulse ox 96% on room air Pulse Ox 952:24 Pulse Ox 97127:19 Treatment: under investigation currently on 3 L nasal cannula Please clarify the documentation related to post op respiratory failure, if known: [ ] Acute respiratory failure is a complication of the surgical procedure [ x ] Acute respiratory failure is an expected outcome of the patients procedure [ ] Other please specify [ ] Unable to determine (Template Last Revised: April 2020) MTDD
--- NOTE | 2022-02-21 18:14 | CDI ---
Documentation Clarification Form Date: 02/21/2022 6:02:28 PM From: Jina Light Phone: Admit Date: 02/05/2022 9:02:00 PM Patient Name: Sanjiv Bull Visit Number: [id number] Discharge Date: 02/15/2022 5:05:00 PM ATTENTION: The Clinical Documentation Specialists (CDI) and [facility] Coding Staff appreciate your assistance in clarifying documentation. Please respond to the clarification below the line at the bottom and electronically sign. The CDI & [facility] Coding staff will review the response and follow-up if needed. Please note: Queries are made part of the Legal Health Record. If you have any questions, please contact the author of this message via ITS. Dr. Kathy Coughlin There is documentation of a wound Diabetic ulcerleft heel non healing per Consult 02/06/22 and per OP Note. Additional specificity regarding the severity of the wound is requested. Patient history/risk factors: Diabetic ulcer left heel non healing w necrosis, HTN, HLD, CAD w stent, A Fib, CKD III, PVD w RBKA, ELLA, Medical debility, Obesity, Hx smoking & ETOH abuse Clinical Indicators: Wound assessment: non healing, evidence of tissuesnecrosis Treatment: patient has been currently non weight bearing Consults: Vascular- [facility]woundcare with absorptive silver to left heel; Monitor labs. The patient is being evaluated at [facility] and I believe continuation of his care in [facility] is quite appropriate. Wound carehas seen the patient. Please clarify the severity of the Diabetic ulcerleft heel: [ ] Limited to breakdown of skin [ ] With fat layer exposed [ ] With necrosis of muscle [ ] With necrosis of bone [ ] Other, Please specify [ x ] Unable to determine (Template Last Revised: April 2020) MTDD
== END 2022-02-15 17:05 | DRG 480 ==
LOC: EC 19:34 → 4SSUR 21:02
PROVIDERS: ADMIT Orthopaedic Surgery Sports Medicine; ATTEND Orthopaedic Surgery Sports Medicine
PROC: 0QS736Z Reposition Left Upper Femur with Intramedullary Internal Fixation Device, Percutaneous Approach (ICD-10-PCS; principal; 2022-02-06 09:30)
DX: S72.22XA Displaced subtrochanteric fracture of left femur, initial encounter for closed fracture (principal); J96.01 Acute respiratory failure with hypoxia; D84.9 Immunodeficiency, unspecified; I70.262 Atherosclerosis of native arteries of extremities with gangrene, left leg; E11.52 Type 2 diabetes mellitus with diabetic peripheral angiopathy with gangrene; L97.429 Non-pressure chronic ulcer of left heel and midfoot with unspecified severity; I48.20 Chronic atrial fibrillation, unspecified; E11.610 Type 2 diabetes mellitus with diabetic neuropathic arthropathy; I27.20 Pulmonary hypertension, unspecified; D63.1 Anemia in chronic kidney disease; E83.51 Hypocalcemia; Z68.38 Body mass index [BMI] 38.0-38.9, adult; E11.42 Type 2 diabetes mellitus with diabetic polyneuropathy; E11.22 Type 2 diabetes mellitus with diabetic chronic kidney disease; E11.51 Type 2 diabetes mellitus with diabetic peripheral angiopathy without gangrene; E11.622 Type 2 diabetes mellitus with other skin ulcer; E11.621 Type 2 diabetes mellitus with foot ulcer; I13.10 Hypertensive heart and chronic kidney disease without heart failure, with stage 1 through stage 4 chronic kidney disease, or unspecified chronic kidney disease; E66.9 Obesity, unspecified; F10.11 Alcohol abuse, in remission; N18.30 Chronic kidney disease, stage 3 unspecified; I44.0 Atrioventricular block, first degree; H91.90 Unspecified hearing loss, unspecified ear; H40.9 Unspecified glaucoma; H54.61 Unqualified visual loss, right eye, normal vision left eye; E78.5 Hyperlipidemia, unspecified; G47.33 Obstructive sleep apnea (adult) (pediatric); R53.81 Other malaise; W18.30XA Fall on same level, unspecified, initial encounter; N18.32 Chronic kidney disease, stage 3b; N40.0 Benign prostatic hyperplasia without lower urinary tract symptoms; I08.3 Combined rheumatic disorders of mitral, aortic and tricuspid valves; Z87.891 Personal history of nicotine dependence; Z79.4 Long term (current) use of insulin; Z79.82 Long term (current) use of aspirin; Z95.5 Presence of coronary angioplasty implant and graft; Z87.39 Personal history of other diseases of the musculoskeletal system and connective tissue; Z86.14 Personal history of Methicillin resistant Staphylococcus aureus infection; Z79.899 Other long term (current) drug therapy; Z89.511 Acquired absence of right leg below knee; Z97.13 Presence of artificial right leg (complete) (partial); Z88.8 Allergy status to other drugs, medicaments and biological substances; Z88.1 Allergy status to other antibiotic agents; Z91.018 Allergy to other foods; Y92.009 Unspecified place in unspecified non-institutional (private) residence as the place of occurrence of the external cause
CPT/HCPCS: 36415; 71045; 73501; 73502; 80048; 80053; 83036; 83690; 85025; 85610; 85730; 86850; 86900; 86901; 93005; 93306; 93922; 94760; 96361; 96374; 96375; 96376; 99285

== ENCOUNTER 2023-04-12 21:24 | Inpatient (IN) | payer MEDICARE ==
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
[2023-04-12 21:52] LABS: HCT 35.8 % (39.0-53.0); HGB 11.9 gm/dL (13.0-17.5); MCH 30.6 pg (25.0-35.0); MCHC 33.3 g/dL (31.0-37.0); MCV 91.9 fL (80.0-100.0); Platelet Count 300 k/uL (150-450); RDW 13.5 % (11.5-15.5); WBC 18.2 k/uL (3.8-10.6)
[2023-04-12 22:03] LABS: ALT 23 U/L (4-49); AST 24 U/L (17-59); African American GFR (CKD) >90 (>60 ml/min/1.73 sqM); Alkaline Phosphatase 166 U/L (38-126); Anion Gap 6 mmol/L; Blood Urea Nitrogen 14 mg/dL (9-20); Carbon Dioxide 26 mmol/L (22-30); Chloride 101 mmol/L (98-107); Glucose 166 mg/dL (74-99); Non-African American GFR(CKD) 90 (>60 ml/min/1.73 sqM); Potassium 4.1 mmol/L (3.5-5.1); Sodium 133 mmol/L (137-145); Total Bilirubin 0.6 mg/dL (0.2-1.3); Total Protein 6.6 g/dL (6.3-8.2)
[2023-04-12] MEDS ORDERED: VANCOMYCIN IV PER PHARMACY 1 EACH MISC MISCELLANE PRN (22:09)
[2023-04-12] MEDS ORDERED: NALOXONE 0.4 MG/ML 1 ML VIAL IV PRN (22:10)
[2023-04-12] MEDS ORDERED: DEXTROSE 50% SYRINGE 50 ML IVP PRN ×2 (22:18)
[2023-04-12] MEDS: CLINDAMYCIN 600 MG in DEXTROSE 5% IN WATER 50 ML IVPB STA (22:30)
[2023-04-12] MEDS: SODIUM CHLORIDE 0.9% 1,000 ML IV SCH (22:31)
[2023-04-12] MEDS: ACETAMINOPHEN TAB 500 MG TAB PO STA (22:31)
--- NOTE | 2023-04-12 22:34 | CT ---
EXAMINATION TYPE: CT soft tissue neck w con DATE OF EXAM: 04/12/2023 HISTORY: pt scratched his lt side of neck 2 weeks ago and has worsening abscess. seen by dr before wh o lanced it. COMPARISON: NONE CT DLP: 300.9 mGycm. Automated Exposure Control for Dose Reduction was Utilized. TECHNIQUE: CT scan of the neck is performed with IV Contrast, patient injected with 100 mL of Isovue 300, axial images are obtained, coronal and sagittal reformatted images are reviewed. FINDINGS: Airway: No gross abnormality seen. Parotid/submandibular glands: Prominent lymph nodes in the left parotid gland. Carotid/Vascular Structures: Moderate to severe mixed plaque right carotid bulb extends into the prox imal internal carotid artery, significant stenosis is suspected . Moderate calcified plaque left carbajal tid bulb and proximal internal carotid artery without significant stenosis. Basilar dilatation distal vertebral arteries. Osseous Structures: Multilevel spurring is present. There is moderate disc space narrowing at C3-C4 l evel. Other: Bilateral aphakia is seen. There is ill-defined fluid and fat stranding along the posterior left neck from the skull base extend ing to the level of the hyoid bone. No well-formed thick-walled fluid collection or drainable abscess currently. No bony destruction. Prominent reactive subcentimeter lymph nodes throughout the left nec k are seen. IMPRESSION: Significant subcutaneous inflammatory change involving the posterior left neck consistent with phlegmon. No well formed thick walled drainable abscess currently. Reactive adenopathy is prese nt.
[2023-04-12] MEDS: VANCOMYCIN 1,750 MG in SODIUM CHLORIDE 0.9% 500 ML 500 ML IVPB STA (23:23)
[2023-04-13 05:17] LABS: Glucose,Whole Blood 175 mg/dL (70-110)
[2023-04-13] MEDS: INSULIN ASPART (NovoLOG) 100 UNIT/ML VIAL SQ SCH ×3 (06:55→17:36)
[2023-04-13] MEDS ORDERED: ONDANSETRON 4 MG/2 ML VIAL IVP PRN (08:39)
[2023-04-13 11:50] LABS: Glucose,Whole Blood 229 mg/dL (70-110)
[2023-04-13] MEDS: VANCOMYCIN 1,750 MG in SODIUM CHLORIDE 0.9% 500 ML 500 ML IVPB SCH ×2 (12:44→23:06)
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
[2023-04-13 16:58] LABS: Glucose,Whole Blood 180 mg/dL (70-110)
[2023-04-13 20:56] LABS: Glucose,Whole Blood 206 mg/dL (70-110)
[2023-04-13] MEDS: ATORVASTATIN 20 MG TAB PO SCH (21:33)
[2023-04-13] MEDS: TAMSULOSIN 0.4 MG CAP.ER.24H PO SCH (21:33)
[2023-04-13] MEDS: BRIMONIDINE TARTRATE 0.2% DROPS 5 ML BTL BOTH EYES SCH (21:34)
[2023-04-14 05:40] LABS: Glucose,Whole Blood 172 mg/dL (70-110)
[2023-04-14 05:50] LABS: African American GFR (CKD) >90 (>60 ml/min/1.73 sqM); Anion Gap 4 mmol/L; Blood Urea Nitrogen 11 mg/dL (9-20); Calcium 8.8 mg/dL (8.4-10.2); Carbon Dioxide 25 mmol/L (22-30); Chloride 109 mmol/L (98-107); Glucose 172 mg/dL (74-99); Non-African American GFR(CKD) >90 (>60 ml/min/1.73 sqM); Potassium 3.9 mmol/L (3.5-5.1); Sodium 138 mmol/L (137-145)
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
[2023-04-14 08:29] LABS: HCT 34.1 % (39.6-50.0); HGB 10.9 g/dL (13.0-17.0); Lymphocytes # (A) 1.95 X 10*3/uL (0.90-5.00); Lymphocytes % (A) 19.5 %; MCH 29.3 pg (27.0-32.0); MCV 91.7 FL (80.0-97.0); Mean Platelet Volume 10.3 FL (9.5-12.2); NRBC Per 100 WBC 0 X 10*3/uL (0.00-0.01); Neutrophils # (A) 6.19 X 10*3/uL (1.80-7.70); Neutrophils % (A) 61.7 %; Platelet Count 321 X 10*3/uL (140-440); RBC 3.72 X 10*6/uL (4.40-5.60); RDW 13.6 % (11.5-14.5); WBC 10.02 X 10*3/uL (4.50-10.00)
[2023-04-14] MEDS: ENOXAPARIN 40 MG/0.4 ML SYRINGE SQ SCH (08:33)
[2023-04-14] MEDS: THIAMINE 100 MG TAB PO SCH (08:36)
[2023-04-14] MEDS: FERROUS SULFATE 325 MG TAB PO SCH (08:36)
[2023-04-14] MEDS: ASCORBIC ACID 500 MG TAB PO SCH (08:36)
[2023-04-14] MEDS: hydrALAZINE HCL 50 MG TAB PO SCH (08:36)
[2023-04-14] MEDS: FOLIC ACID 1 MG TAB PO SCH (08:36)
[2023-04-14] MEDS: DULoxetine HCL 60 MG CAPSULE.DR PO SCH (08:36)
[2023-04-14] MEDS: PROPAFENONE 150 MG TAB PO SCH (08:37)
[2023-04-14] MEDS: ASPIRIN 325 MG TAB PO SCH (08:37)
[2023-04-14] MEDS ORDERED: NON FORMULARY DRUG (Vitamin B Complex [Vitamin B Complex] 1 EACH Capsule) PO SCH (09:00)
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
[2023-04-14 11:42] LABS: Glucose,Whole Blood 204 mg/dL (70-110)
--- NOTE | 2023-04-14 12:19 | P.PN ---
Subjective Progress Note Date: 04/14/23 * 83-year-old gentleman with past medical history significant for diabetes mellitus, history of coronary artery disease, history of chronic kidney disease, vascular disease, hypertension, hyperlipidemia, 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 Patient states symptom onset was 2 weeks prior to presentation. Patient states he is followed up with outpatient vascular team who ordered drainage. Prior to presentation patient has not been on oral antibiotic. Patient was made to come to the emergency secondary to pleural drainage noted and bleeding noted from the site. * Workup initiated in ER include WBC count of 18.2 hemoglobin 11.9 platelet count of 300, serum chemistry shows sodium 133 potassium 4.1, dioxide 26 BUN 14 creatinine 0.67 glucose 166 * Serum albumin of 3, alkaline phosphatase 166 * Patient was given IV clindamycin and vancomycin, started on fluid resuscitation and admitted to medical floor with consultation from vascular surgery and infectious disease * 04/14/23: Patient seen and evaluated bedside, on evaluation patient is awake and alert, continue current antibiotic regimen plan to the OR with surgery for wound debridement. Continue to monitor WBC count of 10.2 hemoglobin 10.9 creatinine within normal limits REVIEW OF SYSTEMS: Neck swelling, drainage, bleeding from incision and drainage site CONSTITUTIONAL: No fever, no malaise, no fatigue. HEENT: No recent visual problems or hearing problems. Denied any sore throat. CARDIOVASCULAR: No chest pain, orthopnea, PND, no palpitations, no syncope. PULMONARY: No shortness of breath, no cough, no hemoptysis. GASTROINTESTINAL: No diarrhea, no nausea, no vomiting, no abdominal pain. NEUROLOGICAL: No headaches, no weakness, no numbness. HEMATOLOGICAL: Denies any bleeding or petechiae. GENITOURINARY: Denies any burning micturition, frequency, or urgency. MUSCULOSKELETAL/RHEUMATOLOGICAL: Denies any joint pain, swelling, or any muscle pain. ENDOCRINE: Denies any polyuria or polydipsia. PHYSICAL EXAMINATION: GENERAL: The patient is alert and oriented x3,. HEENT: Pupils are round and equally reacting to light. Left neck swelling, purulent drainage CARDIOVASCULAR: S1 and S2 present. No murmurs, rubs, or gallops. PULMONARY: Chest is clear to auscultation, no wheezing or crackles. ABDOMEN: Soft, nontender, nondistended, normoactive bowel sounds. No palpable organomegaly. MUSCULOSKELETAL: No joint swelling or deformity. EXTREMITIES: No cyanosis, clubbing, or pedal edema. NEUROLOGICAL: Gross neurological examination did not reveal any focal deficits. SKIN: No rashes. Objective - Vital Signs Vital signs: Vital Signs Temp 98.1 F 04/14/23 07:28 Pulse 71 04/14/23 07:28 Resp 17 04/14/23 07:28 BP 158/82 04/14/23 07:28 Pulse Ox 96 04/14/23 07:50 FiO2 21 04/14/23 07:50 Intake & Output 04/13/23 04/14/23 04/14/23 18:59 06:59 18:59 Intake Total 354 Balance 354 Intake: Oral 354 Other: Voiding Method Urinal Urinal Urinal # Voids 3 - Labs CBC & Chem 7: 04/14/23 04:44 04/14/23 04:44 Labs: Abnormal Lab Results - Last 24 Hours (Table) 04/13/23 04/13/23 04/14/23 Range/Units 16:57 20:54 04:44 WBC (4.50-10.00) X 10*3/uL RBC (4.40-5.60) X 10*6/uL Hgb (13.0-17.0) g/dL Hct (39.6-50.0) % Immature Gran # (0.00-0.04) X 10*3/uL Eosinophils # (0.04-0.35) X 10*3/uL Chloride 109 H (98-107) mmol/L Glucose 172 H (74-99) mg/dL POC Glucose (mg/dL) 180 H 206 H (70-110) mg/dL 04/14/23 04/14/23 04/14/23 Range/Units 04:44 05:39 11:40 WBC 10.02 H (4.50-10.00) X 10*3/uL RBC 3.72 L (4.40-5.60) X 10*6/uL Hgb 10.9 L (13.0-17.0) g/dL Hct 34.1 L (39.6-50.0) % Immature Gran # 0.08 H (0.00-0.04) X 10*3/uL Eosinophils # 0.80 H (0.04-0.35) X 10*3/uL Chloride (98-107) mmol/L Glucose (74-99) mg/dL POC Glucose (mg/dL) 172 H 204 H (70-110) mg/dL Microbiology - Last 24 Hours (Table) 04/12/23 21:50 Gram Stain - Preliminary Neck Wound Culture - Preliminary Presumptive MRSA 04/13/23 12:20 Gram Stain - Preliminary Neck Assessment and Plan Assessment: Assessment and plan * Left neck cellulitis with purulent drainage/abscess * Diabetes mellitus type 2 * Coronary artery disease history of PCI * Peripheral arterial disease * History of atrial fibrillation * hyperlipidemia * Obstructive sleep apnea * Chronic kidney disease stage III * In regards to left neck cellulitis, CT soft tissue neck obtained which showed significant subcutaneous inflammatory changes involving the posterior left neck consistent with abscess. Reactive adenopathy noted. Continue IV antibiotic = vancomycin. Vascular surgery and infectious disease consulted * In regards to diabetes mellitus, Accu-Cheks ACHS continue correctional insulin * In regards to coronary artery disease continue home regimen including aspirin, Lipitor, * For history of atrial fibrillation, continue propafenone, optimize electrolytes continue panel monitor * In regards to history of hypertension continue hydralazine, monitor for hypotension * CODE STATUS is full code Time with Patient: Greater than 30
[2023-04-14] MEDS: IV FLUID CONTINUATION 1,000 ML IV ONE (16:22)
[2023-04-14 16:28] LABS: Glucose,Whole Blood 201 mg/dL (70-110)
[2023-04-14] MEDS: ONDANSETRON 4 MG/2 ML VIAL IVP ONE ×2 (16:32→18:40)
[2023-04-14] MEDS ORDERED: PHENYLEPHRINE 10 MG/ML VIAL ONE (16:33)
[2023-04-14] MEDS ORDERED: SUCCINYLCHOLINE CHLORIDE 200 MG/10 ML VIAL IV ONE (16:33)
[2023-04-14] MEDS ORDERED: fentaNYL (PF) 50 MCG/ML 2 ML AMP ONE (16:33)
[2023-04-14] MEDS ORDERED: LIDOCAINE 1% INJ 10MG/ML (20 ML MDV) ONE (16:33)
[2023-04-14] MEDS ORDERED: PROPOFOL 10 MG/ML 20 ML VIAL IV ONE (16:33)
--- NOTE | 2023-04-14 17:50 | P.OP ---
Date of Procedure: 04/14/23 Preoperative Diagnosis: Left neck wound with abscess Postoperative Diagnosis: Same Procedure(s) Performed: Left neck excisional debridement and drainage of abscess Anesthesia: MAXIM Surgeon: Floyd Yee Estimated Blood Loss (ml): 30 Pathology: other (Wound culture and tissue specimen) Condition: stable Disposition: PACU Indications for Procedure: 83-year-old gentleman who is currently being treated at the hospital for abscess and infection of the neck who underwent I&D at the wound care center previously without improvement. Due to the severity of the wound and drainage it was recommended to perform the procedure in the operating room. Operative Findings: Large amount of fibrinous tissue and purulent drainage noted extending to the fascial planes. Wound measured 10 cm x 6 cm x 5 cm in depth. No bone was exposed. Description of Procedure: After written and informed consent was obtained the patient and all risks, benefits and competitions were described the patient was brought to the operative suite and laid in a supine position with a bump and rotated to the right. The area of the neck was prepped and draped in usual sterile fashion after appropriate anesthetic was performed per the anesthesiologist. A timeout was performed in normal fashion. Patient was on scheduled antibiotics. Due to the maceration of the wound as well as purulent drainage noted attempt was placed at excising the fibrotic and necrotic area in the middle with a 15 blade scalpel. An elliptical incision was created and dissection was carried down around the tissue to the fascia. Once at the fascia large amount of purule nt drainage was noted and this was cultured. As much of the fibrinous tissue was then removed sharply with a scalpel. Hemostasis was assured with electrocautery and pressure. Once all purulent drainage was removed the area was copiously irrigated with antibiotic solution. The incision was then closed loosely with vertical mattress sutures 3-0 nylon. Iodoform gauze was also placed within the abscess cavity. The area was then cleansed and dressings were placed. Patient are the procedure well and was sent to PACU for recovery.
[2023-04-14] MEDS: HYDROmorphone 0.5 MG/0.5 ML SYRINGE IVP PRN (18:07)
[2023-04-14] MEDS: HYDROmorphone 0.5 MG/0.5 ML SYRINGE IVP ONE (18:21)
[2023-04-14 18:33] LABS: Glucose,Whole Blood 164 mg/dL (70-110)
[2023-04-14] MEDS: DEXAMETHASONE SOD PHOSPHATE 4 MG/ML 1 ML VIAL IV ONE (18:39)
[2023-04-14] MEDS: LACTATED RINGERS 1,000 ML IV SCH (18:40)
[2023-04-14 20:29] LABS: Glucose,Whole Blood 172 mg/dL (70-110)
--- NOTE | 2023-04-14 22:27 | P.PN ---
Subjective Progress Note Date: 04/14/23 Principal diagnosis: Reason for follow-up is left neck abscess and left leg ulcer Patient is a 83-year-old male with a past medical history significant for hypertension hyperlipidemia diabetes mellitus atrial fibrillation patient did have a left lower extremity ulceration for the patient to follow-up at [facility] wound care center with Dr. Chamberlain apparently the patient has developed a painful lump to the left side of the neck more than a week ago that was attempted to drain in the outpatient setting without any improvement subsequently presenting with worsening pain and swelling to the left neck area. On today's evaluation that is 04/14/2023,the patient denies any fever or any chills, patient is breathing comfortably on room air, the patient denies chest pain shortness of breath and no significant cough, patient denies abdominal pain, no nausea vomiting or diarrhea. Patient pain to the left side of neck is slightly decreased in intensity. Patient white count is down to 10.02 creatinine 0.66 cultures with presumed MRSA Objective - Vital Signs Vital signs: Vital Signs Temp 98.1 F 04/14/23 07:28 Pulse 71 04/14/23 07:28 Resp 17 04/14/23 07:28 BP 158/82 04/14/23 07:28 Pulse Ox 96 04/14/23 07:50 FiO2 21 04/14/23 07:50 Intake & Output 04/13/23 04/14/23 04/14/23 18:59 06:59 18:59 Intake Total 354 Balance 354 Intake: Oral 354 Other: Voiding Method Urinal Urinal Urinal # Voids 3 - Exam GENERAL DESCRIPTION: An elderly male lying in bed in no distress HEENT: Left neck is currently covered in the dressing minimal foul-smelling RESPIRATORY SYSTEM: Unlabored breathing , decreased breath sounds at bases HEART: S1 S2 regular rate and rhythm , ABDOMEN: Soft , no tenderness EXTREMITIES: Left leg wound is currently dressed - Labs CBC & Chem 7: 04/14/23 04:44 04/14/23 04:44 Labs: Abnormal Lab Results - Last 24 Hours (Table) 04/13/23 04/13/23 04/14/23 Range/Units 16:57 20:54 04:44 WBC (4.50-10.00) X 10*3/uL RBC (4.40-5.60) X 10*6/uL Hgb (13.0-17.0) g/dL Hct (39.6-50.0) % Immature Gran # (0.00-0.04) X 10*3/uL Eosinophils # (0.04-0.35) X 10*3/uL Chloride 109 H (98-107) mmol/L Glucose 172 H (74-99) mg/dL POC Glucose (mg/dL) 180 H 206 H (70-110) mg/dL 04/14/23 04/14/23 04/14/23 Range/Units 04:44 05:39 11:40 WBC 10.02 H (4.50-10.00) X 10*3/uL RBC 3.72 L (4.40-5.60) X 10*6/uL Hgb 10.9 L (13.0-17.0) g/dL Hct 34.1 L (39.6-50.0) % Immature Gran # 0.08 H (0.00-0.04) X 10*3/uL Eosinophils # 0.80 H (0.04-0.35) X 10*3/uL Chloride (98-107) mmol/L Glucose (74-99) mg/dL POC Glucose (mg/dL) 172 H 204 H (70-110) mg/dL Microbiology - Last 24 Hours (Table) 04/12/23 21:50 Gram Stain - Preliminary Neck Wound Culture - Preliminary Presumptive MRSA 04/13/23 12:20 Gram Stain - Preliminary Neck Assessment and Plan (1) Neck abscess Current Visit: Yes Status: Acute Code(s): L02.11 - CUTANEOUS ABSCESS OF NECK SNOMED Code(s): 5433921 (2) MRSA (methicillin resistant staph aureus) culture positive Current Visit: Yes Status: Acute Code(s): Z22.322 - CARRIER OR SUSPECTED CARRIER OF METHICILLIN RESIS STAPH SNOMED Code(s): 514647424 (3) Diabetic ulcer of lower extremity Current Visit: No Status: Acute Code(s): E11.622 - TYPE 2 DIABETES MELLITUS WITH OTHER SKIN ULCER SNOMED Code(s): 768667553 Plan: 1present to the hospital with a painful lump to the left side of the neck which is draining pus and blood patient did have elevated white count concerning for abscess and cellulitis likely from gram-positive skin isabel failing outpatient therapy 2-local culture currently growing present MRSA 3-await surgical drainage and deep culture that will also determine the extent of this infection 4-patient did have wound to the left lower extremity without any slough tissue or cellulitis local wound care will be suggested with dry Aquacel silver dressing and keep the area of the pressure 5-patient to continue with vancomycin pharmacy to dose target trough of 15 while watching kidney function and Vanco trough closely Dictation was produced using [employer] dictation software. please excuse any grammatical, word or spelling errors. Time with Patient: Less than 30
[2023-04-15 05:21] LABS: Glucose,Whole Blood 199 mg/dL (70-110)
[2023-04-15 08:25] LABS: HCT 32.1 % (39.6-50.0); HGB 10.2 g/dL (13.0-17.0); MCH 29.3 pg (27.0-32.0); MCHC 31.8 g/dL (32.0-37.0); MCV 92.2 FL (80.0-97.0); Mean Platelet Volume 10.2 FL (9.5-12.2); NRBC Per 100 WBC 0 X 10*3/uL (0.00-0.01); Platelet Count 303 X 10*3/uL (140-440); RBC 3.48 X 10*6/uL (4.40-5.60); RDW 13.9 % (11.5-14.5); WBC 11.98 X 10*3/uL (4.50-10.00)
[2023-04-15 08:52] LABS: BUN/Creat Ratio 15.33 Ratio (12.00-20.00); Blood Urea Nitrogen 13.8 mg/dL (9.0-27.0); Calcium 8.5 mg/dL (8.7-10.3); Carbon Dioxide 23.3 mmol/L (21.6-31.8); Chloride 106 mmol/L (96-109); Glucose 172 mg/dL (70-110); Potassium 4.2 mmol/L (3.5-5.5); Sodium 139 mmol/L (135-145)
[2023-04-15 11:31] LABS: African American GFR (CKD) >90 (>60 ml/min/1.73 sqM); Non-African American GFR(CKD) 82 (>60 ml/min/1.73 sqM)
[2023-04-15 11:46] LABS: Glucose,Whole Blood 203 mg/dL (70-110)
--- NOTE | 2023-04-15 12:19 | P.PN ---
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 Patient states symptom onset was 2 weeks prior to presentation. Patient states he is followed up with outpatient vascular team who ordered drainage. Prior to presentation patient has not been on oral antibiotic. Patient was made to come to the emergency secondary to pleural drainage noted and bleeding noted from the site. * Workup initiated in ER include WBC count of 18.2 hemoglobin 11.9 platelet count of 300, serum chemistry shows sodium 133 potassium 4.1, dioxide 26 BUN 14 creatinine 0.67 glucose 166 * Serum albumin of 3, alkaline phosphatase 166 * Patient was given IV clindamycin and vancomycin, started on fluid resuscitation and admitted to medical floor with consultation from vascular surgery and infectious disease * 04/14/23: Patient seen and evaluated bedside, on evaluation patient is awake and alert, continue current antibiotic regimen plan to the OR with surgery for wound debridement. Continue to monitor WBC count of 10.2 hemoglobin 10.9 creatinine within normal limits * 04/15/23: Patient seen and evaluated at bedside, patient is status post excisional debridement of neck wound postoperative day 1. Continue patient on IV antibiotic vascular surgeon Infectious Disease following will continue to monitor CBC and basic metabolic panel REVIEW OF SYSTEMS: Neck swelling, drainage, bleeding from incision and drainage site CONSTITUTIONAL: No fever, no malaise, no fatigue. HEENT: No recent visual problems or hearing problems. Denied any sore throat. CARDIOVASCULAR: No chest pain, orthopnea, PND, no palpitations, no syncope. PULMONARY: No shortness of breath, no cough, no hemoptysis. GASTROINTESTINAL: No diarrhea, no nausea, no vomiting, no abdominal pain. NEUROLOGICAL: No headaches, no weakness, no numbness. HEMATOLOGICAL: Denies any bleeding or petechiae. GENITOURINARY: Denies any burning micturition, frequency, or urgency. MUSCULOSKELETAL/RHEUMATOLOGICAL: Denies any joint pain, swelling, or any muscle pain. ENDOCRINE: Denies any polyuria or polydipsia. PHYSICAL EXAMINATION: GENERAL: The patient is alert and oriented x3,. ill appearance HEENT: Pupils are round and equally reacting to light. Left neck swelling, purulent drainage resolved, wound bandage CARDIOVASCULAR: S1 and S2 present. No murmurs, rubs, or gallops. PULMONARY: Chest is clear to auscultation, no wheezing or crackles. ABDOMEN: Soft, nontender, nondistended, normoactive bowel sounds. No palpable organomegaly. MUSCULOSKELETAL: right below-knee amputation, left lower extremity edema EXTREMITIES: No cyanosis, clubbing, or pedal edema. NEUROLOGICAL: Gross neurological examination did not reveal any focal deficits. SKIN: No rashes. Objective - Vital Signs Vital signs: Vital Signs Temp 98.2 F 04/15/23 02:03 Pulse 64 04/15/23 02:03 Resp 20 04/15/23 02:03 BP 146/69 04/15/23 02:03 Pulse Ox 96 04/15/23 02:03 FiO2 21 04/14/23 07:50 Intake & Output 04/14/23 04/14/23 04/15/23 06:59 18:59 06:59 Intake Total 600 952 Output Total 30 650 Balance 570 302 Weight 113.398 kg Intake: IV 600 Oral 952 Output: Urine 650 Estimated Blood Loss 30 Other: Voiding Method Urinal Urinal Urinal - Labs CBC & Chem 7: 04/15/23 04:58 04/15/23 10:58 Labs: Abnormal Lab Results - Last 24 Hours (Table) 04/14/23 04/14/23 04/14/23 Range/Units 04:44 11:40 16:26 WBC 10.02 H (4.50-10.00) X 10*3/uL RBC 3.72 L (4.40-5.60) X 10*6/uL Hgb 10.9 L (13.0-17.0) g/dL Hct 34.1 L (39.6-50.0) % Immature Gran # 0.08 H (0.00-0.04) X 10*3/uL Eosinophils # 0.80 H (0.04-0.35) X 10*3/uL POC Glucose (mg/dL) 204 H 201 H (70-110) mg/dL 04/14/23 04/14/23 04/15/23 Range/Units 18:27 20:28 05:20 WBC (4.50-10.00) X 10*3/uL RBC (4.40-5.60) X 10*6/uL Hgb (13.0-17.0) g/dL Hct (39.6-50.0) % Immature Gran # (0.00-0.04) X 10*3/uL Eosinophils # (0.04-0.35) X 10*3/uL POC Glucose (mg/dL) 164 H 172 H 199 H (70-110) mg/dL Microbiology - Last 24 Hours (Table) 04/13/23 12:20 Gram Stain - Preliminary Neck Wound Culture - Preliminary Presumptive MRSA 04/12/23 21:20 Blood Culture Gram Stain - Preliminary Blood Blood Culture - Preliminary 04/12/23 21:35 Blood Culture - Preliminary Blood 04/12/23 21:50 Gram Stain - Preliminary Neck Wound Culture - Preliminary Presumptive MRSA Assessment and Plan Assessment: Assessment and plan * Left neck cellulitis with purulent drainage/abscess status post excisional debridement POD 1 * Diabetes mellitus type 2 * Coronary artery disease history of PCI * Peripheral arterial disease * History of atrial fibrillation * hyperlipidemia * Obstructive sleep apnea * Chronic kidney disease stage III * In regards to left neck cellulitis, CT soft tissue neck obtained which showed significant subcutaneous inflammatory changes involving the posterior left neck consistent with abscess. Reactive adenopathy noted. Continue IV antibiotic = vancomycin. Vascular surgery and infectious disease consulted, patient is status post excisional debridement. * In regards to diabetes mellitus, Accu-Cheks ACHS continue correctional insulin * In regards to coronary artery disease continue home regimen including aspirin, Lipitor * For history of atrial fibrillation, continue propafenone, optimize electrolytes continue traffic monitor specialist * In regards to history of hypertension continue hydralazine, monitor for hypotension * CODE STATUS is full code Time with Patient: Greater than 30
--- NOTE | 2023-04-15 14:18 | P.PN ---
Subjective Progress Note Date: 04/15/23 Principal diagnosis: Neck abscess Patient is seen and examined today as a follow-up. Yesterday he underwent surgical incision and drainage of a left neck abscess. Patient states pain is tolerable. He is afebrile. Wound culture MRSA Objective - Vital Signs Vital signs: Vital Signs Temp 98.2 F 04/15/23 02:03 Pulse 64 04/15/23 02:03 Resp 20 04/15/23 02:03 BP 146/69 04/15/23 02:03 Pulse Ox 96 04/15/23 02:03 FiO2 21 04/14/23 07:50 Intake & Output 04/14/23 04/15/23 04/15/23 18:59 06:59 18:59 Intake Total 600 952 Output Total 30 650 Balance 570 302 Weight 113.398 kg Intake: IV 600 Oral 952 Output: Urine 650 Estimated Blood Loss 30 Other: Voiding Method Urinal Urinal Urinal - Exam General appearance: The patient is alert, oriented, appears in no acute distress. HET: Head is normocephalic and atraumatic. Pupils are equal and reactive. Neck: Supple. Left side of neck with incision with sutures with iodoform packing, removed and repacked. Abdomen: Soft, nondistended. Extremities: Normal skin color and turgor. Neurological: No focal deficits. - Labs CBC & Chem 7: 04/15/23 04:58 04/15/23 10:58 Labs: Abnormal Lab Results - Last 24 Hours (Table) 04/14/23 04/14/23 04/14/23 Range/Units 11:40 16:26 18:27 WBC (4.50-10.00) X 10*3/uL RBC (4.40-5.60) X 10*6/uL Hgb (13.0-17.0) g/dL Hct (39.6-50.0) % MCHC (32.0-37.0) g/dL POC Glucose (mg/dL) 204 H 201 H 164 H (70-110) mg/dL 04/14/23 04/15/23 04/15/23 Range/Units 20:28 04:58 05:20 WBC 11.98 H (4.50-10.00) X 10*3/uL RBC 3.48 L (4.40-5.60) X 10*6/uL Hgb 10.2 L (13.0-17.0) g/dL Hct 32.1 L (39.6-50.0) % MCHC 31.8 L (32.0-37.0) g/dL POC Glucose (mg/dL) 172 H 199 H (70-110) mg/dL Microbiology - Last 24 Hours (Table) 04/13/23 12:20 Gram Stain - Preliminary Neck Wound Culture - Preliminary Presumptive MRSA 04/12/23 21:20 Blood Culture Gram Stain - Preliminary Blood Blood Culture - Preliminary 04/12/23 21:35 Blood Culture - Preliminary Blood 04/12/23 21:50 Gram Stain - Preliminary Neck Wound Culture - Preliminary Presumptive MRSA Assessment and Plan Assessment: 1. Left infected neck wound with abcess status post surgical incision and drainage 2. Diabetes mellitus 3. Atrial fibrillation 4. Hyperlipidemia 5. Hyper tension 6. Blindness 7. Peripheral vascular disease Plan: 1. Continue antibiotics as recommended from infectious disease 2. Daily dressing change with iodoform packing, 4 x 4 and ABD pad 3. May resume anticoagulation 4. Patient will require outpatient wound care Thank you for this consultation, we will continue to follow. The impression and plan of care has been dictated as directed. I performed a history and examination of this patient, discussed the same with the dictator. I agree with the dictator's note ,documented as a scribe. Any additional findings or plans will be noted.
--- NOTE | 2023-04-15 15:49 | P.PN ---
Subjective Progress Note Date: 04/15/23 Principal diagnosis: Reason for follow-up is left neck abscess and left leg ulcer Patient is a 83-year-old male with a past medical history significant for hypertension hyperlipidemia diabetes mellitus atrial fibrillation patient did have a left lower extremity ulceration for the patient to follow-up at [facility] wound care center with Dr. Chamberlain apparently the patient has developed a painful lump to the left side of the neck more than a week ago that was attempted to drain in the outpatient setting without any improvement subsequently presenting with worsening pain and swelling to the left neck area. On today's evaluation that is Patient is status post Left neck excisional debridement and drainage of abscess, post debridement Wound measured 10 cm x 6 cm x 5 cm in depth. No bone was exposed., Procedure completed on 04/14/2023 04/15/2023,the patient remains to be afebrile, patient is on room air not requiring supplemental oxygen and denies any shortness of breath no chest pain or cough.Patient denies having any nausea or vomiting, no abdominal pain and no diarrhea has been reported pain to the left side of neck has slightly decreased in intensity. Patient white count is down to 11.98 creatinine 0.84 Vanco trough was 27.1 culture growing MRSA blood culture with corynebacterium species Objective - Vital Signs Vital signs: Vital Signs Temp 98.0 F 04/15/23 14:10 Pulse 66 04/15/23 14:10 Resp 20 04/15/23 14:10 BP 163/74 04/15/23 14:10 Pulse Ox 94 L 04/15/23 14:10 FiO2 21 04/14/23 07:50 Intake & Output 04/14/23 04/15/23 04/15/23 18:59 06:59 18:59 Intake Total 600 952 Output Total 30 650 Balance 570 302 Weight 113.398 kg Intake: IV 600 Oral 952 Output: Urine 650 Estimated Blood Loss 30 Other: Voiding Method Urinal Urinal Urinal - Exam GENERAL DESCRIPTION: An elderly male lying in bed in no distress HEENT: Left neck is currently covered in the dressing minimal foul-smelling RESPIRATORY SYSTEM: Unlabored breathing , decreased breath sounds at bases HEART: S1 S2 regular rate and rhythm , ABDOMEN: Soft , no tenderness EXTREMITIES: Left leg wound is currently dressed - Labs CBC & Chem 7: 04/15/23 04:58 04/15/23 10:58 Labs: Abnormal Lab Results - Last 24 Hours (Table) 04/14/23 04/14/23 04/14/23 Range/Units 16:26 18:27 20:28 WBC (4.50-10.00) X 10*3/uL RBC (4.40-5.60) X 10*6/uL Hgb (13.0-17.0) g/dL Hct (39.6-50.0) % MCHC (32.0-37.0) g/dL Glucose (70-110) mg/dL POC Glucose (mg/dL) 201 H 164 H 172 H (70-110) mg/dL Calcium (8.7-10.3) mg/dL 04/15/23 04/15/23 04/15/23 Range/Units 04:58 04:58 05:20 WBC 11.98 H (4.50-10.00) X 10*3/uL RBC 3.48 L (4.40-5.60) X 10*6/uL Hgb 10.2 L (13.0-17.0) g/dL Hct 32.1 L (39.6-50.0) % MCHC 31.8 L (32.0-37.0) g/dL Glucose 172 H (70-110) mg/dL POC Glucose (mg/dL) 199 H (70-110) mg/dL Calcium 8.5 L (8.7-10.3) mg/dL 04/15/23 Range/Units 11:45 WBC (4.50-10.00) X 10*3/uL RBC (4.40-5.60) X 10*6/uL Hgb (13.0-17.0) g/dL Hct (39.6-50.0) % MCHC (32.0-37.0) g/dL Glucose (70-110) mg/dL POC Glucose (mg/dL) 203 H (70-110) mg/dL Calcium (8.7-10.3) mg/dL Microbiology - Last 24 Hours (Table) 04/12/23 21:35 Blood Culture - Preliminary Blood 04/12/23 21:20 Blood Culture Gram Stain - Preliminary Blood Blood Culture - Preliminary Corynebacterium species 04/12/23 21:50 Gram Stain - Final Neck Wound Culture - Final Methicillin resist S. aureus 04/14/23 17:05 Gram Stain - Preliminary Neck 04/13/23 12:20 Gram Stain - Preliminary Neck Wound Culture - Preliminary Presumptive MRSA Assessment and Plan (1) Neck abscess Current Visit: Yes Status: Acute Code(s): L02.11 - CUTANEOUS ABSCESS OF NECK SNOMED Code(s): 7548812 (2) MRSA (methicillin resistant staph aureus) culture positive Current Visit: Yes Status: Acute Code(s): Z22.322 - CARRIER OR SUSPECTED CARRIER OF METHICILLIN RESIS STAPH SNOMED Code(s): 664983941 (3) Diabetic ulcer of lower extremity Current Visit: No Status: Acute Code(s): E11.622 - TYPE 2 DIABETES MELLITUS WITH OTHER SKIN ULCER SNOMED Code(s): 842474289 (4) Positive blood culture Current Visit: Yes Status: Acute Code(s): R78.81 - BACTEREMIA SNOMED Code(s): 938005289 Plan: 1present to the hospital with a painful lump to the left side of the neck which is draining pus and blood patient did have elevated white count concerning for abscess and cellulitis likely from gram-positive skin isabel failing outpatient therapy 2-local culture currently growing MRSA, blood culture positive for corynebacterium possible contamination however blood culture repeated document clearance 3-patient is status post surgical drainage and deep culture 4-patient did have wound to the left lower extremity without any slough tissue or cellulitis local wound care will be suggested with dry Aquacel silver dressing and keep the area of the pressure 5-patient to continue with vancomycin pharmacy to dose, vancomycin dosing to be just to keep the trough around 15 keeping in mind extensive infection he will likely need IV vancomycin on discharge showcase maker to arrange for it Dictation was produced using [employer] dictation software. please excuse any gr ammatical, word or spelling errors. Time with Patient: Less than 30
[2023-04-15] MEDS: VANCOMYCIN TROUGH DUE 1 EACH MISC MISCELLANE ONE (16:15)
[2023-04-15 17:14] LABS: Glucose,Whole Blood 229 mg/dL (70-110)
[2023-04-15 20:08] LABS: Glucose,Whole Blood 207 mg/dL (70-110)
[2023-04-15] MEDS: ACETAMINOPHEN TAB 325 MG TAB PO PRN (21:47)
[2023-04-16 05:12] LABS: African American GFR (CKD) >90 (>60 ml/min/1.73 sqM); Anion Gap 3 mmol/L; Blood Urea Nitrogen 13 mg/dL (9-20); Calcium 8.3 mg/dL (8.4-10.2); Carbon Dioxide 23 mmol/L (22-30); Chloride 109 mmol/L (98-107); Glucose 166 mg/dL (74-99); Non-African American GFR(CKD) 80 (>60 ml/min/1.73 sqM); Potassium 3.7 mmol/L (3.5-5.1); Sodium 135 mmol/L (137-145)
[2023-04-16 05:53] LABS: Glucose,Whole Blood 182 mg/dL (70-110)
[2023-04-16 08:38] LABS: HCT 31.7 % (39.6-50.0); HGB 10.1 g/dL (13.0-17.0); MCH 29.4 pg (27.0-32.0); MCHC 31.9 g/dL (32.0-37.0); MCV 92.2 FL (80.0-97.0); Mean Platelet Volume 10.4 FL (9.5-12.2); NRBC Per 100 WBC 0 X 10*3/uL (0.00-0.01); Platelet Count 277 X 10*3/uL (140-440); RBC 3.44 X 10*6/uL (4.40-5.60); RDW 13.6 % (11.5-14.5); WBC 11.41 X 10*3/uL (4.50-10.00)
[2023-04-16] MEDS: VANCOMYCIN 1,750 MG in SODIUM CHLORIDE 0.9% 500 ML 500 ML IVPB SCH (09:35)
--- NOTE | 2023-04-16 11:18 | CDI ---
Documentation Clarification Form Date: 04/16/2023 11:08:02 AM From: Heide Holliday RN, CCDS Email: [email or web address] Admit Date: 04/12/2023 10:11:00 PM Patient Name: Sanjiv Bull Visit Number: [id number] Discharge Date: ATTENTION: The Clinical Documentation Specialists (CDI) and [facility] Coding Staff appreciate your assistance in clarifying documentation. Please respond to the clarification below the line at the bottom and electronically sign. The CDI & [facility] Coding staff will review the response and follow-up if needed. Please note: Queries are made part of the Legal Health Record. If you have any questions, please contact the author of this message via ITS. Dr. Lucian Mann Cellulitis is documented in the ED, H&P and subsequent progress notes. Additional clarification regarding the type of cellulitis is requested. History/risk factors: DM, CAD, CKD, vascular disease, HTN, HLD and right BKA. Presents with left neck swelling and abscess. S/P I&D and excisional debridement. Clinical Indicators: H&P: "Left neck cellulitis with purulent drainage/abscess. Diabetes mellitus type 2." 04/12 CT soft tissue of neck: Significant subcutaneous inflammatory change involving the posterior left neck consistent with phlegmon. No well formed thick walled drainable abscess currently. Reactive adenopathy is present. 04/13 ID Consult: "presented to the hospital with a painful lump to the left side of the neck which is draining pus and blood. Patient did have elevated white count concerning for abscess and cellulitis, likely from gram-positive skin isabel failing outpatient therapy." Treatment: Accuchecks ACHS, correctional insulin, S/P I&D and excisional debridement on 04/14; IV Vancomycin 1750mg Q12H 04/12-; IV Vancomycin 1750mg Q24H current. Please clarify the etiology of the cellulitis, if known: [ y ] Cellulitis is a diabetic skin complication [ ] Cellulitis is not a diabetic skin complication [ ] Other, please specify: [ ] Unable to determine MTDD
[2023-04-16 11:29] LABS: Glucose,Whole Blood 236 mg/dL (70-110)
--- NOTE | 2023-04-16 11:49 | P.PN ---
Subjective Progress Note Date: 04/16/23 Principal diagnosis: Neck abscess Patient is seen and examined today as a follow-up. He is status post incision and drainage of a left neck abscess. Abscess drainin. Patient states pain is tolerable. He is afebrile. Wound culture MRSA. Objective - Vital Signs Vital signs: Vital Signs Temp 98.1 F 04/16/23 07:45 Pulse 63 04/16/23 07:45 Resp 18 04/16/23 07:45 BP 168/77 04/16/23 07:45 Pulse Ox 94 L 04/16/23 07:45 FiO2 21 04/14/23 07:50 Intake & Output 04/15/23 04/16/23 04/16/23 18:59 06:59 18:59 Intake Total 450 Balance 450 Intake: Oral 450 Other: Voiding Method Urinal Urinal # Voids 2 2 # Bowel Movements 1 2 - Exam General appearance: The patient is alert, oriented, appears in no acute distres s. HET: Head is normocephalic and atraumatic. Pupils are equal and reactive. Neck: Supple. Left side of neck with incision with sutures with iodoform packing, removed and repacked. Abdomen: Soft, nondistended. Extremities: Normal skin color and turgor. Neurological: No focal deficits. - Labs CBC & Chem 7: 04/16/23 04:31 04/16/23 04:31 Labs: Abnormal Lab Results - Last 24 Hours (Table) 04/15/23 04/15/23 04/15/23 Range/Units 11:45 17:13 20:07 WBC (4.50-10.00) X 10*3/uL RBC (4.40-5.60) X 10*6/uL Hgb (13.0-17.0) g/dL Hct (39.6-50.0) % MCHC (32.0-37.0) g/dL Sodium (137-145) mmol/L Chloride (98-107) mmol/L Glucose (74-99) mg/dL POC Glucose (mg/dL) 203 H 229 H 207 H (70-110) mg/dL Calcium (8.4-10.2) mg/dL 04/16/23 04/16/23 04/16/23 Range/Units 04:31 04:31 05:51 WBC 11.41 H (4.50-10.00) X 10*3/uL RBC 3.44 L (4.40-5.60) X 10*6/uL Hgb 10.1 L (13.0-17.0) g/dL Hct 31.7 L (39.6-50.0) % MCHC 31.9 L (32.0-37.0) g/dL Sodium 135 L (137-145) mmol/L Chloride 109 H (98-107) mmol/L Glucose 166 H (74-99) mg/dL POC Glucose (mg/dL) 182 H (70-110) mg/dL Calcium 8.3 L (8.4-10.2) mg/dL Microbiology - Last 24 Hours (Table) 04/12/23 21:20 Blood Culture Gram Stain - Final Blood Blood Culture - Final Corynebacterium species 04/13/23 12:20 Anaerobic Culture - Preliminary Neck 04/14/23 17:05 Gram Stain - Preliminary Neck Wound Culture - Preliminary Presumptive MRSA 04/13/23 12:20 Gram Stain - Final Neck Wound Culture - Final Methicillin resist S. aureus 04/12/23 21:35 Blood Culture - Preliminary Blood 04/12/23 21:50 Gram Stain - Final Neck Wound Culture - Final Methicillin resist S. aureus Assessment and Plan Assessment: 1. Left infected neck wound with abcess status post surgical incision and drainage 2. Diabetes mellitus 3. Atrial fibrillation 4. Hyperlipidemia 5. Hyper tension 6. Blindness 7. Peripheral vascular disease Plan: 1. Continue antibiotics as recommended from infectious disease 2. Daily dressing change with iodoform packing, 4 x 4 and ABD pad 3. May resume anticoagulation 4. Patient will require outpatient wound care Thank you for this consultation, we will continue to follow. The impression and plan of care has been dictated as directed. Dr. Kaufman I performed a history and examination of this patient, discussed the same with the dictator. I agree with the dictator's note ,documented as a scribe. Any additional findings or plans will be noted.
--- NOTE | 2023-04-16 12:28 | P.PN ---
Subjective Progress Note Date: 04/16/23 Principal diagnosis: Reason for follow-up is left neck abscess and left leg ulcer Patient is a 83-year-old male with a past medical history significant for hypertension hyperlipidemia diabetes mellitus atrial fibrillation patient did have a left lower extremity ulceration for the patient to follow-up at [facility] wound care center with Dr. Chamberlain apparently the patient has developed a painful lump to the left side of the neck more than a week ago that was attempted to drain in the outpatient setting without any improvement subsequently presenting with worsening pain and swelling to the left neck area.Patient is status post Left neck excisional debridement and drainage of abscess, post debridement Wound measured 10 cm x 6 cm x 5 cm in depth. No bone was exposed., Procedure completed on 04/14/2023 On today's evaluation that is 04/16/2023, the patient continues to be afebrile, the patient is on room air and breathing comfortably, the Pt denies having any chest pain or cough, the patient denies having any abdominal pain no vomiting or any diarrhea has been reported by the nursing staff, the patient pain to the left side of neck has decreased in intensity. The patient white count is 11.41 creatinine 0.89 culture with MRSA Objective - Vital Signs Vital signs: Vital Signs Temp 98.1 F 04/16/23 07:45 Pulse 63 04/16/23 07:45 Resp 18 04/16/23 07:45 BP 168/77 04/16/23 07:45 Pulse Ox 94 L 04/16/23 07:45 FiO2 21 04/14/23 07:50 Intake & Output 04/15/23 04/16/23 04/16/23 18:59 06:59 18:59 Intake Total 450 Balance 450 Intake: Oral 450 Other: Voiding Method Urinal Urinal Urinal # Voids 2 2 # Bowel Movements 1 2 - Exam GENERAL DESCRIPTION: An elderly male lying in bed in no distress HEENT: Left neck wound base with minimal slough surrounding redness improved minimal drainage on the dressing RESPIRATORY SYSTEM: Unlabored breathing , decreased breath sounds at bases HEART: S1 S2 regular rate and rhythm , ABDOMEN: Soft , no tenderness EXTREMITIES: Left leg wound is currently dressed - Labs CBC & Chem 7: 04/16/23 04:31 04/16/23 04:31 Labs: Abnormal Lab Results - Last 24 Hours (Table) 04/15/23 04/15/23 04/16/23 Range/Units 17:13 20:07 04:31 WBC (4.50-10.00) X 10*3/uL RBC (4.40-5.60) X 10*6/uL Hgb (13.0-17.0) g/dL Hct (39.6-50.0) % MCHC (32.0-37.0) g/dL Sodium 135 L (137-145) mmol/L Chloride 109 H (98-107) mmol/L Glucose 166 H (74-99) mg/dL POC Glucose (mg/dL) 229 H 207 H (70-110) mg/dL Calcium 8.3 L (8.4-10.2) mg/dL 04/16/23 04/16/23 04/16/23 Range/Units 04:31 05:51 11:28 WBC 11.41 H (4.50-10.00) X 10*3/uL RBC 3.44 L (4.40-5.60) X 10*6/uL Hgb 10.1 L (13.0-17.0) g/dL Hct 31.7 L (39.6-50.0) % MCHC 31.9 L (32.0-37.0) g/dL Sodium (137-145) mmol/L Chloride (98-107) mmol/L Glucose (74-99) mg/dL POC Glucose (mg/dL) 182 H 236 H (70-110) mg/dL Calcium (8.4-10.2) mg/dL Microbiology - Last 24 Hours (Table) 04/12/23 21:20 Blood Culture Gram Stain - Final Blood Blood Culture - Final Corynebacterium species 04/13/23 12:20 Anaerobic Culture - Preliminary Neck 04/14/23 17:05 Gram Stain - Preliminary Neck Wound Culture - Preliminary Presumptive MRSA 04/13/23 12:20 Gram Stain - Final Neck Wound Culture - Final Methicillin resist S. aureus 04/12/23 21:35 Blood Culture - Preliminary Blood 04/12/23 21:50 Gram Stain - Final Neck Wound Culture - Final Methicillin resist S. aureus Assessment and Plan (1) Neck abscess Current Visit: Yes Status: Acute Code(s): L02.11 - CUTANEOUS ABSCESS OF NECK SNOMED Code(s): 0884889 (2) MRSA (methicillin resistant staph aureus) culture positive Current Visit: Yes Status: Acute Code(s): Z22.322 - CARRIER OR SUSPECTED CARRIER OF METHICILLIN RESIS STAPH SNOMED Code(s): 180172698 (3) Diabetic ulcer of lower extremity Current Visit: No Status: Acute Code(s): E11.622 - TYPE 2 DIABETES MELLITUS WITH OTHER SKIN ULCER SNOMED Code(s): 621409907 (4) Positive blood culture Current Visit: Yes Status: Acute Code(s): R78.81 - BACTEREMIA SNOMED Code(s): 620781665 Plan: 1present to the hospital with a painful lump to the left side of the neck which is draining pus and blood patient did have elevated white count concerning for abscess and cellulitis likely from gram-positive skin isabel failing outpatient therapy 2-local culture currently growing MRSA, blood culture positive for corynebact erium possible contamination however blood culture repeated document clearance 3-patient is status post surgical drainage and deep culture 4-patient did have wound to the left lower extremity without any slough tissue or cellulitis local wound care will be suggested with dry Aquacel silver dressing and keep the area of the pressure 5-patient did have some clinical improvement the patient white count is trending down keeping in mind extensive infection he will need at least 2-week course of IV vancomycin on discharge this was discussed with the case aide to start working on arrangement for outpatient IV antibiotics Dictation was produced using [employer] dictation software. please excuse any grammatical, word or spelling errors. Time with Patient: Less than 30
[2023-04-16 16:34] LABS: Glucose,Whole Blood 248 mg/dL (70-110)
[2023-04-16 20:43] LABS: Glucose,Whole Blood 279 mg/dL (70-110)
--- NOTE | 2023-04-16 22:26 | P.PN ---
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 Patient states symptom onset was 2 weeks prior to presentation. Patient states he is followed up with outpatient vascular team who ordered drainage. Prior to presentation patient has not been on oral antibiotic. Patient was made to come to the emergency secondary to pleural drainage noted and bleeding noted from the site. Workup initiated in ER include WBC count of 18.2 hemoglobin 11.9 platelet count of 300, serum chemistry shows sodium 133 potassium 4.1, dioxide 26 BUN 14 creatinine 0.67 glucose 166 Serum albumin of 3, alkaline phosphatase 166 Patient was given IV clindamycin and vancomycin, started on fluid resuscitation and admitted to medical floor with consultation from vascular amanda ger and infectious disease 04/14/23: Patient seen and evaluated bedside, on evaluation patient is awake and alert, continue current antibiotic regimen plan to the OR with surgery for wound debridement. Continue to monitor WBC count of 10.2 hemoglobin 10.9 creatinine within normal limits 04/15/23: Patient seen and evaluated at bedside, patient is status post excisional debridement of neck wound postoperative day 1. Continue patient on IV antibiotic vascular surgeon Infectious Disease following will continue to monitor CBC and basic metabolic panel Objective - Vital Signs Vital signs: Vital Signs Temp 98.1 F 04/16/23 07:45 Pulse 63 04/16/23 07:45 Resp 18 04/16/23 07:45 BP 168/77 04/16/23 07:45 Pulse Ox 94 L 04/16/23 07:45 FiO2 21 04/14/23 07:50 Intake & Output 04/15/23 04/16/23 04/16/23 18:59 06:59 18:59 Intake Total 450 Balance 450 Intake: Oral 450 Other: Voiding Method Urinal Urinal Urinal # Voids 2 2 # Bowel Movements 1 2 - Exam GENERAL: The patient is alert and oriented x3, not in any acute distress. Well developed, well nourished. -HEENT: Pupils are round and equally reacting to light. EOMI. No scleral icterus. No conjunctival pallor. Normocephalic, atraumatic. No pharyngeal erythema. No thyromegaly. CARDIOVASCULAR: S1 and S2 present. No murmurs, rubs, or gallops. mild to moderately deep left postauricular abscess, with open wound, minimal purulent discharge with mild surrounding cellulitis PULMONARY: Chest is clear to auscultation, no wheezing , no crackles. ABDOMEN: Soft, nontender, nondistended, normoactive bowel sounds. No palpable organomegaly. MUSCULOSKELETAL: No joint swelling or deformity. EXTREMITIES: No cyanosis, clubbing, or pedal edema. NEUROLOGICAL: Gross neurological examination did not reveal any focal deficits. SKIN: No rashes. no petechiae. - Labs CBC & Chem 7: 04/16/23 04:31 04/16/23 04:31 Labs: Abnormal Lab Results - Last 24 Hours (Table) 04/15/23 04/15/23 04/16/23 Range/Units 17:13 20:07 04:31 WBC (4.50-10.00) X 10*3/uL RBC (4.40-5.60) X 10*6/uL Hgb (13.0-17.0) g/dL Hct (39.6-50.0) % MCHC (32.0-37.0) g/dL Sodium 135 L (137-145) mmol/L Chloride 109 H (98-107) mmol/L Glucose 166 H (74-99) mg/dL POC Glucose (mg/dL) 229 H 207 H (70-110) mg/dL Calcium 8.3 L (8.4-10.2) mg/dL 04/16/23 04/16/23 04/16/23 Range/Units 04:31 05:51 11:28 WBC 11.41 H (4.50-10.00) X 10*3/uL RBC 3.44 L (4.40-5.60) X 10*6/uL Hgb 10.1 L (13.0-17.0) g/dL Hct 31.7 L (39.6-50.0) % MCHC 31.9 L (32.0-37.0) g/dL Sodium (137-145) mmol/L Chloride (98-107) mmol/L Glucose (74-99) mg/dL POC Glucose (mg/dL) 182 H 236 H (70-110) mg/dL Calcium (8.4-10.2) mg/dL Microbiology - Last 24 Hours (Table) 04/12/23 21:35 Blood Culture - Preliminary Blood 04/12/23 21:20 Blood Culture Gram Stain - Final Blood Blood Culture - Final Corynebacterium species 04/13/23 12:20 Anaerobic Culture - Preliminary Neck 04/14/23 17:05 Gram Stain - Preliminary Neck Wound Culture - Preliminary Presumptive MRSA 04/13/23 12:20 Gram Stain - Final Neck Wound Culture - Final Methicillin resist S. aureus 04/12/23 21:50 Gram Stain - Final Neck Wound Culture - Final Methicillin resist S. aureus Assessment and Plan Assessment: Left neck cellulitis with purulent drainage/abscess status post excisional debridement POD 2 Diabetes mellitus type 2 Coronary artery disease history of PCI Peripheral arterial disease History of atrial fibrillation hyperlipidemia Obstructive sleep apnea Chronic kidney disease stage III Plan: Continue with IV vancomycin Continue with gentle hydration Cleared for 2 weeks of IV vancomycin upon discharge per ID team Patient will require PICC line Surgery team following closely Labs and medication were reviewed.. Continue same treatment. Continue with symptomatic treatment. Resume home medication. Monitor labs and vitals. DVT and GI prophylaxis. Further recommendations as per clinical course of the patient DVT prophylaxis: Subcutaneous Lovenox GI Prophylaxis: Pepcid Prognosis is guarded
[2023-04-17 05:35] LABS: African American GFR (CKD) >90 (>60 ml/min/1.73 sqM); Non-African American GFR(CKD) 85 (>60 ml/min/1.73 sqM)
[2023-04-17 05:47] LABS: Glucose,Whole Blood 171 mg/dL (70-110)
--- NOTE | 2023-04-17 11:53 | P.PN ---
Subjective Progress Note Date: 04/17/23 Principal diagnosis: Reason for follow-up is left neck abscess and left leg ulcer Patient is a 83-year-old male with a past medical history significant for hypertension hyperlipidemia diabetes mellitus atrial fibrillation patient did have a left lower extremity ulceration for the patient to follow-up at [facility] wound care center with Dr. Chamberlain apparently the patient has developed a painful lump to the left side of the neck more than a week ago that was attempted to drain in the outpatient setting without any improvement subsequently presenting with worsening pain and swelling to the left neck area.Patient is status post Left neck excisional debridement and drainage of abscess, post debridement Wound measured 10 cm x 6 cm x 5 cm in depth. No bone was exposed., Procedure completed on 04/14/2023 On today's evaluation that is 04/17/2023, Patient is afebrile patient is currently on room air and denies having any shortness of breath, the patient denies any chest pain or cough, the patient denies any nausea vomiting did not have any abdominal pain and no diarrhea, the patient Pain to the left side of the neck has decreased in intensity. Patient creatinine 0.76 blood cultures 04/12/2023 negative anaerobe culture negative Objective - Vital Signs Vital signs: Vital Signs Temp 97.7 F 04/17/23 07:11 Pulse 59 L 04/17/23 07:11 Resp 16 04/17/23 07:11 BP 155/69 04/17/23 07:11 Pulse Ox 99 04/17/23 08:09 FiO2 21 04/14/23 07:50 Intake & Output 04/16/23 04/17/23 04/17/23 18:59 06:59 18:59 Output Total 900 Balance -900 Output: Urine 900 Other: Voiding Method Urinal Urinal Urinal # Voids 4 1 # Bowel Movements 1 1 - Exam GENERAL DESCRIPTION: An elderly male lying in bed in no distress HEENT: Left neck wound base with minimal slough surrounding redness improved minimal drainage on the dressing RESPIRATORY SYSTEM: Unlabored breathing , decreased breath sounds at bases HEART: S1 S2 regular rate and rhythm , ABDOMEN: Soft , no tenderness EXTREMITIES: Left leg wound is currently dressed - Labs CBC & Chem 7: 04/16/23 04:31 04/17/23 04:20 Labs: Abnormal Lab Results - Last 24 Hours (Table) 04/16/23 04/16/23 04/16/23 Range/Units 11:28 16:32 20:41 POC Glucose (mg/dL) 236 H 248 H 279 H (70-110) mg/dL 04/17/23 Range/Units 05:46 POC Glucose (mg/dL) 171 H (70-110) mg/dL Microbiology - Last 24 Hours (Table) 04/14/23 17:05 Anaerobic Culture - Preliminary Neck 04/14/23 17:05 Gram Stain - Final Neck Wound Culture - Final Methicillin resist S. aureus 04/12/23 21:35 Blood Culture - Preliminary Blood 04/12/23 21:20 Blood Culture Gram Stain - Final Blood Blood Culture - Final Corynebacterium species Assessment and Plan (1) Neck abscess Current Visit: Yes Status: Acute Code(s): L02.11 - CUTANEOUS ABSCESS OF NECK SNOMED Code(s): 4811567 (2) MRSA (methicillin resistant staph aureus) culture positive Current Visit: Yes Status: Acute Code(s): Z22.322 - CARRIER OR SUSPECTED CARRIER OF METHICILLIN RESIS STAPH SNOMED Code(s): 553285639 (3) Diabetic ulcer of lower extremity Current Visit: No Status: Acute Code(s): E11.622 - TYPE 2 DIABETES MELLITUS WITH OTHER SKIN ULCER SNOMED Code(s): 062911379 (4) Positive blood culture Current Visit: Yes Status: Acute Code(s): R78.81 - BACTEREMIA SNOMED Code(s): 563111489 Plan: 1present to the hospital with a painful lump to the left side of the neck which is draining pus and blood patient did have elevated white count concerning for abscess and cellulitis likely from gram-positive skin isabel failing outpatient therapy 2-local culture currently growing MRSA, blood culture positive for corynebacterium possible contamination however blood culture repeated document clearance 3-patient is status post surgical drainage and deep culture 4-patient did have wound to the left lower extremity without any slough tissue or cellulitis local wound care will be suggested with dry Aquacel silver dressing and keep the area of the pressure 5-patient slowly clinically improving currently waiting for PICC line placement and outpatient IV antibiotic arrangement before discharge Dictation was produced using [employer] dictation software. please excuse any grammatical, word or spelling errors. Time with Patient: Less than 30
[2023-04-17 11:55] LABS: Glucose,Whole Blood 186 mg/dL (70-110)
[2023-04-17] MEDS: LIDOCAINE 1% INJ 10MG/ML (20 ML MDV) SQ ONE (14:46)
--- NOTE | 2023-04-17 15:57 | P.OP ---
Date of Procedure: 04/17/23 Preoperative Diagnosis: Need for long-term IV antibiotic therapy. Postoperative Diagnosis: Same. Procedure(s) Performed: Insertion of a peripherally inserted central venous catheter via the left cephalic vein with ultrasound and fluoroscopic guidance. Anesthesia: local Surgeon: Ton Scott Estimated Blood Loss (ml): 5 IV fluids (ml): 0 Urine output (ml): 0 Pathology: none sent Condition: stable Disposition: no change Indications for Procedure: Patient is an 83-year-old male who developed a abscess along the left side of the neck which required surgical drainage. Infectious disease recommends long- term IV antibiotic therapy and to accomplish this the patient is now offered a PICC line. Description of Procedure: Patient was brought to the cardiac catheterization laboratory. The left upper extremity was sterilely prepped and draped in usual manner. Ultrasound was utilized to identify the cephalic vein which was of normal caliber and freely compressible without evidence of venous thrombus. 1% Xylocaine was utilized for local anesthesia tissues overlying the cephalic vein. Through this anesthetized area a micropuncture needle was utilized to cannulate the vein. Once cannulated soft tipped guidewire was advanced and the needle was withdrawn. Micropuncture sheath and dilator were advanced over the guidewire. The dilator was withdrawn and the PICC guidewire was advanced into the central venous system. It measured 47 cm to the caval atrial junction and as such the catheter was cut to 47 cm. The catheter was advanced over the guidewire into the central venous system. The sheath was peeled away and the guidewire was withdrawn. Blood was easily aspirated through the catheter and the catheter was then flushed with heparinized saline solution. Appropriate dressings were applied. Patient tolerated the procedure well and was returned to his room in satisfactory and stable condition. Total fluoroscopy time: 0.3 minutes.
[2023-04-17 17:28] LABS: Glucose,Whole Blood 253 mg/dL (70-110)
[2023-04-17 20:37] LABS: Glucose,Whole Blood 187 mg/dL (70-110)
--- NOTE | 2023-04-17 20:52 | P.PN ---
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 Patient states symptom onset was 2 weeks prior to presentation. Patient states he is followed up with outpatient vascular team who ordered drainage. Prior to presentation patient has not been on oral antibiotic. Patient was made to come to the emergency secondary to pleural drainage noted and bleeding noted from the site. Workup initiated in ER include WBC count of 18.2 hemoglobin 11.9 platelet count of 300, serum chemistry shows sodium 133 potassium 4.1, dioxide 26 BUN 14 creatinine 0.67 glucose 166 Serum albumin of 3, alkaline phosphatase 166 Patient was given IV clindamycin and vancomycin, started on fluid resuscitation and admitted to medical floor with consultation from vascular amanda ger and infectious disease 04/14/23: Patient seen and evaluated bedside, on evaluation patient is awake and alert, continue current antibiotic regimen plan to the OR with surgery for wound debridement. Continue to monitor WBC count of 10.2 hemoglobin 10.9 creatinine within normal limits 04/15/23: Patient seen and evaluated at bedside, patient is status post excisional debridement of neck wound postoperative day 1. Continue patient on IV antibiotic vascular surgeon Infectious Disease following will continue to monitor CBC and basic metabolic panel 04/17/2023 pt with no new complaint he is getting picc line today possible dischare tomorrow on iv vancomycine per ID Discussed with case specialist Objective - Vital Signs Vital signs: Vital Signs Temp 97.7 F 04/17/23 07:11 Pulse 59 L 04/17/23 07:11 Resp 16 04/17/23 07:11 BP 155/69 04/17/23 07:11 Pulse Ox 99 04/17/23 08:09 FiO2 21 04/14/23 07:50 Intake & Output 04/16/23 04/17/23 04/17/23 18:59 06:59 18:59 Output Total 900 Balance -900 Output: Urine 900 Other: Voiding Method Urinal Urinal Urinal # Voids 4 1 # Bowel Movements 1 1 - Exam GENERAL: The patient is alert and oriented x3, not in any acute distress. Well developed, well nourished. -HEENT: Pupils are round and equally reacting to light. EOMI. No scleral icterus. No conjunctival pallor. Normocephalic, atraumatic. No pharyngeal erythema. No thyromegaly. CARDIOVASCULAR: S1 and S2 present. No murmurs, rubs, or gallops. mild to moderately deep left postauricular abscess, with open wound, minimal purulent discharge with mild surrounding cellulitis PULMONARY: Chest is clear to auscultation, no wheezing , no crackles. ABDOMEN: Soft, nontender, nondistended, normoactive bowel sounds. No palpable organomegaly. MUSCULOSKELETAL: No joint swelling or deformity. EXTREMITIES: No cyanosis, clubbing, or pedal edema. NEUROLOGICAL: Gross neurological examination did not reveal any focal deficits. SKIN: No rashes. no petechiae. - Labs CBC & Chem 7: 04/16/23 04:31 04/17/23 04:20 Labs: Abnormal Lab Results - Last 24 Hours (Table) 04/16/23 04/16/23 04/17/23 Range/Units 16:32 20:41 05:46 POC Glucose (mg/dL) 248 H 279 H 171 H (70-110) mg/dL 04/17/23 Range/Units 11:54 POC Glucose (mg/dL) 186 H (70-110) mg/dL Microbiology - Last 24 Hours (Table) 04/14/23 17:05 Anaerobic Culture - Preliminary Neck 04/14/23 17:05 Gram Stain - Final Neck Wound Culture - Final Methicillin resist S. aureus 04/12/23 21:35 Blood Culture - Preliminary Blood 04/12/23 21:20 Blood Culture Gram Stain - Final Blood Blood Culture - Final Corynebacterium species Assessment and Plan Assessment: Left neck cellulitis with purulent drainage/abscess status post excisional debridement POD 2 Diabetes mellitus type 2 Coronary artery disease history of PCI Peripheral arterial disease History of atrial fibrillation hyperlipidemia Obstructive sleep apnea Chronic kidney disease stage III Plan: Continue with IV vancomycin Continue with gentle hydration Cleared for 2 weeks of IV vancomycin upon discharge per ID team Patient will require PICC line Surgery team following closely Labs and medication were reviewed.. Continue same treatment. Continue with symptomatic treatment. Resume home medication. Monitor labs and vitals. DVT and GI prophylaxis. Further recommendations as per clinical course of the patient DVT prophylaxis: Subcutaneous Lovenox GI Prophylaxis: Pepcid Prognosis is guarded
[2023-04-18 05:45] LABS: Glucose,Whole Blood 174 mg/dL (70-110)
[2023-04-18 08:15] LABS: African American GFR (CKD) >90 (>60 ml/min/1.73 sqM); Non-African American GFR(CKD) 84 (>60 ml/min/1.73 sqM)
--- NOTE | 2023-04-18 08:20 | P.PN ---
Subjective Progress Note Date: 04/18/23 Principal diagnosis: Neck abscess Patient seen and examined today as a follow-up. No acute changes through the night. PICC line was placed yesterday. He has been afebrile. Wound and blood cultures are finalized, infectious diseases following and adjusting medications. Patient to be discharged with home IV. Objective - Vital Signs Vital signs: Vital Signs Temp 98.4 F 04/17/23 20:08 Pulse 66 04/18/23 01:26 Resp 12 04/17/23 20:08 BP 146/84 04/18/23 03:10 Pulse Ox 97 04/18/23 01:26 FiO2 21 04/14/23 07:50 Intake & Output 04/17/23 04/18/23 04/18/23 18:59 06:59 18:59 Output Total 1100 Balance -1100 Output: Urine 1100 Other: Voiding Method Urinal Urinal # Voids 1 # Bowel Movements 1 - Exam General appearance: The patient is alert, oriented, appears in no acute distress. HET: Head is normocephalic and atraumatic. Pupils are equal and reactive. Neck: Supple. Left side of neck with incision with sutures with iodoform packing. Redness and swelling significantly improved. Abdomen: Soft, nondistended. Extremities: Normal skin color and turgor. Neurological: No focal deficits. - Labs CBC & Chem 7: 04/16/23 04:31 04/18/23 07:43 Labs: Abnormal Lab Results - Last 24 Hours (Table) 04/17/23 04/17/23 04/17/23 Range/Units 11:54 17:27 20:34 POC Glucose (mg/dL) 186 H 253 H 187 H (70-110) mg/dL 04/18/23 Range/Units 05:43 POC Glucose (mg/dL) 174 H (70-110) mg/dL Microbiology - Last 24 Hours (Table) 04/13/23 12:20 Anaerobic Culture - Final Neck Beta Hemolytic Strep Group C Assessment and Plan Assessment: 1. Left infected neck wound with abcess status post surgical incision and drainage 2. Diabetes mellitus 3. Atrial fibrillation 4. Hyperlipidemia 5. Hyper tension 6. Blindness 7. Peripheral vascular disease Plan: 1. Continue antibiotics as recommended from infectious disease 2. Daily dressing change with iodoform packing, 4 x 4 and ABD pad 3. May resume anticoagulation 4. Patient will require outpatient wound care Thank you for this consultation, patient is cleared from vascular surgery for discharge. We will sign off at this time. The impression and plan of care has been dictated as directed. Dr. Yee I performed a history and examination of this patient, discussed the same with the dictator. I agree with the dictator's note ,documented as a scribe. Any additional findings or plans will be noted.
--- NOTE | 2023-04-18 08:38 | IR ---
EXAMINATION TYPE: IR cvc insert >=5 years Intraoperative/procedural fluoroscopic services were provid ed. CLINICAL INDICATION:Male, 83 years old with history of Abx, 0.3m/0.372DAP, 4F 47cm lt cephalic PICC; , [facility] Total fluoroscopy time is 0.3 min. DAP: 0.372 Gycm2 Please see the operative/procedural note for further details.
[2023-04-18] MEDS: VANCOMYCIN TROUGH DUE 1 EACH MISC MISCELLANE ONE (09:39)
[2023-04-18] MEDS: LACTOBACILLUS ACIDOPHILUS/PECT 1 EACH CAPSULE PO SCH (09:41)
[2023-04-18 11:17] LABS: Glucose,Whole Blood 206 mg/dL (70-110)
[2023-04-18 15:21] VITALS: BP 108/64; PULSE 69; RESP 17; TEMP 97.6
--- NOTE | 2023-04-18 16:03 | P.PN ---
Subjective Progress Note Date: 04/18/23 Principal diagnosis: Reason for follow-up is left neck abscess and left leg ulcer Patient is a 83-year-old male with a past medical history significant for hypertension hyperlipidemia diabetes mellitus atrial fibrillation patient did have a left lower extremity ulceration for the patient to follow-up at [facility] wound care center with Dr. Chamberlain apparently the patient has developed a painful lump to the left side of the neck more than a week ago that was attempted to drain in the outpatient setting without any improvement subsequently presenting with worsening pain and swelling to the left neck area.Patient is status post Left neck excisional debridement and drainage of abscess, post debridement Wound measured 10 cm x 6 cm x 5 cm in depth. No bone was exposed., Procedure completed on 04/14/2023 On today's evaluation that is 04/18/2023,the patient denies any fever or any chills, patient is breathing comfortably on room air, the patient denies chest pain shortness of breath and no significant cough, patient denies abdominal pain, no nausea vomiting or diarrhea. Patient pain to the left neck area has decreased in intensity Patient did have normal creatinine Vanco trough was 19 local culture also growing group C strep in addition to the MRSA Objective - Vital Signs Vital signs: Vital Signs Temp 97.8 F 04/18/23 07:30 Pulse 60 04/18/23 07:30 Resp 18 04/18/23 07:30 BP 171/80 04/18/23 07:30 Pulse Ox 98 04/18/23 07:30 FiO2 21 04/14/23 07:50 Intake & Output 04/17/23 04/18/23 04/18/23 18:59 06:59 18:59 Intake Total 250 Output Total 1100 1000 Balance -1100 -750 Intake: Oral 250 Output: Urine 1100 1000 Other: Voiding Method Urinal Urinal # Voids 1 # Bowel Movements 1 1 - Exam GENERAL DESCRIPTION: An elderly male lying in bed in no distress HEENT: Left neck wound base with minimal slough surrounding redness improved minimal drainage on the dressing RESPIRATORY SYSTEM: Unlabored breathing , decreased breath sounds at bases HEART: S1 S2 regular rate and rhythm , ABDOMEN: Soft , no tenderness EXTREMITIES: Left leg wound is currently dressed - Labs CBC & Chem 7: 04/16/23 04:31 04/18/23 07:43 Labs: Abnormal Lab Results - Last 24 Hours (Table) 04/17/23 04/17/23 04/18/23 Range/Units 17:27 20:34 05:43 POC Glucose (mg/dL) 253 H 187 H 174 H (70-110) mg/dL 04/18/23 Range/Units 11:16 POC Glucose (mg/dL) 206 H (70-110) mg/dL Microbiology - Last 24 Hours (Table) 04/12/23 21:35 Blood Culture - Final Blood 04/13/23 12:20 Anaerobic Culture - Final Neck Beta Hemolytic Strep Group C Assessment and Plan (1) Neck abscess Status: Acute Code(s): L02.11 - CUTANEOUS ABSCESS OF NECK SNOMED Code(s): 9816473 (2) MRSA (methicillin resistant staph aureus) culture positive Status: Acute Code(s): Z22.322 - CARRIER OR SUSPECTED CARRIER OF METHICILLIN RESIS STAPH SNOMED Code(s): 402466852 (3) Diabetic ulcer of lower extremity Status: Acute Code(s): E11.622 - TYPE 2 DIABETES MELLITUS WITH OTHER SKIN ULCER SNOMED Code(s): 596895661 (4) Positive blood culture Status: Acute Code(s): R78.81 - BACTEREMIA SNOMED Code(s): 132686174 Plan: 1present to the hospital with a painful lump to the left side of the neck which is draining pus and blood patient did have elevated white count concerning for abscess and cellulitis likely from gram-positive skin isabel failing outpatient therapy 2-local culture currently growing MRSA, blood culture positive for corynebacterium possible contamination however blood culture repeated document clearance 3-patient is status post surgical drainage and deep culture 4-patient did have wound to the left lower extremity without any slough tissue or cellulitis local wound care will be suggested with dry Aquacel silver dressing and keep the area of the pressure 5-patient did got PICC line placement outpatient IV vancomycin has been arranged for the patient hopefully discharge today and close out patient follow-up Dictation was produced using [employer] dictation software. please excuse any grammatical, word or spelling errors. Time with Patient: Less than 30
--- NOTE | 2023-04-18 21:57 | P.DS ---
Providers Date of admission: 04/12/23 22:11 Attending physician: Harman Nichole Consults: 04/12/23 22:10 Consult Physician Stat Consulting Provider: Daysi Kaufman Consult Reason/Comments: neck abscess Do you want consulting provider notified?: Yes, Notify in am Consult Physician Stat Consulting Provider: Rosa Rivera Consult Reason/Comments: neck abscess Do you want consulting provider notified?: Yes, Notify in am Primary care physician: Rosemary Allred Hospital Course: Diagnoses: Left neck cellulitis with purulent drainage/abscess status post excisional debridement POD 2 Diabetes mellitus type 2 Coronary artery disease history of PCI Peripheral arterial disease History of atrial fibrillation hyperlipidemia Obstructive sleep apnea Chronic kidney disease stage III Hospital course: 83-year-old gentleman with past medical history significant for diabetes mellitus, history of coronary artery disease, history of chronic kidney disease, vascular disease, hypertension, hyperlipidemia, 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 Patient states symptom onset was 2 weeks prior to presentation. Patient states he is followed up with outpatient vascular team who ordered drainage. Prior to presentation patient has not been on oral antibiotic. Treated with IV vancomycin, culture was growing MRSA. Patient's status post excision and drainage and deep culture on 04/14 by surgical team. Patient remains improvement. Surgical wound is open and cellulitis is improving. No significant surrounding erythema or swelling. No significant lymphadenopathy. No headache or dizziness or other new complaint. No chest pain or dyspnea. No other new complaint. Patient was cleared for discharge by postsurgical team and infectious disease team. Patient is very eager to go home from yesterday.. Patient will be discharged on IV vancomycin x 2 weeks and patient agrees. PICC line was placed. Problems and management plan were discussed with the patient and he verbalized understanding and acceptance Patient was found stable and can be discharged home in guarded prognosis however he needs follow-up as an outpatient. Patient was instructed to follow up with PCP Dr. Allred within one week and patient agrees Patient was instructed to follow-up with ID team Dr. Iqbal in [address] Yee from vascular surgery in ten days and pt agrees Discussed with senior case manager, discharge arrangements were set up Physical exam -Gen: patient is a AAOx3, no distress. Left neck posterior auricular open wound with minimal surrounding cellulitis CVS: S1-S2, RRR, no murmur Lungs: B/L CTA, no wheezing Abdomen: soft, no distention, no tenderness, positive bowel sounds Extremity: no leg edema or induration Time spent more than 35 minutes Patient Condition at Discharge: Fair Plan - Discharge Summary Discharge Rx Participant: Yes New Discharge Prescriptions: New Vancomycin 1,750 mg IVPB Q24HR 14 Days each Continue Propafenone Sr [Rythmol Sr] 450 mg PO DAILY Omeprazole [PriLOSEC] 20 mg PO DAILY Folic Acid 1 mg PO DAILY Ferrous Sulfate [Iron (65 MG Elemental)] 325 mg PO DAILY Vitamin B Complex 1 cap PO DAILY Potassium Chloride [K-Tab ER] 20 meq PO DAILY #30 tablet.er lisinopriL [Zestril] 2.5 mg PO DAILY Glucagon Emergency Kit 1 mg SQ DIRECTED PRN PRN Reason: Hypoglycemia Tamsulosin HCl [Flomax] 0.8 mg PO HS Atorvastatin [Lipitor] 20 mg PO DAILY hydrALAZINE HCL [Apresoline] 100 mg PO DAILY Ascorbic Acid [Vitamin C] 500 mg PO DAILY Furosemide [Lasix] 80 mg PO BID Melatonin 1 mg PO HS PRN PRN Reason: Insomnia Insulin Aspart [NovoLOG Flexpen] See Protocol SQ ACHS [place]enton-3/Dha/Epa/Fish Oil [Fish Oil 500 mg Softgel] 1 cap PO DAILY Insulin Glargine [Lantus Vial] 30 unit SQ HS Thiamine [Vitamin B-1] 100 mg PO DAILY DULoxetine HCL [Cymbalta] 60 mg PO DAILY Latanoprost [Latanoprost 0.005%] 1 drop BOTH EYES HS Gabapentin 800 mg PO TID Brimonidine Tartrate [Alphagan P 0.2% Ophth Soln] 1 drop BOTH EYES BID Aspirin EC [Ecotrin] 325 mg PO DAILY oxyCODONE-APAP 10-325MG [Percocet 10-325 mg] 1 tab PO Q6H PRN PRN Reason: Pain Discharge Medication List Folic Acid 1 mg PO DAILY 06/17/13 [History] Omeprazole [PriLOSEC] 20 mg PO DAILY 06/17/13 [History] Propafenone Sr [Rythmol Sr] 450 mg PO DAILY 06/17/13 [History] Ferrous Sulfate [Iron (65 MG Elemental)] 325 mg PO DAILY 05/19/17 [History] Vitamin B Complex 1 cap PO DAILY 05/19/17 [History] Potassium Chloride [K-Tab ER] 20 meq PO DAILY #30 tablet.er 05/23/17 [Rx] Atorvastatin [Lipitor] 20 mg PO DAILY 04/10/18 [History] Glucagon Emergency Kit 1 mg SQ DIRECTED PRN 04/10/18 [History] Tamsulosin HCl [Flomax] 0.8 mg PO HS 04/10/18 [History] hydrALAZINE HCL [Apresoline] 100 mg PO DAILY 04/10/18 [History] lisinopriL [Zestril] 2.5 mg PO DAILY 04/10/18 [History] Ascorbic Acid [Vitamin C] 500 mg PO DAILY 10/01/19 [History] Furosemide [Lasix] 80 mg PO BID 10/01/19 [History] DULoxetine HCL [Cymbalta] 60 mg PO DAILY 02/05/22 [History] Insulin Aspart [NovoLOG Flexpen] See Protocol SQ ACHS 02/05/22 [History] Melatonin 1 mg PO HS PRN 02/05/22 [History] Aspirin EC [Ecotrin] 325 mg PO DAILY 04/13/23 [History] Brimonidine Tartrate [Alphagan P 0.2% Ophth Soln] 1 drop BOTH EYES BID 04/13/23 [History] Gabapentin 800 mg PO TID 04/13/23 [History] Insulin Glargine [Lantus Vial] 30 unit SQ HS 04/13/23 [History] Latanoprost [Latanoprost 0.005%] 1 drop BOTH EYES HS 04/13/23 [History] Denton-3/Dha/Epa/Fish Oil [Fish Oil 500 mg Softgel] 1 cap PO DAILY 04/13/23 [History] Thiamine [Vitamin B-1] 100 mg PO DAILY 04/13/23 [History] oxyCODONE-APAP 10-325MG [Percocet 10-325 mg] 1 tab PO Q6H PRN 04/13/23 [History] Vancomycin 1,750 mg IVPB Q24HR 14 Days each 04/18/23 [Rx] Follow up Appointment(s)/Referral(s): [facility], [NON-STAFF] - As Needed Floyd Yee DO [STAFF PHYSICIAN] - 10 Days (surgeon. Office is closed at time of discharge. Please call for follow-up appointment.) Rosemary Allred DO [Primary Care Provider] - 04/21/23 1:40 pm [facility], [REFERRING] - As Needed ([facility] will deliver IV antibiotic this evening between 6-8p.) [facility] [NON-STAFF] - 04/28/23 2:00 pm Tami Rowe [NON-STAFF] - As Needed (wound supplies ordered through [facility].) Rosa Rivera MD [STAFF PHYSICIAN] - 04/30/23 3:00 pm Activity/Diet/Wound Care/Special Instructions: Resting change daily to left neck surgical site, pack with iodoform, cover 4 x 4 and tape heart healthy diet activity is restricted till you see your doctor Discharge Disposition: HOME WITH HOME HEALTH SERVICES
== END 2023-04-18 15:14 | disposition home health service (06) | DRG 623 ==
LOC: EC 21:24 → 4SSUR 22:11
PROVIDERS: ADMIT Hospitalist; ATTEND Hospitalist
PROC: 0JB50ZZ Excision of Left Neck Subcutaneous Tissue and Fascia, Open Approach (ICD-10-PCS; principal; 2023-04-14 07:30)
PROC: 02HV33Z Insertion of Infusion Device into Superior Vena Cava, Percutaneous Approach (ICD-10-PCS; 2023-04-17)
PROC: B5181ZA Fluoroscopy of Superior Vena Cava using Low Osmolar Contrast, Guidance (ICD-10-PCS; 2023-04-17)
PROC: B548ZZA Ultrasonography of Superior Vena Cava, Guidance (ICD-10-PCS; 2023-04-17)
DX: E11.628 Type 2 diabetes mellitus with other skin complications (principal); L02.11 Cutaneous abscess of neck; L97.929 Non-pressure chronic ulcer of unspecified part of left lower leg with unspecified severity; L03.221 Cellulitis of neck; N18.30 Chronic kidney disease, stage 3 unspecified; B95.62 Methicillin resistant Staphylococcus aureus infection as the cause of diseases classified elsewhere; E11.22 Type 2 diabetes mellitus with diabetic chronic kidney disease; E11.51 Type 2 diabetes mellitus with diabetic peripheral angiopathy without gangrene; E11.622 Type 2 diabetes mellitus with other skin ulcer; E66.9 Obesity, unspecified; E78.5 Hyperlipidemia, unspecified; G47.33 Obstructive sleep apnea (adult) (pediatric); H54.7 Unspecified visual loss; H91.90 Unspecified hearing loss, unspecified ear; I25.10 Atherosclerotic heart disease of native coronary artery without angina pectoris; I12.9 Hypertensive chronic kidney disease with stage 1 through stage 4 chronic kidney disease, or unspecified chronic kidney disease; I48.91 Unspecified atrial fibrillation; Z98.61 Coronary angioplasty status; Z89.511 Acquired absence of right leg below knee; Z88.1 Allergy status to other antibiotic agents; Z88.2 Allergy status to sulfonamides; Z68.35 Body mass index [BMI] 35.0-35.9, adult
CPT/HCPCS: 36415; 36573; 70491; 80048; 80053; 80202; 82565; 83605; 85025; 85027; 86850; 86900; 86901; 87040; 87070; 87075; 87077; 87186; 87205; 88304; 94760; 96365; 96375; 99285